=== PATIENT | female | born 1995 | race Caucasian/White ===

== ENCOUNTER 2024-01-27 09:56 | Outpatient (OUT) | payer OTHER, SELFPAY ==
--- NOTE | 2024-01-27 09:58 | US_ITS ---
[address] [address] Patient Name: KEYLA BLANCO MRN: [id number] date: 1995 Sex: F Assigned Patient Location: US Current Patient Location: Accession/Order Number: [id number] Exam Date: 01/27/2024 09:58 Report Date: 01/28/2024 03:20 At the request of: KIMBERLY CHATMAN Procedure: US OB cervical length EXAMINATION: US OB anatomy, US OB cervical length HISTORY: ANATOMY COMPARISON: No relevant comparison available. TECHNIQUE: Transabdominal sonographic examination was performed for obstetrical and evaluation. FINDINGS: Number: 1 Heart Rate: 150 bpm H.B. /min Amniotic Fluid Volume: Subjectively normal Placental Location: ANTERIOR with lower margin 6.0 cm from os. Cervix Length: 3.54 cm ; closed. ANATOMY: Normal Structures -cerebellum, choroid plexus, cisterna magna, lateral cerebral ventricles, orbits, midline falx, hard palate, four-chamber heart, RVOT, LVOT, stomach, kidneys, bladder, umbilical cord insertion into abdomen, three-vessel cord, right upper extremity, left upper extremity, right lower extremity, left lower extremity. SUBOPTIMALLY SEEN: Spine ABNORMALITIES: None BIOMETRY: BPD: 4.64 cm; 20 weeks 0 days; 50.50 % HC: 18.14 cm; 20 weeks 4 days; 67.80 % AC: 16.49 cm; 21 weeks 4 days; 88.10 % FL: 3.29 cm; 20 weeks 2 days; 53.20 % EFW:384.70 g; 89.90 % FL/AC: 19.98 FL/BPD: 71.07 HC/AC: 1.10 GESTATIONAL AGE: Age by EDC: 20 weeks 0 days Age by current US: 20 weeks 4 days ANITRA by current US: 2024-06-11 ANITRA by EDC: 2024-06-15 US/US OB cervical length IMPRESSION: 1. Single live intrauterine with growth detailed above. 2. Suboptimal visualization of the spine due to position. Electronically authenticated by: BABAK FRASER Date: 01/28/2024 03:20
--- NOTE | 2024-01-27 09:58 | US_ITS ---
[address] [address] Patient Name: KEYLA BLANCO MRN: [id number] date: 1995 Sex: F Assigned Patient Location: US Current Patient Location: Accession/Order Number: [id number] Exam Date: 01/27/2024 09:58 Report Date: 01/28/2024 03:20 At the request of: KIMBERLY CHATMAN Procedure: US OB anatomy EXAMINATION: US OB anatomy, US OB cervical length HISTORY: ANATOMY COMPARISON: No relevant comparison available. TECHNIQUE: Transabdominal sonographic examination was performed for obstetrical and evaluation. FINDINGS: Number: 1 Heart Rate: 150 bpm H.B. /min Amniotic Fluid Volume: Subjectively normal Placental Location: ANTERIOR with lower margin 6.0 cm from os. Cervix Length: 3.54 cm ; closed. ANATOMY: Normal Structures -cerebellum, choroid plexus, cisterna magna, lateral cerebral ventricles, orbits, midline falx, hard palate, four-chamber heart, RVOT, LVOT, stomach, kidneys, bladder, umbilical cord insertion into abdomen, three-vessel cord, right upper extremity, left upper extremity, right lower extremity, left lower extremity. SUBOPTIMALLY SEEN: Spine ABNORMALITIES: None BIOMETRY: BPD: 4.64 cm; 20 weeks 0 days; 50.50 % HC: 18.14 cm; 20 weeks 4 days; 67.80 % AC: 16.49 cm; 21 weeks 4 days; 88.10 % FL: 3.29 cm; 20 weeks 2 days; 53.20 % EFW:384.70 g; 89.90 % FL/AC: 19.98 FL/BPD: 71.07 HC/AC: 1.10 GESTATIONAL AGE: Age by EDC: 20 weeks 0 days Age by current US: 20 weeks 4 days ANITRA by current US: 2024-06-11 ANITRA by EDC: 2024-06-15 US/US OB anatomy IMPRESSION: 1. Single live intrauterine with growth detailed above. 2. Suboptimal visualization of the spine due to position. Electronically authenticated by: BBAAK FRASER Date: 01/28/2024 03:20
== END 2024-01-27 09:57 | disposition home or self-care (01) ==
LOC: US 09:56
PROVIDERS: PCP Family Medicine; Visit Provider Midwife
DX: O26.92 Pregnancy related conditions, unspecified, second trimester (principal); Z3A.20 20 weeks gestation of pregnancy
CPT/HCPCS: 76805; 76817

== ENCOUNTER 2024-03-05 15:00 | Observation (INO) | payer OTHER, SELFPAY ==
--- OUTSIDE RECORDS SUMMARY | 2024-03-05 15:19 | XMS_ITS | CCD ---
Author Organization [facility] Informat ion Partnership [employer] [facility] Care Team Providers Care Associate Art Director Name Role Phone CATHI SERRANO Unavailable Unav ailable NO, PHYSICIAN Unavailable Unavailable No, Physician Unavailable Unavailable EDUIN DIAZ Attending Unavailable LYNETTE HAYES Referring Unavailable LYNETTE HAYES Primary Care Unavailable Rosy Harris MD Primary Care Provider Pump TECHNICAL LEAD, Adenike Unavailable Lynette Hayes DO Primary Care Provider [phone] Rosy Harris MD Primary Care Provider PUMP, ADENIKE Attending Unavailable PUMP, ADENIKE Attending Unavailable PUMP, ADENIKE Attending Unavailable COMPA KIMBERLY Irene Attending Unavailable CJO KIMBERLY L Referring Unavailable FLORO KIMBERLY Irene Attending Unavailable FLORO KIMBERLY L Attending Unavailable FLORO KIMBERLY L Referring Unavailable FLORO KIMBERLY L Attending Unavailable Allergies Allergy Classification Reported Allergen(s) Allergy Type Date of Onset Reaction(s) Facility (16 sources) azithromycin; Translations: [AZITHROMYCIN] Drug Allergy 7 GI Intolerance, Vomiting [facility] Three Repository Medications Current Medications Medication Drug Class(es) Dates Sig (Normalized) Sig (Original) Levonorgestrel-Ethin yl Estradiol 0.1 Mg-20 McG Tablet (1 source) Progestin, Estrogen, Progestin-containin g Intrauterine Device take 1 tablet by mouth once daily levonorgestrel-ethi nyl estradiol (AVIANE,ALESSE,LESS ISAAK) 0.1-20 mg-mcg per tablet Take 1 tablet by mouth daily. Active hydrocortisone 25 mg/ml topical cream (1 source) Corticosteroid Start: 11-28-2016 End: 11-28-2017 apply 30 g rectal route twice daily hydrocortisone (ANUSOL-HC) 2.5 % rectal cream Insert into the rectum 2 (two) times a day. 30 g 0 11/28/2016 11/28/2017 Active Vit-Fe Fumarate-FA ( Vitamin) 27-0.8 MG tablet (11 sources) take 1 tablet by mouth in the morning Vit-Fe Fumarate-FA ( Vitamin) 27-0.8 MG tablet Take 1 tablet by mouth in the morning. Active vitamins no.2 ( VITAMIN NO.2 ORAL) (1 source) take 1 tablet by mouth once daily vitamins no.2 ( VITAMIN NO.2 ORAL) Take 1 tablet by mouth daily. Active pyridoxine hydrochloride 25 mg oral tablet (1 source) take 1 tablet by mouth in the morning pyridoxine, vitamin B6, (vitamin B-6) 25 mg tablet Take 1 tablet (25 mg total) by mouth in the morning. Active Completed/Discontinued Medications Medication Drug Class(es) Dates Sig (Normalized) Sig (Original) Multiple Vitamin (multivitamin) tablet (3 sources) End: 11-07-2023 take 1 tablet by mouth once daily Multiple Vitamin (multivitamin) tablet Take 1 tablet by mouth Daily 11/07/2023 Discontinued (Therapy completed) take 1 tablet by mouth once easton y Multiple Vitamin (multivitamin) tablet Take 1 tablet by mouth Daily Active penicillin v potassium 500 mg oral tablet (2 sources) Start: 11-22-2023 End: 11-29-2023 take 1 tablet by mouth in the morning, then take 1 tablet by mouth in the evening, then take 1 tablet by mouth at bedtime penicillin v potassium (Veetid) 500 MG tablet Indications: Group B streptococcal infection Take 1 tablet (500 mg) by mouth in the morning and 1 tablet (500 mg) in the evening and 1 tablet (500 mg) before bedtime. Do all this for 7 days. 21 tablet 11/22/2023 11/29/2023 sertraline 50 mg oral tablet (3 sources) Serotonin Reuptake Inhibitor Start: 09-21-2023 End: 09-20-2024 take 1 tablet by mouth once daily sertraline (Zoloft) 50 MG tablet Indications: Generalized anxiety disorder (CMS/HCC) Take 1 tablet (50 mg) by mouth Daily 30 tablet 11 09/21/2023 11/07/2023 Discontinued (Therapy completed) Problems Active Problems Problem Classification Problem Date Documented Date Episodic/Chronic Anxiety disorders (13 sources) Generalized anxiety disorder; Translations: [Generalized anxiety disorder] Onset: 05-24-2023 05-24-2023 Chronic Asthma (13 sources) Intermittent asthma co-occurrent with allergic rhinitis; Translations: [Mild intermittent asthma, uncomplicated] Onset: 05-24-2023 05-24-2023 Chronic Attention-deficit, conduct, and disruptive behavior disorders (13 sources) Attention deficit hyperactivity disorder, predominantly inattentive type; Translations: [Attention-deficit hyperactivity disorder, predominantly inattentive type] Onset: 05-24-2023 05-24-2023 Chronic Bacterial infection; unspecified site (2 sources) Streptococcus agalactiae infection; Translations: [Streptococcal infection, unspecified site] 11-22-2023 Episodic Menstrual disorders (2 sources) Amenorrhea; Translations: [Amenorrhea, unspecified] 11-07-2023 Chronic Mood disorders (13 sources) Dysthymia; Translations: [Dysthymic disorder] Onset: 05-24-2023 05-24-2023 Chronic Other complications of (2 sources) Finding related to ; Translations: [ related conditions, unspecified, second trimester] 01-03-2024 Episodic Other female genital disorders (12 sources) Premenstrual tension syndrome; Translations: [Premenstrual tension syndrome] Onset: 05-24-2023 05-24-2023 Chronic Other and delivery including normal (17 sources) Encounter for supervision of normal , unspecified, first trimester; Translations: [Normal ] Onset: 10-31-2023 12-07-2023 Episodic Other upper respiratory disease (12 sources) Allergic rhinitis due to animal hair and dander; Translations: [Allergic rhinitis due to animal (cat) (dog) hair and dander] Onset: 05-24-2023 05-24-2023 Chronic Unclassified (1 source) Initial Visit Onset: 10-31-2023 Unclassified (1 source) Patient on antidepressant monitoring plan Onset: 09-21-2023 09-21-2023 Unclassified (1 source) Baseline PHQ-9 Onset: 09-21-2023 09-21-2023 Unclassified (9 sources) OB Reminders Onset: 11-10-2023 11-10-2023 Past or Other Problems Problem Classification Problem Date Documented Da te Episodic/Chronic Anal and rectal conditions (12 sources) Anal fissure; Translations: [Anal fissure, unspecified] Onset: 05-24-2023 Resolved: 05-25-2023 05-25-2023 Episodic Cardiac dysrhythmias (12 sources) Tachycardia; Translations: [Tachycardia, unspecified] Onset: 05-24-2023 Resolved: 05-25-2023 05-25-2023 Episodic Hemorrhoids (3 sources) Residual hemorrhoidal skin tags; Translations: [External hemorrhoids] Onset: 11-28-2016 Episodic Mood disorders (1 source) Mood disorders Onset: 05-26-2022 05-26-2022 Other circulatory disease (12 sources) Elevated blood-pressure reading without diagnosis of hypertension; Translations: [Elevated blood-pressure reading, without diagnosis of hypertension] Onset: 05-24-2023 Resolved: 05-25-2023 05-25-2023 Episodic Other female genital disorders (13 sources) Polyp of cervix; Translations: [Polyp of cervix uteri] Onset: 02-25-2022 05-24-2023 Episodic Other gastrointestinal disorders (12 sources) Constipation; Translations: [Constipation, unspecified] Onset: 05-24-2023 Resolved: 05-25-2023 05-25-2023 Episodic Residual codes; unclassified (13 sources) History of pre-eclampsia; Translations: [Personal history of other complications of , childbirth and the puerperium] Onset: 04-28-2022 Resolved: 05-25-2023 05-25-2023 Episodic Results Test Name Value Interpretation Reference Range Facility Bacteria identified Cx Nom ( U)on 11-10-2023 Appearance (U) Adequate [facility] Bacteria identified Cx Nom (Isol) SEE NOTE Abnormal [facility] Comment on above: 10,000-49,000 CFU/mL of Group B Streptococcus isolated Beta-hemolytic streptococci are predictably susceptible to Penicillin and other beta-lactams. Susceptibility testing not routinely performed. Please contact the laboratory within 3 days if susceptibility testing is desired. Erythromycin and clindamycin are not recommended for treatment of urinary tract infections, but clindamycin may be useful for treatment of rectovaginal colonization or infection. Any amount of group B Streptococcus in urine specimens obtained from females is a marker of genital tract colonization. If this patient is , please refer to ACOG guidelines for appropriate screening and management of women. Internal identifier for Provider [id number] [facility] Interpretation and review of laboratory results Abnormal [facility] Specimen source Nom (Unsp spec) URINE [facility] STATUS FINAL [facility] Laboratory - Drug toxicology on 11-10-2023 0-Ohvdwpkcbc-3,5-Dimethy l-3,3-Diphenylpyrrolidin e (EDDP) Ql (U) Negative NINF - 100 ng/mL [facility] Amphetamines Ql (U) Negative NINF - 5 00 ng/mL [facility] Barbiturates Ql (U) Negative NINF - 3 00 ng/mL [facility] Benzodiazepines Ql (U) Negative NINF - 100 ng/mL [facility] Benzoylecgonine Ql (U) Negative NINF - 150 ng/mL [facility] Opiates Ql (U) Negative NINF - 100 ng/mL [facility] oxyCODONE Ql (U) Negative NINF - 100 ng/mL [facility] Phencyclidine Ql (U) Negative NINF - 25 ng/mL [facility] Tetrahydrocannabinol Screen method >20 ng/mL Ql (U) Negative NINF - 20 ng/mL [facility] Laboratory - Urinalysison Bacteria LM.HPF (Urine sed) [#/Area] NONE SEEN NONE SEEN /HPF [facility] Epithelial cells.squamous LM.HPF (Urine sed) [#/Area] 0-5 < OR = 5 /HPF [facility] Hyaline casts (Urine sed) [#/Area] NONE SEEN NONE SEEN /LPF [facility] RBC LM.HPF (Urine sed) [#/Area] NONE SEEN < OR = 2 /HPF [facility] WBC LM.HPF (Urine sed) [#/Area] NONE SEEN < OR = 5 /HPF [facility] N. gonorrhoeae DNA YULIYA+probe Ql (Cervical mucus)on 11-10-2023 C. trachomatis rRNA YULIYA+probe Ql (Unsp spec) Not detected NOT DETECTED [facility] N. gonorrhoeae rRNA YULIYA+probe Ql (Unsp spec) Not detected NOT DETECTED [facility] No Panel Informationon 11-09 (ALWAYS MESSAGE) [facility] Comment on above: See Note 1 Note 1 This drug testing is for medical treatment only. Analysis was performed as non-forensic testing and these results should be used only by healthcare providers to render diagnosis or treatment, or to monitor progress of medical conditions. For assistance with interpreting these drug results, please contact a [facility]ist: [phone] ( ), M-F, 8am-6pm EST. The analytical perfo rmance characteristics of this assay, when used to test SurePath(TM) specimens have been determined by [facility]. The modifications have not been cleared or approved by the FDA. This assay has been validated pursuant to the CLIA regulations and is used for clinical purposes. For additional information, please refer to https://education.Wowsai/faq/MGA010 (This link is being provided for information/ educational purposes only.) Performing Organization Information Site ID: QPT Name: [facility] Address: [address] [place] [address], [address] [place] [id number] Director: Filemon Chadwick MD [facility] CBC panel Auto (Bld)on 11-07 Erythrocyte distribution width (RBC) [Ratio] 12.8 % 11.0 - 15.0 % [facility] Hematocrit (Bld) [Volume fraction] 42.4 % 35.0 - 45.0 % [facility] Hemoglobin (Bld) [Mass/Vol] 14.2 g/dL 11.7 - 15.5 g/dL [facility] MCH (RBC) [Entitic mass] 30 pg 27. 0 - 33.0 pg [facility] MCHC (RBC) [Mass/Vol] 33.5 g/dL 32.0 - 36.0 g/dL [facility] Comment on above: For adults, a slight decrease in the calculated MCHC value (in the range of 30 to 32 g/dL) is most likely not clinically significant; however, it should be interpreted with caution in correlation with other red cell parameters and the patient's clinical condition. MCV (RBC) [Entitic vol] 89.5 fL 80.0 - 100.0 fL [facility] Platelet mean volume (Bld) [Entitic vol] 9.2 fL 7.5 - 12.5 fL [facility] Platelets (Bld) [#/Vol] 269 10*3/uL [facility] RBC (Bld) [#/Vol] 4.74 10*6/uL [facility] WBC (Bld) [#/Vol] 7.6 10*3/uL [facility] Laboratory - Blood bankon ABO group Nom (Bld) A [facility] Blood group antibody screen Ql Detected [facility] Comment on above: Reference range No antibodies detected This assay is a screening test for the detection of red blood cell antibodies. The test is not to be used for pretransfusion screening or for the medical management of an alloimmunized . Rh Nom (Bld) Positive [facility] Comment on above: For additional information, please refer to http://Hair Scynce.YuanV/faq/SFY745 (This link is being provided for informational/ educational purposes only.) Laboratory - Chemistry and C hemistry - challengeon 11-08-2023 TSH Qn 1.09 m[IU]/L mIU/L [facility] Comment on above: Reference Range > or = 20 Years 0.40-4.50 Ranges First trimester 0.26-2.66 Second trimester 0.55-2.73 Third trimester 0.43-2.91 Laboratory - Hematology and Cell countson 11-08-2023 HbA1c (Bld) [Mass fraction] 5 % [facility] Comment on above: For the purpose of s creening for the presence of diabetes: <5.7% Consistent with the absence of diabetes 5.7-6.4% Consistent with increased risk for diabetes (prediabetes) > or =6.5% Consistent with diabetes This assay result is consistent with a decreased risk of diabetes. Currently, no consensus exists regarding use of hemoglobin A1c for diagnosis of diabetes in children. According to [place] [employer] (ADA) guidelines, hemoglobin A1c <7.0% represents optimal control in non- diabetic patients. Different metrics may apply to specific patient populations. Standards of Medical Care in Diabetes(ADA). Laboratory - Microbiology an d Antimicrobial susceptibilityon 11-08-2023 HBV surface Ag IA Ql Non-Reactive NON-REACTIVE [facility] Comment on above: For additional information, please refer to http://Hair Scynce.Wowsai/faq/GUB650 (This link is being provided for informational/ educational purposes only.) HCV Ab IA Ql Non-Reactive NON-REACTIVE [facility] Comment on above: HCV antibody was non-reactive. There is no laboratory evidence of HCV infection. In most cases, no further action is required. However, if recent HCV exposure is suspected, a test for HCV RNA (test code 02621) is suggested. For additional information please refer to http://education.Wowsai/faq/GQK91i0 (This link is being provided for informational/ educational purposes only.) HIV 1+2 Ab+HIV1 p24 Ag IA Ql Non-Reactive NON-REACTIVE [facility] Comment on above: HIV-1 antigen and HI V-1/HIV-2 antibodies were not detected. There is no laboratory evidence of HIV infection. PLEASE NOTE: This information has been disclosed to you from records whose confidentiality may be protected by state law. If your state requires such protection, then the state law prohibits you from making any further disclosure of the information without the specific written consent of the person to whom it pertains, or as otherwise permitted by law. A general authorization for the release of medical or other information is NOT sufficient for this purpose. For additional information please refer to http://education.Wowsai/faq/XNY583 (This link is being provided for informational/ educational purposes only.) The performance of this assay has not been clinically validated in patients less than 2 years old. Reagin Ab RPR Ql (S) Non-Reactive NON-REACTIVE [facility] Rubella virus IgG Qn (S) 1.68 [IU]/mL Index [facility] Comment on above: Index Interpretation ----- <0.90 Not consistent with immunity 0.90-0.99 Equivocal > or = 1.00 Consistent with immunity The presence of rubella IgG antibody suggests immunization or past or current infection with rubella virus. No Panel Informationon 11-07 MULTIPLE COLLECTION TIMES FOR SAME TEST TYPE. [employer] Organization Information Site ID: QPT Name: [facility] Address: [address] [place] [address], [address] [place] [phone] Director: Filemon Chadwick MD [facility] HCG ( test) Ql (U)o n 11-07-2023 Interpretation and review of laboratory results Abnormal [facility] Preg Test, Ur Positive [facility] US OB < 14 WEEKS EARLYon US OB < 14 WEEKS EARLY EXAM: OB Ultrasound: REASON FOR EXAM: Viability/dating. Amenorrhea. TECHNIQUE: Grayscale imaging is performed. Measurements: heart rate: 174 bpm Sac: 3.2 cm CRL: 1.8 cm GA for sonogram: 8.3 wk (07.6 - 09.0) ANITRA: 06/15/2024 Clinical Summary: Early intrauterine is seen with positive cardiac activity. heart is observed with a heart rate of 174 bpm. Dictated and transcribed 11/07/2023/ This report has been electronically signed and approved by the interpreting radiologist. Electronically Signed Carmelo Perez M.D. 2023-11-07 15:57:52 Normal Not Available Complete Blood Count with Au to Diffon 01-27-2021 Basophils (Bld) [#/Vol] 0.03 10*3/uL Normal 0.00-0.20 [facility] Comment on above: Performed By: #### C BCAD, LIPD, TSH reflex FT4, CMP #### [facility] [address] [place], [place] [id number] Basophils/100 WBC (Bld) 0.3 % Normal [facility] Comment on above: Performed By: #### C BCAD, LIPD, TSH reflex FT4, CMP #### [facility] [address], [place] [id number] Eosinophils (Bld) [#/Vol] 0.07 10*3/uL Normal 0.02-0.50 [facility] Comment on above: Performed By: #### C BCAD, LIPD, TSH reflex FT4, CMP #### [facility] [address], [place] [id number] Eosinophils/100 WBC (Bld) 0.6 % Normal [facility] Comment on above: Performed By: #### C BCAD, LIPD, TSH reflex FT4, CMP #### [facility] [address], [place] [id number] Erythrocyte distribution width (RBC) [Ratio] 12.4 % Normal 11.0-15.0 [facility] Comment on above: Performed By: #### C BCAD, LIPD, TSH reflex FT4, CMP #### [facility] [address], [place] [id number] Hematocrit (Bld) [Volume fraction] 37.9 % Normal 35.0-47.0 [facility] Comment on above: Performed By: #### C BCAD, LIPD, TSH reflex FT4, CMP #### [facility] [address], [place] [id number] Hemoglobin (Bld) [Mass/Vol] 12.6 g/dL Normal 11.6-15.5 [facility] Comment on above: Performed By: #### C BCAD, LIPD, TSH reflex FT4, CMP #### [facility] [address], [place] [id number] Lymphocytes (Bld) [#/Vol] 1.5 10*3/uL Normal 0.9-3.9 [facility] Comment on above: Performed By: #### C BCAD, LIPD, TSH reflex FT4, CMP #### [facility] [address], [place] [id number] Lymphocytes/100 WBC (Bld) 12.4 % Normal [facility] Comment on above: Performed By: #### C BCAD, LIPD, TSH reflex FT4, CMP #### [facility] [address], [place] [id number] MCH (RBC) [Entitic mass] 29.1 pg Normal 27.0-33.0 [facility] Comment on above: Performed By: #### C BCAD, LIPD, TSH reflex FT4, CMP #### [facility] [address], [place] [id number] MCHC (RBC) [Mass/Vol] 33.2 g/dL Normal 32.0-36.0 [facility] Comment on above: Performed By: #### C BCAD, LIPD, TSH reflex FT4, CMP #### [facility] [address], [place] [id number] MCV (RBC) [Entitic vol] 88 fL Normal 80-100 [facility] Special[facility] Comment on above: Performed By: #### C BCAD, LIPD, TSH reflex FT4, CMP #### [facility] [address], [place] [id number] Monocytes (Bld) [#/Vol] 0.9 10*3/uL Normal 0.2-0.9 [facility] Comment on above: Performed By: #### C BCAD, LIPD, TSH reflex FT4, CMP #### [facility] [address], [place] [id number] Monocytes/100 WBC (Bld) 7.5 % Normal [facility] Comment on above: Performed By: #### C BCAD, LIPD, TSH reflex FT4, CMP #### [facility] [address], [place] [id number] Neutrophils (Bld) [#/Vol] 9.4 10*3/uL High 1.5-7.8 [facility] Comment on above: Performed By: #### C BCAD, LIPD, TSH reflex FT4, CMP #### [facility] [address], [place] [id number] Neutrophils/100 WBC (Bld) 78.7 % Normal [facility] Comment on above: Performed By: #### C BCAD, LIPD, TSH reflex FT4, CMP #### [facility] [address], [place] [id number] Platelet mean volume (Bld) [Entitic vol] 9.80 fL Normal 7.50-12.50 [facility] Comment on above: Performed By: #### C BCAD, LIPD, TSH reflex FT4, CMP #### [facility] [address] [place], [place] [id number] Platelets (Bld) [#/Vol] 308 10*3/uL Normal 140-400 [facility] Comment on above: Performed By: #### C BCAD, LIPD, TSH reflex FT4, CMP #### [facility] [address] [place], [place] [id number] RBC (Bld) [#/Vol] 4.33 10*6/uL Normal 3.90-5.20 [facility] Specialist Comment on above: Performed By: #### C BCAD, LIPD, TSH reflex FT4, CMP #### [facility] [address] [place], [place] [id number] RDW-SD 39.6 fL Normal 37.0-50.0 [facility] Comment on above: Performed By: #### C BCAD, LIPD, TSH reflex FT4, CMP #### [facility] [address], [place] [id number] WBC (Bld) [#/Vol] 11.9 10*3/uL High 3.8-11.0 [facility] Comment on above: Performed By: #### C BCAD, LIPD, TSH reflex FT4, CMP #### [facility] [address] [place], [place] [id number] [facility] 01-27-2021 Albumin [Mass/Vol] 4.9 g/dL Normal 3.6-5.1 [facility] Comment on above: Performed By: #### C BCAD, LIPD, TSH reflex FT4, CMP #### [facility] [address], [place] [id number] Albumin/Globulin [Mass ratio] 1.9 {ratio} Normal 1.0-2.5 [facility] Comment on above: Performed By: #### C BCAD, LIPD, TSH reflex FT4, CMP #### [facility] [address], [place] [id number] ALP [Catalytic activity/Vol] 73 U/L Normal 35-119 [facility] Comment on above: Performed By: #### C BCAD, LIPD, TSH reflex FT4, CMP #### [facility] [address], [place] [id number] ALT [Catalytic activity/Vol] 9 U/L Normal 6-33 [facility] Comment on above: Result Comment: 01/06 Female reference range changed. Performed By: #### C BCAD, LIPD, TSH reflex FT4, CMP #### [facility] [address], [place] [id number] Anion gap [Moles/Vol] 16 mmol/L Normal 12-20 [facility] Comment on above: Result Comment: Effe ctive 02/11/2019 reference range changed. Performed By: #### C BCAD, LIPD, TSH reflex FT4, CMP #### [facility] [address], [place] [id number] AST [Catalytic activity/Vol] 14 U/L Normal 9-34 [facility] Comment on above: Performed By: #### C BCAD, LIPD, TSH reflex FT4, CMP #### [facility] [address], [place] [id number] Bilirubin [Mass/Vol] 0.90 mg/dL Normal 0.30-1.20 [facility] Comment on above: Performed By: #### C BCAD, LIPD, TSH reflex FT4, CMP #### [facility] [address] [place], [place] [id number] BUN/CREA 18 Ratio Normal 6-22 [facility] Comment on above: Performed By: #### C BCAD, LIPD, TSH reflex FT4, CMP #### [facility] [address] [place], [place] [id number] Calcium [Mass/Vol] 10.1 mg/dL Normal 8.6-10.2 [facility] Comment on above: Performed By: #### C BCAD, LIPD, TSH reflex FT4, CMP #### [facility] [address] [place], [place] [id number] Chloride [Moles/Vol] 105 mmol/L Normal 98-107 [facility] Comment on above: Performed By: #### C BCAD, LIPD, TSH reflex FT4, CMP #### [facility] [address] [place], [place] [id number] CO2 [Moles/Vol] 24 mmol/L Normal 20-31 [facility] Comment on above: Performed By: #### C BCAD, LIPD, TSH reflex FT4, CMP #### [facility] [address] [place], [place] [id number] Creatinine [Mass/Vol] 0.6 mg/dL Normal 0.6-1.4 [facility] Comment on above: Performed By: #### C BCAD, LIPD, TSH reflex FT4, CMP #### [facility] [address] [place], [place] [id number] eGFRAA 149 mL/min/1.73m2 Normal >60 [facility] Specialist Comment on above: Performed By: #### C BCAD, LIPD, TSH reflex FT4, CMP #### [facility] [address] [place] [id number] eGFRNAA 123 mL/min/1.73m2 Normal >60 [facility] Specialist Comment on above: Performed By: #### C BCAD, LIPD, TSH reflex FT4, CMP #### [facility] [address] [place], [place] [id number] Globulin (S) [Mass/Vol] 2.6 g/dL Normal 1.9-3.7 [facility] Comment on above: Performed By: #### C BCAD, LIPD, TSH reflex FT4, CMP #### [facility] [address] [place], [place] [id number] Glucose [Mass/Vol] 88 mg/dL Normal 65-99 [employer] [place] [employer] Coordinator Comment on above: Result Comment: For FASTING Glucose --- ADA reference ranges: Normal 65-99 mg/dl Prediabetes 100-125 Diabetes >/= 126 Performed By: #### C BCAD, LIPD, TSH reflex FT4, CMP #### [facility] [address] [place], [place] [id number] Potassium [Moles/Vol] 4.1 mmol/L Normal 3.5-5.5 [facility] Specialist Comment on above: Performed By: #### C BCAD, LIPD, TSH reflex FT4, CMP #### [facility] [address] [place], [place] [id number] Protein [Mass/Vol] 7.5 g/dL Normal 6.1-8.1 [employer] [place] [employer] Comment on above: Performed By: #### C BCAD, LIPD, TSH reflex FT4, CMP #### [facility] [address] [place], [place] [id number] Sodium [Moles/Vol] 140 mmol/L Normal 135-146 [employer] [place] [employer] Coordinator Comment on above: Performed By: #### C BCAD, LIPD, TSH reflex FT4, CMP #### [facility] [address] [place], [place] [id number] Urea nitrogen [Mass/Vol] 11 mg/dL Normal 7-25 [facility] Specialist Comment on above: Performed By: #### C BCAD, LIPD, TSH reflex FT4, CMP #### [facility] [address] [place], [place] [id number] Lipid Panelon 01-27-2021 Cholesterol [Mass/Vol] 152 mg/dL Normal 125-200 [facility] Comment on above: Result Comment: Low risk < 200mg/dL Borderline risk 201-239 mg/dl High risk > or equal to 240 Performed By: #### C BCAD, LIPD, TSH reflex FT4, CMP #### [facility] [address] [place], [place] [id number] Cholesterol in HDL [Mass/Vol] 50 mg/dL Normal >40 [facility] Specialist Comment on above: Result Comment: High Cardiovascular Risk HDL <40 mg/dL Low Cardiovascular Risk HDL > or equal to 60 mg/dl Performed By: #### C BCAD, LIPD, TSH reflex FT4, CMP #### [facility] [address] [place], [place] [id number] Cholesterol in LDL [Mass/Vol] 91 mg/dL Normal [facility] Comment on above: Result Comment: LDL ATP III CLASSIFICATION LDL less than 100 mg/dl Optimal LDL 100-129 mg/dl Near or above optimal LDL 130-159 Borderline high LDL 160-189 High LDL greater than 189 mg/dl Very High Performed By: #### C BCAD, LIPD, TSH reflex FT4, CMP #### [facility] [address] [place], [place] [id number] Cholesterol in VLDL [Mass/Vol] 11 mg/dL Normal [facility] Specialist Comment on above: Performed By: #### C BCAD, LIPD, TSH reflex FT4, CMP #### [facility] [address] [place], [place] [id number] Cholesterol.total/Choles terol in HDL [Mass ratio] 3 {ratio} Normal [facility] Specialist Comment on above: Performed By: #### C BCAD, LIPD, TSH reflex FT4, CMP #### [facility] [address] [place], [place] [id number] Triglyceride [Mass/Vol] 55 mg/dL Normal 30-150 [facility] Fundraising Coordinator Comment on above: Result Comment: TRIG ATPIII CLASSIFICATIONS TRIG less than 150 mg/dl Normal TRIG 150-199 mg/dl Borderline High TRIG 200-500 mg/dl High TRIG greather than 500 mg/dl Very High Performed By: #### C BCAD, LIPD, TSH reflex FT4, CMP #### [facility] [address] [place], [place] [id number] Q - CULTURE,URINE,ROUTINEon 01-27-2021 CULTURE, URINE, ROUTINE SEE NOTE Normal [facility] Fundraising Coordinator Comment on above: Order Comment: [facility] Testing performed at: [employer] [employer] [facility], [address] [place] [address], [address] [place] [address], [phone], Website Developer: Filemon Chadwick MD [facility] Collection Date/Time: [facility] Results Received Date/Time: [facility] Reported Date/Time: Result Comment: CULT URE, URINE, ROUTINE Micro Number: [id number] Test Status: Final Specimen Source: Urine Specimen Quality: Adequate Result: Growth of mixed jairo was isolated, suggesting probable contamination. No further testing will be performed. If clinically indicated, recollection using a method to minimize contamination, with prompt transfer to Urine Culture Transport Tube, is recommended. Performed By: #### [id number] #### [facility] Default [address] [place] [address] TSH w/ Reflex to Free T4on 1 03-30-2020 TSH 0.733 uIU/mL Normal 0.400-4.500 [facility] Fundraising Coordinator Comment on above: Performed By: #### C BCAD, LIPD, TSH reflex FT4, CMP #### [facility] [address] [place], [place] [id number] Vital Signs Date Time Vital Sign Value Performing Clinician Facility 02-06-2024 11:29-0500 Body mass index (BMI) [Ratio] 30.21 kg/m2 Kimberly Barajas CNM Work Phone: [facility] 02-06-2024 11:29-0500 Body weight 86.18 kg Kimberly Floro CNM Work Phone: [facility] 02-06-2024 11:29-0500 Diastolic blood pressure 80 mm[Hg] Kimberly Floro CNM Work Phone: [facility] 02-06-2024 11:29-0500 Systolic blood pressure 118 mm[Hg] Kimberly Floro CNM Work Phone: [facility] 01-03-2024 11:25-0500 Body mass index (BMI) [Ratio] 29.25 kg/m2 Kimberly Floro CNM Work Phone: [facility] 01-03-2024 11:25-0500 Body weight 83.46 kg Kimberly Floro CNM Work Phone: [facility] 01-03-2024 11:25-0500 Diastolic blood pressure 80 mm[Hg] Kimberly Floro CNM Work Phone: [facility] 01-03-2024 11:25-0500 Systolic blood pressure 120 mm[Hg] Kimberly Floro CNM Work Phone: [facility] 12-07-2023 10:28-0400 Body mass index (BMI) [Ratio] 29.73 kg/m2 Kimberly Floro CNM Work Phone: [facility] 12-07-2023 10:28-0400 Body weight 84.82 kg Kimberly Floro CNM Work Phone: [facility] 11-07-2023 10:28-0400 Body mass index (BMI) [Ratio] 29.09 kg/m2 Kimberly Floro CNM Work Phone: [facility] 11-07-2023 10:28-0400 Body weight 83.01 kg Kimberly Floro CNM Work Phone: [facility] 11-28-2016 17:31-0400 BMI (Body Mass Index) 27.28 kg/m2 Cathi Serrano [facility] Work Phone: 11-28-2016 17:31-0400 Body Temperature 99.19 [degF] Cathi Serrano [facility] Work Phone: 11-28-2016 17:31-0400 BP Diastolic 93 mm[Hg] Cathi Serrano [facility] Work Phone: 11-28-2016 17:31-0400 BP Systolic 143 mm[Hg] Cathi Serrano [facility] Work Phone: 11-28-2016 17:31-0400 Height 167.6 cm Cathi Serrano [facility] Work Phone: 11-28-2016 17:31-0400 Pulse (Heart Rate) 76 /min Cathi Serrano [facility] Work Phone: 11-28-2016 17:31-0400 Pulse Oximetry 98 % Cathi Serrano [facility] Work Phone: 11-28-2016 17:31-0400 Respiratory Rate 16 /min Cathi Serrano [facility] Work Phone: 11-28-2016 17:31-0400 Weight 76.66 kg Cathi Serrano [facility] Work Phone: Encounters Encounter Date Encounter Type Care Provider Facility Start: 02-06-2024 End: 02-06-2024 Bamboo flowsheet Kimberly Barajas CN Work Phone: [facility] Start: 02-06-2024 End: 02-06-2024 Bamboo flowsheet Kimberly Pérezo CNM Work Phone: [facility] Start: 02-06-2024 End: 02-06-2024 Subsequent care visit Kimberly Barajas CNM Work Phone: [facility] Comment on above: Encounter for superv ision of other normal , second trimester (Primary Dx) Start: 02-06-2024 End: 02-06-2024 ambulatory KIMBERLY BARAJAS Not Available Start: 01-03-2024 End: 01-03-2024 Bamboo flowsheet Kimberly Irene Pérezo CNM Work Phone: [facility] Start: 01-03-2024 End: 01-03-2024 Bamboo flowsheet Kimberly L Floro CNM Work Phone: [facility] Start: 01-03-2024 End: 01-03-2024 Subsequent care visit Kimberly Pérezo CNM Work Phone: [facility] Comment on above: examinatio n or test, positive result; Encounter for supervision of other normal , first trimester; related condition in second trimester Start: 01-03-2024 End: 01-03-2024 ambulatory KIMBERLY L FLORO Not Available Start: 12-07-2023 End: 12-07-2023 Bamboo flowsheet Kimberly L Floro CNM Work Phone: [facility] Start: 12-07-2023 End: 12-07-2023 Bamboo flowsheet Kimberly L Floro CNM Work Phone: [facility] Start: 12-07-2023 End: 12-07-2023 Subsequent care visit Kimberly Pérezo CNM Work Phone: [facility] Comment on above: Encounter for superv ision of other normal , second trimester (Primary Dx) Start: 12-07-2023 End: 12-07-2023 ambulatory KIMBERLY L FLORO Not Available Start: 11-14-2023 End: 11-16-2023 Telephone encounter Caitlin Oreillyedicjenny [facility]ician [facility] Obstetrics[facility]Gynecology Start: 11-07-2023 End: 11-07-2023 Bamboo flowsheet Kimberly L Floro CNM Work Phone: [facility] Start: 11-07-2023 End: 11-07-2023 Bamboo flowsheet Kimberly L Floro CNM Work Phone: [facility] Start: 11-07-2023 End: 11-07-2023 Initial care visit Kimberly L Floro CNM Work Phone: [facility] Comment on above: GA: 8w3d Start: 11-07-2023 End: 11-07-2023 ambulatory KIMBERLY L FLORO Not Available Start: 10-31-2023 End: 10-31-2023 ambulatory [facility] Start: 09-21-2023 End: 09-21-2023 ambulatory ADENIKE PUMP Not Available Start: 06-22-2023 End: 06-22-2023 ambulatory ADENIKE PUMP Not Available Start: 05-25-2023 End: 05-25-2023 ambulatory ADENIKE PUMP Not Available Start: 11-28-2016 End: 11-28-2016 Ambulatory CATHI SERRANO [facility] Start: 11-28-2016 End: 11-28-2016 Office outpatient new 30 minutes Cathi Serrano Work Phone: [facility] [place] Comment on above: External hemorrhoid (Primary Dx) Procedures Date Procedure Procedure Detail Performing Clinician Start: 11-07-2023 End: 11-07-2023 Culture bacterial quanttative colony count urine Kimberly L Floro CNM Work Phone: Start: 11-07-2023 DRUG TOX MONITORIGN 6 W/ CONF,URINE Kimberly L Floro CNM Work Phone: Start: 11-07-2023 URINALYSIS MICROSCOPIC Kimberly L Floro C NM Work Phone: Start: 11-07-2023 Antibody screen rbc each serum technique Kimberly L Floro CNM Work Phone: Start: 11-07-2023 Hemoglobin glycosylated a1c Kimberly L Floro CNM Work Phone: Start: 11-07-2023 TSH W/REFLEX TO FT4 Kimberly L Floro CNM Work Phone: Start: 11-07-2023 Urine test visual color cmprsn meths Kimberly L Floro CNM Work Phone: Start: 05-24-2023 End: 05-25-2023 History of cholecystectomy History of laparoscopic cholecystectomy Kimberly Barajas CNM Work Phone: Start: 06-01-2022 Microscopic observation [Identifier] in Cervix by Cyto stain Caitlin Eaton Start: 05-26-2022 Adult depression screening assessment Caitlin Eaton Plan of Treatment Date Care Activity Detail Author Start: 02-10-2032 DTaP,Tdap and Td Vaccines (8 - Td or Tdap) DTaP,Tdap and Td Vaccines (8 - Td or Tdap) [facility] Start: 06-01-2025 Screening for malign ant neoplasm of cervix Pap Smear [facility] Start: 10-30-2024 Tobacco Screening Tobacco Screening [facility] Start: 03-20-2024 End: 03-20-2024 Patient encounter procedure 03/20/2024 8:00 AM EST Office Visit [facility] [address] [place] [id number] Adenike Atkins NP [address] [place] [address] [facility] Start: 03-05-2024 End: 03-05-2024 Patient encounter procedure 03/05/2024 1:00 PM EST Routine [facility] [address] [place] [phone] Kimberly Barajas CNM [address] [place] [address] [facility] Start: 02-06-2024 End: 02-06-2024 Patient encounter procedure [facility] Comment on above: Arrived Start: 01-03-2024 End: 01-02-2025 US for US OB follow up transabdominal approach Imaging Routine related condition in second trimester Expected: 01/03/2024, Expires: 01/02/2025 [facility] Work Phone: Comment on above: Expected: 01/03/2024 , Expires: 01/02/2025 Start: 01-03-2024 End: 01-03-2024 Patient encounter procedure [facility] Comment on above: examinatio n or test, positive result; Encounter for supervision of other normal , first trimester Start: 12-07-2023 End: 12-07-2023 Patient encounter procedure 12/07/2023 10:15 AM EDT Routine [facility] [address] [place] [phone] Kimberly Barajas, CNM [address] [place] [address] Arrived [facility] Comment on above: Arrived Start: 11-07-2023 End: 11-07-2023 Professional / ancillary services management 11/07/2023 11:00 AM EDT Ancillary Procedure [facility] [address] [id number] [facility] Start: 11-07-2023 End: 11-07-2023 ambulatory 11/07/2023 10:30 AM EDT Initial [facility] [address] [place] [phone] Kimberly Barajas, JUDITH [address] [place] [address] Arrived [facility] Comment on above: Arrived Start: 10-08-2023 COVID-19 Vaccine ( season) COVID-19 Vaccine ( season) [facility] Start: 10-08-2023 Influenza vaccination [facility] Start: 06-02-2023 Adult BMI Screening Adult BMI Screen ing [facility] Start: 05-27-2023 Depression Screening Depression Scre ening [facility] Start: 10-07-2016 Influenza vaccination SEQUENTI AL INFLUENZA VACCINE (#1) [facility] Work Phone: Start: 06-21-2007 Vaccination for li n papillomavirus HPV VACCINES (1 of 3 - Female 3 Dose Series) [facility] Work Phone: Start: 1996 Tetanus vaccination TETANUS EVERY 10 YR [facility] Work Phone: Immunizations Immunization Date Immunization Notes Care Provider Jack hernandez 02-09-2022 tetanus toxoid, reduced diphtheria toxoid, and acellular pertussis vaccine, adsorbed Kimberly Floro CNM Work Phone: [facility] 12-01-2021 influenza, injectabl e, quadrivalent, preservative free Kimberly Floro CNM Work Phone: [facility] 12-01-2021 influenza virus vaccine, unspecified formulation Kimberly Floro CNM Work Phone: [facility] 11-25-2020 influenza, injectabl e, quadrivalent, contains preservative Kimberly Floro CNM Work Phone: [facility] 06-04-2020 COVID-19, mRNA, LNP- S, PF, 100mcg/0.5mL Dose [facility] 05-07-2020 COVID-19, mRNA, LNP- S, PF, 100mcg/0.5mL Dose [facility] 11-15-2019 influenza, injectabl e, quadrivalent, contains preservative Kimberly Floro CNM Work Phone: [facility] 11-20-2017 seasonal influenza, intradermal, preservative free Kimberly Floro CNM Work Phone: [facility] 11-16-2017 influenza, injectabl e, quadrivalent, preservative free Kimberly Floro CNM Work Phone: [facility] 10-09-2015 influenza, seasonal, injectable, preservative free Kimberly Floro CNM Work Phone: [facility] 10-09-2015 tetanus toxoid, reduced diphtheria toxoid, and acellular pertussis vaccine, adsorbed Kimberly Floro CNM Work Phone: [facility] 02-10-2013 influenza, seasonal, injectable Kimberly Floro CNM Work Phone: [facility] 08-24-2001 diphtheria, tetanus toxoids and acellular pertussis vaccine, unspecified formulation Kimberly Floro CNM Work Phone: [facility] 08-24-2001 measles, mumps and rubella virus vaccine Kimberly Floro CNM Work Phone: [facility] 08-24-2001 poliovirus vaccine, inactivated Kimberly Floro CNM Work Phone: [facility] 11-21-1997 diphtheria, tetanus toxoids and acellular pertussis vaccine Kimberly Floro CNM Work Phone: [facility] 11-21-1997 haemophilus influenz ae type b vaccine, conjugate unspecified formulation Kimberly Floro CNM Work Phone: [facility] 11-21-1997 measles, mumps and rubella virus vaccine Kimberly Floro CNM Work Phone: [facility] 11-21-1997 poliovirus vaccine, inactivated Kimberly Floro CNM Work Phone: [facility] 04-14-1997 diphtheria, tetanus toxoids and acellular pertussis vaccine Kimberly Floro CNM Work Phone: [facility] 04-14-1997 haemophilus influenz ae type b vaccine, conjugate unspecified formulation Kimberly Floro CNM Work Phone: [facility] 04-14-1997 hepatitis B vaccine, pediatric or pediatric/adolescent dosage Kimberly Floro CNM Work Phone: [facility] 1996 diphtheria, tetanus toxoids and acellular pertussis vaccine Kimberly Floro CNM Work Phone: [facility] 1996 haemophilus influenz ae type b vaccine, conjugate unspecified formulation Kimberly Floro CNM Work Phone: [facility] 1996 poliovirus vaccine, inactivated Kimberly Floro CNM Work Phone: [facility] 1996 diphtheria, tetanus toxoids and acellular pertussis vaccine Kimberly Floro CNM Work Phone: [facility] 1996 haemophilus influenz ae type b vaccine, conjugate unspecified formulation Kimberly Cjo CNM Work Phone: [facility] 1996 hepatitis B vaccine, pediatric or pediatric/adolescent dosage Kimberly Cjo CNM Work Phone: [facility] 1996 poliovirus vaccine, inactivated Kimberly Floro CNM Work Phone: [facility] 1996 hepatitis B vaccine, pediatric or pediatric/adolescent dosage Kimberly Floro CNM Work Phone: [facility] Payers Date Payer Category Payer Managed Care O (unspecified) [id number] 2023 Private Health Insurance [employer]Y [employer]ANO POS [id number] 2023-Present [phone] [address] [place] [address] [id number] 2023 Private Health Insurance [id number] 2022 Private Health Insurance [id number] 2015 Private Health Insurance [id number] 1996 Unknown [id number] 1996 Unknown [id number] 1996 Unknown [id number] 1996 Unknown [id number] 1996 Unknown [id number] 259 1996 Unknown [id number] 259 1996 Unknown [id number] 259 1996 Unknown [id number] 259 1996 Unknown [id number] 259 Social History Date Type Detail Facility Start: 11-28-2016 Tobacco smoking status [facility] Unknown if ever smoked [employer] Work Phone: Start: 1996 Sex Assigned At Not on file [employer] Phone: Start: 09-16-2021 End: 05-25-2023 Tobacco smoking status [facility] Never smoked tobacco [facility] Start: 09-16-2021 End: 05-25-2023 Tobacco use and exposure Smokeless tobacco non-user [facility] Start: 09-21-2023 End: 11-07-2023 Alcoholic beverage intake Ex-drinker (finding) [facility] Start: 06-15-2023 End: 06-22-2023 History of Social function [facility] Start: 06-15-2023 End: 06-22-2023 Social connection and isolation panel [facility] Do you belong to any clubs or organizations such as mosque groups, unions, fraternal or athletic groups, or school groups? Yes [facility] Are you now , , , , never or living with a partner? [facility] How often to you hav e a drink containing alcohol? Monthly or less [facility] How many standard dr inks containing alcohol do you have on a typical day? 1 or 2 [facility] How often do you hav e 6 or more drinks on 1 occasion? Never [facility] How hard is it for y ou to pay for the very basics like food, housing, medical care, and heating Not hard at all [facility] Do you feel stress - tense, restless, nervous, or anxious, or unable to sleep at night because your mind is troubled all the time - these days [OSQ] Not at all [facility] (I/We) worried wheth er (my/our) food would run out before (I/we) got money to buy more. Never true [facility] In the past 12 month s, was there a time when you were not able to pay the mortgage or rent on time? No [facility] Start: 04-13-2022 Gender identity Identifies as female gender (finding) [facility] Start: 09-23-2023 [facility] Start: 1995 Sex assigned at Female [facility] Start: 04-13-2022 Sexual orientation Heterosexual (finding) [facility] Goals Date Patient Goal Desired Activity /State Personal health goal Personal health goal Clinical Notes 11-07-2023 to 02-06-2024 Kimberly Barajas CNM - 02/06/2024 11:30 AM Koko Barajas CNM - 01/03/2024 11:30 AM Koko Barajas CNM - 12/07/2023 10:15 AM EDTKimberly Barajas CNM - 11/07/2023 10:30 AM EDT Note Date & Type Note Facility 02-06-2024 History of Presen t illness Narrative Subjective No chief complaint on file. Keyla Ng is a 28 y.o. at 21w3d with a working estimated date of delivery of 06/15/2024, by Last Menstrual Period who presents for a routine visit. She denies vaginal bleeding, leakage of fluid, decreased movements, or contractions. OB History Para Term AB Living 2 1 1 1 SAB IAB Ectopic Multiple Live Births 1 # Outcome Date GA Lbr Dyllan/2nd Weight Sex Type Anes PTL Lv 2 Current 1 Term 04/14/22 38w0d 12:24 / 02:12 6 lb 14.6 oz M Vag-Spont EPI N KYLE Comments: induced Complications: Abnormal heart beat first noted during labor or delivery in liveborn , Pre-eclampsia Her is complicated by: The following portions of the chart were reviewed this encounter and updated as appropriate: Objective Physical Exam weight: 190 lb Expected Total Weight Gain: 15 lb-25 lb Pregravid BMI: 29.10 BP: 118/80 Urine protein-negative Urine glucose-negative Labs: reviewed Imaging Assessment/Plan Diagnoses and all orders for this visit: Encounter for supervision of other normal , second trimester Continue vitamin. Labs reviewed. Rhogam GTT . Follow up in 2 weeks for a routine visit. documented in this encounter [facility] 01-03-2024 History of Presen t illness Narrative Subjective No chief complaint on file. Keyla Ng is a 28 y.o. at 16w4d with a working estimated date of delivery of 06/15/2024, by Last Menstrual Period who presents for a routine visit. She denies vaginal bleeding, leakage of fluid, decreased movements, or contractions. OB History Para Term AB Living 2 1 1 1 SAB IAB Ectopic Multiple Live Births 1 # Outcome Date GA Lbr Dyllan/2nd Weight Sex Type Anes PTL Lv 2 Current 1 Term 04/14/22 38w0d 12:24 / 02:12 6 lb 14.6 oz M Vag-Spont EPI N KYLE Comments: induced Complications: Abnormal heart beat first noted during labor or delivery in liveborn infant, Pre-eclampsia Her is complicated by: The following portions of the chart were reviewed this encounter and updated as appropriate: Objective Physical Exam weight: 184 lb Expected Total Weight Gain: 15 lb-25 lb Pregravid BMI: 29.10 BP: 120/80 Urine protein-negative Urine glucose-negative Labs: reviewed Imaging Assessment/Plan Diagnoses and all orders for this visit: examination or test, positive result - Ambulatory referral to Obstetrics / Gynecology Encounter for supervision of other normal , first trimester - Ambulatory referral to Obstetrics / Gynecology related condition in second trimester - US OB follow up transabdominal approach; Future Continue vitamin. Labs reviewed Rhogam GTT at 28 weeks Follow up in 4 weeks for a routine visit. documented in this encounter [facility] 12-07-2023 History of Presen t illness Narrative Subjective No chief complaint on file. Keyla Ng is a 28 y.o. at 12w5d with a working estimated date of delivery of 06/15/2024, by Last Menstrual Period who presents for a routine visit. She denies vaginal bleeding, leakage of fluid, decreased movements, and contractions. OB History Para Term AB Living 2 1 1 1 SAB IAB Ectopic Multiple Live Births 1 # Outcome Date GA Lbr Dyllan/2nd Weight Sex Type Anes PTL Lv 2 Current 1 Term 04/14/22 38w0d 12:24 / 02:12 6 lb 14.6 oz M Vag-Spont EPI N KYLE Comments: induced Complications: Abnormal heart beat first noted during labor or delivery in liveborn , Pre-eclampsia Her is complicated by: The following portions of the chart were reviewed this encounter and updated as appropriate: Objective Physical Exam weight: 187 lb, Pregravid BMI: 29.10 Expected Total Weight Gain: 15 lb-25 lb Labs Imaging Assessment/Plan Diagnoses and all orders for this visit: Encounter for supervision of other normal , second trimester Urine protein-negative Urine glucose-negative Continue vitamin. Labs reviewed. Order placed for anatomy scan at 20 weeks. Follow up in 4 weeks for a routine visit. documented in this encounter [facility] 11-14-2023 Miscellaneous Notes Formattin g of this note might be different from the original. Patient called to cancel her initial ob with provider appointment for next week. Per the patient since my phone call appointment I have been thinking & with the changes I will be seeing [facility] for this . Appointment on 11/23/23 has been cancelled. NOTED documented in this encounter [facility] 11-14-2023 Telephone encount er Note Patient called to cancel her initial ob with provider appointment for next week. Per the patient since my phone call appointment I have been thinking & with the changes I will be seeing [facility] for this . Appointment on 11/23/23 has been cancelled. [facility] 11-14-2023 Telephone encount er Note NOTED [facility] 11-07-2023 History of Presen t illness Narrative penSubjective Keyla Ng is a 28 y.o. at 8w3d with a working estimated date of delivery of 06/15/2024, by Last Menstrual Period who presents for an initial visit. This is planned. Patient Care Team: Rosy Harris MD as PCP - General (Family Medicine) Adenike Atkins NP (Family Medicine) OB History Para Term AB Living 2 1 1 1 SAB IAB Ectopic Multiple Live Births 1 # Outcome Date GA Lbr Dyllan/2nd Weight Sex Type Anes PTL Lv 2 Current 1 Term 04/14/22 38w0d 12:24 / 02:12 6 lb 14.6 oz M Vag-Spont EPI N KYLE Comments: induced Complications: Abnormal heart beat first noted during labor or delivery in liveborn infant, Pre-eclampsia Her is complicated by: Patient referred by Gynecology History Last Pap 11/07/2018 The following portions of the chart were reviewed this encounter and updated as appropriate: Review of Systems Negative except Objective Physical Exam weight: 183 lb Expected Total Weight Gain: 15 lb-25 lb Pregravid BMI: 29.10 Urine protein-negative Urine glucose-negative Labs Assessment/Plan Blue education folder given. Patient educated on safe medication list. Genetic testing information given. Discussed the do's and don'ts in the blue folder. We discussed labs and what we draw and what we are testing for. Patient is also informed that we do a urine drug test. Patient also given office phone number and [facility] number to call in case of an emergency or after hours needs. PVU and all questions answered. We did discuss place of delivery. Patient should plan to go to [facility] for all services unless an emergency and they need to go to the closest ER. 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 another facility but I did explain I am now at [place] 100% of the time and would like to do all deliveries there. documented in this encounter [facility] Evaluation note Diagnosis Encounter for supervision of other normal , second trimester- Primary documented in this encounter [facility]* Diagnosis examination or test, positive result Encounter for supervision of other normal , first trimester related condition in second trimester documented in this encounter [facility]* Diagnosis Encounter for supervision of other normal , first trimester- Primary Amenorrhea Absence of menstruation examination or test, positive result Group B streptococcal infection Streptococcus infection in conditions classified elsewhere and of unspecified site, group B documented in this encounter [facility] HealthcareInstructionsNot on filedocumented in this encounterProWadsworth[facility] Narrative* Maternity Services (Routine) - Closed Specialty Diagnoses / Procedures Referred By Sarah lind Referred To Contact Obstetrics and Gynecology Diagnoses examination or test, positive result Encounter for supervision of other normal , first trimester Procedures MO OFFICE/OUTPATIENT [facility] Kimberly Barajas CNM [address] [place] [address] Phone: tel: fax: Kimberly Barajas CNM [address] [place] [address] Phone: tel: fax: Referral ID Status Reason Start Date Expiration Date V isits Requested Visits Authorized [id number] Closed Specialty Services Required 01/01/2024 06/29/2024 1 1 [facility] Summary Purpose Family History No Family History Records FoundNo Family History Records FoundNo Family History Records FoundNo Family History Records Found Advance Directives No Advanced Directives Records Found Date Activated Date Inactivated Comments 04/13/2022 11:20 AM 04/16/2022 4:24 PM Instructions * Patient Instructions - Cathi Serrano PA-C - 11/28/2016 6:09 PM EDT Hemorrhoids: Care Instructions Your Care Instructions Hemorrhoids are enlarged veins that develop in the anal canal. Bleeding during bowel movements, itching, swelling, and rectal pain are the most common symptoms. They can be uncomfortable at times, but hemorrhoids rarely are a serious problem. You can treat most hemorrhoids with simple changes to your diet and bowel habits. These changes include eating more fiber and not straining to pass stools. Most hemorrhoids do not need surgery or other treatment unless they are very large and painful or bleed a lot. Follow-up care is a alcala part of your treatment and safety. Be sure to make and go to all appointments, and call your doctor if you are having problems. It s also a good idea to know your test resultsand keep a list of the medicines you take. How can you care for yourself at home? Sit in a few inches of warm water (sitz bath) 3 times a day and after bowel movements. The warm water helps with pain and itching. Put ice on your anal area several times a day for 10 minutes at a time. Put a thin cloth between the ice and your skin. Follow this by placing a warm, wet towel on the area for another 10 to 20 minutes. Take pain medicines exactly as directed. If the doctor gave you a prescription medicine for pain, take it as prescribed. If you are not taking a prescription pain medicine, ask your doctor if you can take an teks-lxp-znmrifb medicine. Keep the anal area clean, but be gentle. Use water and a fragrance-free soap, such as Ivory, or usebaby wipes or medicated pads, such as Tucks. Wear cotton underwear and loose clothing to decrease moisture in the anal area. Eat more fiber. Include foods such as whole-grain breads and cereals, raw vegetables, raw and driedfruits, and beans. Drink plenty of fluids, enough so that your urine is light yellow or clear like water. If you have kidney, heart, or liver disease and have to limit fluids, talk with your doctor before you increase the amount of fluids you drink. Use a stool softener that contains bran or psyllium. You can save money by buying bran or psyllium (available in bulk at most health food stores) and sprinkling it on foods or stirring it into fruit juice. Or you can use a product such as Metamucil or Hydrocil. Practice healthy bowel habits. Go to the bathroom as soon as you have the urge. Avoid straining to pass stools. Relax and give yourself time to let things happen naturally. Do not hold your breath while passing stools. Do not read while sitting on the toilet. Get off the toilet as soon as you have finished. Take your medicines exactly as prescribed. Call your doctor if you think you are having a problem with your medicine. When should you call for help? Call 911 anytime you think you may need emergency care. For example, call if: You pass maroon or very bloody stools. Call your doctor now or seek immediate medical care if: You have increased pain. You have increased bleeding. Watch closely for changes in your health, and be sure to contact your doctor if: Your symptoms have not improved after 3 or 4 days. Where can you learn more? Log into your personal health record on [email or web address] and enter F228 in the Education box to learn more about Hemorrhoids: Care Instructions. Current as of: September 15, 2015 Content Version: 11.2 7680-7004 [employer]. Care instructions adapted under license by your healthcare professional. If you have questions about a medical condition or this instruction, always ask your healthcare professional. [employer] disclaims any warranty or liability for your use of this information. in this encounter History of Present Illness * Cathi Serrano PA-C - 11/28/2016 5:59 PM EDT Formatting of this note may be different from the original. PATIENT NAME: Keyla Nicole [facility] [address] [place], [place] [id number] : 1995 DATE OF VISIT: 11/28/2016 #: [id number] PROVIDER: Cathi Serrano PA-C Chief Complaint Patient presents with Hemorrhoids history of hemorroids, new hemorroid is bigger than normal out of rectum with bleeding and hard to sit very painful, onset 1 week ago SUBJECTIVE 21 y.o. female presents Hemorrhoids (history of hemorroids, new hemorroid is bigger than normal outof rectum with bleeding and hard to sit very painful, onset 1 week ago) hx of hemorrhoids several months ago. Was away at [facility] and noted to larger and more painful/tender. Did not have any of her topical medications with her. Rectal Bleeding The current episode started 2 days ago. The onset was sudden. The problem occurs occasionally. The problem has been unchanged. The pain is mild. The stool is described as hard. There was no prior successful therapy. Associated symptoms include hemorrhoids. Her past medical history does not include abdominal surgery, inflammatory bowel disease, recent abdominal injury, recent antibiotic use or recent change in diet. MEDICAL ISSUES Past Medical History: Diagnosis Date Hemorrhoid There is no problem list on file for this patient. SOCIAL HISTORY Social History Social History Marital status: Single Spouse name: N/A Number of children: N/A Years of education: N/A Occupational History Not on file. Social History Main Topics Smoking status: Not on file Smokeless tobacco: Not on file Alcohol use Not on file Drug use: Not on file Sexual activity: Not on file Other Topics Concern Not on file Social History Narrative No narrative on file FAMILY HISTORY No family history on file. REVIEW OF SYSTEMS Review of Systems Gastrointestinal: Positive for hemorrhoids. MEDICATIONS PRIOR TO VISIT No current outpatient prescriptions on file prior to visit. No current facility-administered medications on file prior to visit. ALLERGIES/INTOLERANCES Allergies Allergen Reactions Azithromycin GI Intolerance OBJECTIVE BP (!) 143/93 Pulse 76 Temp 99.2 F (37.3 C) (Oral) Resp 16 Ht 5' 6 Wt 76.7 kg (169 lb) LMP 10/29/2016 SpO2 98% BMI 27.28 kg/m2 Physical Exam Constitutional: She is oriented to person, place, and time. She appears well- developed and well-nourished. No distress. HENT: Head: Normocephalic and atraumatic. Genitourinary: Rectal exam shows external hemorrhoid. Rectal exam shows no fissure, no mass and no tenderness. Neurological: She is alert and oriented to person, place, and time. Skin: Skin is warm and dry. She is not diaphoretic. Psychiatric: She has a normal mood and affect. Her behavior is normal. Judgment and thought contentnormal. Nursing note and vitals reviewed. PROCEDURE Procedures Results No results found for this or any previous visit (from the past 168 hour(s)). ASSESSMENT/PLAN (expressed as patient instructions): SNOMED CT(R) 1. External hemorrhoid EXTERNAL HEMORRHOIDS No Follow-up on file. ADDITIONAL CLINICAL COMMENTS Topical treatment Sitz baths Soft BM's ORDERS PLACED THIS VISIT No orders of the defined types were placed in this encounter. MEDICATION LIST AT END OF VISIT Current Outpatient Prescriptions Medication Sig Dispense Refill hydrocortisone (ANUSOL-HC) 2.5 % rectal cream Insert into the rectum 2 (two) times a day. 30 g 0 levonorgestrel-ethinyl estradiol (AVIANE,ALESSE,LESSINA) 0.1-20 mg-mcg per tablet Take 1 tablet by mouth daily. No current facility-administered medications for this visit. in this encounter Assessments Diagnosis External hemorrhoid - Primar y External hemorrhoids without mention of complication Additional Source Comments INFORMATION SOURCE (unrecogn ized section and content) DATE CREATED AUTHOR 08/01/2017 [facility] DATE CREATED AUTHOR AUTHOR'S ORGANIZ ATION 01/31/2021 [facility] dical Specialist DATE CREATED AUTHOR AUTHOR'S ORGANIZ ATION 11/02/2023 [facility] DATE CREATED AUTHOR AUTHOR'S ORGANIZ ATION 02/17/2024 [facility] dical Specialists EPIC Reason for Visit (unrecogniz ed section and content) Reason Comments Hemorrhoids history of hemorroid s, new hemorroid is bigger than normal out of rectum with bleeding and hard to sit very painful, onset 1 week ago Reason Comments Initial Visit Care Teams (unrecognized sec tion and content) Associate Art Director Relationship Specialty Start Date End Date Rosy Harris MD [address] [place], [place] [id number] PCP - General Family Medicine 05/29/23 Adenike Atkins NP [address] [place], [place] [id number] Family Medicine 05/29/23 Associate Art Director Relationship Specialty Start Date End Date Lynette Hayes DO [address] [place], [place] [id number] PCP - General Family Medicine 01/24/22 Associate Art Director Relationship Specialty Start Date End Date Rosy Harris MD [address] [place] [address] PCP - General Family Medicine 05/29/23 [employer] TECHNICAL LEAD [address] [place] [address] Family Medicine 05/29/23 Associate Art Director Relationship Specialty Start Date End Date Rosy Harris MD [address] [place] [address] PCP - General Family Medicine 05/29/23 Adenike Atkins TECHNICAL LEAD [address] [place] [address] Family Medicine 05/29/23 Associate Art Director Relationship Specialty Start Date End Date Rosy Harris MD [address] [place] [address] PCP - General Family Medicine 05/29/23 Adenike Atkins NP [address] [place] [address] Family Medicine 05/29/23 Associate Art Director Relationship Specialty Start Date End Date Rosy Harris MD [address] [place] [address] PCP - General Family Medicine 05/29/23 Adenike Atkins TECHNICAL LEAD [address] [place] [address] Family Medicine 05/29/23 FOR RECORDS PERTAINING TO PATIENTS WHO ARE OR HAVE BEEN ENROLLED IN A CHEMICAL DEPENDENCY/SUBSTANCEABUSE PROGRAM, SOME INFORMATION MAY BE OMITTED. This clinical summary was aggregated from multiple sources. Caution should be exercised in using it in the provision of clinical care. This summary normalizes information from multiple sources, and as a consequence, information in this document may materially change the coding, format and clinical context of patient data. In addition, data may be omitted in some cases. CLINICAL DECISIONS SHOULD BE BASED ON THE PRIMARY CLINICAL RECORDS. [facility]. provides no warranty or guarantee of the accuracy or completeness of information in this document.
[2024-03-05 15:20] VITALS: BP 130/80; PULSE 133
[2024-03-05 15:37] LABS: Basophils Percent Auto 0.2 % (0.2-2.0); Eosinophils Absolute Auto 0.1 10^3/uL (0.0-0.7); Eosinophils Percent Auto 0.8 % (0.9-7.0); Hematocrit 35.1 % (36.0-48.0); Hemoglobin 11.9 g/dL (12.0-16.0); Immature Granulocytes Abs Auto 0.07 10^3/uL (0.00-0.03); Immature Granulocytes Pct Auto 0.7 % (0.0-0.5); Lymphocytes Absolute Auto 1.5 10^3/uL (1.2-3.8); Lymphocytes Percent Auto 13.9 % (20.5-60.0); Mean Corpuscular HGB Conc 33.9 g/dL (29.9-35.2); Mean Corpuscular Hemoglobin 30.1 pg (26.7-34.0); Mean Corpuscular Volume 88.9 fL (81.0-99.0); Mean Platelet Volume 9.4 fL (9.5-13.5); Monocytes Absolute Auto 0.6 10^3/uL (0.3-0.8); Monocytes Percent Auto 6.1 % (1.7-12.0); Neutrophils Absolute Auto 8.2 10^3/uL (1.4-6.5); Neutrophils Percent Auto 78.3 % (43.0-75.0); Platelet Count 254 10^3/uL (150-450); Red Blood Count 3.95 10^6/uL (4.20-5.40); Red Cell Distribution Width 12.7 % (11.0-15.0); White Blood Count 10.5 10^3/uL (4.0-11.0)
[2024-03-05 15:56] LABS: Alanine Aminotransferase 12 U/L (14-59); Albumin Globulin Ratio 0.7; Albumin Level 2.9 g/dL (3.4-5.0); Alkaline Phosphatase 69 U/L (46-116); Anion Gap 10.8; Aspartate Amino Transferase 11 U/L (15-37); BUN Creatinine Ratio 13.1; Bilirubin Total 0.2 mg/dL (0.2-1.0); Calcium 8.3 mg/dL (8.5-10.1); Carbon Dioxide 22.8 mmol/L (21.0-32.0); Chloride 105 mmol/L (98-107); Estimated GFR (African America >60 (>=60 mL/min/1.73m^2); Estimated GFR (Non-African Ame >60 (>=60 mL/min/1.73m^2); Globulin 3.9 g/dL; Glucose 98 mg/dL (74-106); Potassium 3.6 mmol/L (3.5-5.1); Sodium 135 mmol/L (136-145); Total Protein 6.8 g/dL (6.4-8.2); Uric Acid 2.8 mg/dL (2.6-6.0)
[2024-03-05 16:07] LABS: Fibrinogen 391 mg/dL (200-400)
[2024-03-05 16:11] LABS: Lactate Dehydrogenase 143 U/L (81-234)
[2024-03-05 16:20] VITALS: BP 119/71; PULSE 102
[2024-03-05 17:20] VITALS: BP 119/71; PULSE 99
== END 2024-03-05 17:50 | disposition home or self-care (01) ==
PROVIDERS: Admitting Provider Midwife; PCP Family Medicine; Visit Provider Midwife
DX: O16.2 Unspecified maternal hypertension, second trimester (principal); Z3A.25 25 weeks gestation of pregnancy
CPT/HCPCS: 36415; 59025; 80053; 83615; 84550; 85025; 85384; G0378; G0379

== ENCOUNTER 2024-03-06 16:13 | Outpatient (REF) | payer OTHER, SELFPAY ==
--- OUTSIDE RECORDS SUMMARY | 2024-03-06 16:24 | XMS_ITS | CCD ---
Author Organization [facility] HUSBANDRY PERSON [facility] Care Team Providers Care Insurance Sales Producer Name Role Phone CATHI SERRANO Unavailable Unav ailable NO, PHYSICIAN Unavailable Unavailable No, Physician Unavailable Unavailable EDUIN DIAZ Attending Unavailable LYNETTE HAYES Referring Unavailable LYNETTE HAYES Primary Care Unavailable Rosy Harris MD Primary Care Provider Pump NURSE ADVISOR, Adenike Unavailable Lynette Hayes DO Primary Care Provider [phone] Rosy Harris MD Primary Care Provider PUMP, ADENIKE Attending Unavailable PUMP, ADENIKE Attending Unavailable PUMP, ADENIKE Attending Unavailable EMANUEL BARAJASERIE Irene Attending Unavailable CJO KIMBERLY L Referring Unavailable FLORO KIMBERLY Irene Attending Unavailable FLORO KIMBERLY L Attending Unavailable FLORO KIMBERLY L Referring Unavailable FLORO KIMBERLY L Attending Unavailable Allergies Allergy Classification Reported Allergen(s) Allergy Type Date of Onset Reaction(s) Facility (16 sources) azithromycin; Translations: [AZITHROMYCIN] Drug Allergy 7 GI Intolerance, Vomiting [facility] Three Repository Medications Current Medications Medication Drug [...] management of women. Internal identifier for Provider [id number] [facility] Interpretation and review of laboratory results Abnormal [facility] Specimen source Nom (Unsp spec) URINE [facility] STATUS FINAL [facility] Laboratory - Drug toxicology on 11-10-2023 6-Zstbaqflhk-9,5-Dimethy l-3,3-Diphenylpyrrolidin e (EDDP) Ql (U) Negative NINF - 100 ng/mL [facility] Amphetamines Ql (U) Negative NINF - 5 00 ng/mL [facility] Barbiturates Ql (U) Negative NINF - 3 00 ng/mL [facility] Benzodiazepines Ql (U) Negative NINF - 100 ng/mL [facility] Benzoylecgonine Ql (U) Negative NINF - 150 ng/mL [facility] Opiates Ql (U) Negative NINF - 100 ng/mL [facility] oxyCODONE Ql (U) Negative NINF - 100 ng/mL [facility] Phencyclidine Ql (U) Negative NINF - 25 ng/mL [facility] Tetrahydrocannabinol Screen method >20 ng/mL Ql (U) Negative NINF - 20 ng/mL [facility] Laboratory - Urinalysison Bacteria LM.HPF (Urine sed) [#/Area] NONE SEEN NONE SEEN /HPF [facility] Epithelial cells.squamous LM.HPF (Urine sed) [#/Area] 0-5 < OR = 5 /HPF [facility] Hyaline casts (Urine sed) [#/Area] NONE SEEN NONE SEEN /LPF [facility] RBC LM.HPF (Urine sed) [#/Area] NONE SEEN < OR = 2 /HPF [facility] WBC LM.HPF (Urine sed) [#/Area] NONE SEEN < OR = 5 /HPF [facility] N. gonorrhoeae DNA YULIYA+probe Ql (Cervical mucus)on 11-10-2023 C. trachomatis rRNA YULIYA+probe Ql (Unsp spec) Not detected NOT DETECTED [facility] N. gonorrhoeae rRNA YULIYA+probe Ql (Unsp spec) Not detected NOT DETECTED [facility] No Panel Informationon 11-09 (ALWAYS MESSAGE) [facility] Comment on above: See Note 1 Note 1 This drug testing is for medical treatment only. Analysis was performed as non-forensic testing and these results should be used only by healthcare providers to render diagnosis or treatment, or to monitor progress of medical conditions. For assistance with interpreting these drug results, please contact a [facility] Toxicology Specialist: [phone] ( [phone] M-F, 8am-6pm EST. The analytical perfo rmance characteristics of this assay, when used to test SurePath(TM) specimens have been determined by [facility]. The modifications have not been cleared or approved by the FDA. This assay has been validated pursuant to the CLIA regulations and is used for clinical purposes. For additional information, please refer to https://education.Reffpedia/faq/NPQ073 (This link is being provided for information/ educational purposes only.) Performing Organization Information Site ID: QPT Name: [facility] Address: [address] [place] [address], [address] [place] [phone] Director: Filemon Chadwick MD [facility] CBC panel Auto (Bld)on 11-07 Erythrocyte distribution width (RBC) [Ratio] 12.8 % 11.0 - 15.0 % [facility] Hematocrit (Bld) [Volume fraction] 42.4 % 35.0 - 45.0 % [facility] Hemoglobin (Bld) [Mass/Vol] 14.2 g/dL 11.7 - 15.5 g/dL [facility] MCH (RBC) [Entitic mass] 30 pg 27. 0 - 33.0 pg [facility] MCHC (RBC) [Mass/Vol] 33.5 g/dL 32.0 - 36.0 g/dL [facility] Comment on above: For adults, a slight decrease in the calculated MCHC value (in the range of 30 to 32 g/dL) is most likely not clinically significant; however, it should be interpreted with caution in correlation with other red cell parameters and the patient's clinical condition. MCV (RBC) [Entitic vol] 89.5 fL 80.0 - 100.0 fL [facility] Platelet mean volume (Bld) [Entitic vol] 9.2 fL 7.5 - 12.5 fL [facility] Platelets (Bld) [#/Vol] 269 10*3/uL [facility] RBC (Bld) [#/Vol] 4.74 10*6/uL [facility] WBC (Bld) [#/Vol] 7.6 10*3/uL [facility] Laboratory - Blood bankon ABO group Nom (Bld) A [facility] Blood group antibody screen Ql Detected [facility] Comment on above: Reference range No antibodies detected This assay is a screening test for the detection of red blood cell antibodies. The test is not to be used for pretransfusion screening or for the medical management of an alloimmunized . Rh Nom (Bld) Positive [facility] Comment on above: For additional information, please refer to http://Peregrine Diamonds.Box Jump/faq/JXQ754 (This link is being provided for informational/ educational purposes only.) Laboratory - Chemistry and C hemistry - challengeon 11-08-2023 TSH Qn 1.09 m[IU]/L mIU/L [facility] Comment on above: Reference Range > or = 20 Years 0.40-4.50 Ranges First trimester 0.26-2.66 Second trimester 0.55-2.73 Third trimester 0.43-2.91 Laboratory - Hematology and Cell countson 11-08-2023 HbA1c (Bld) [Mass fraction] 5 % [facility] Comment on above: For the purpose of s creening for the presence of diabetes: <5.7% Consistent with the absence of diabetes 5.7-6.4% Consistent with increased risk for diabetes (prediabetes) > or =6.5% Consistent with diabetes This assay result is consistent with a decreased risk of diabetes. Currently, no consensus exists regarding use of hemoglobin A1c for diagnosis of diabetes in children. According to [place] Diabetes Association (ADA) guidelines, hemoglobin A1c <7.0% represents optimal control in non- diabetic patients. Different metrics may apply to specific patient populations. Standards of Medical Care in Diabetes(ADA). Laboratory - Microbiology an d Antimicrobial susceptibilityon 11-08-2023 HBV surface Ag IA Ql Non-Reactive NON-REACTIVE [facility] Comment on above: For additional information, please refer to http://Pere[employer]s.Reffpedia/faq/DTD233 (This link is being provided for informational/ educational purposes only.) HCV Ab IA Ql Non-Reactive NON-REACTIVE [facility] Comment on above: HCV antibody was non-reactive. There is no laboratory evidence of HCV infection. In most cases, no further action is required. However, if recent HCV exposure is suspected, a test for HCV RNA (test code 51612) is suggested. For additional information please refer to http://education.Reffpedia/faq/UPJ08p9 (This link is being provided for informational/ educational purposes only.) HIV 1+2 Ab+HIV1 p24 Ag IA Ql Non-Reactive NON-REACTIVE [facility] Comment on above: HIV-1 antigen and HI [...] purpose. For additional information please refer to http://education.Reffpedia/faq/HON245 (This link is being provided for informational/ educational purposes only.) The performance of this assay has not been clinically validated in patients less than 2 years old. Reagin Ab RPR Ql (S) Non-Reactive NON-REACTIVE [facility] Rubella virus IgG Qn (S) 1.68 [IU]/mL Index [facility] Comment on above: Index Interpretation ----- <0.90 Not consistent with immunity 0.90-0.99 Equivocal > or = 1.00 Consistent with immunity The presence of rubella IgG antibody suggests immunization or past or current infection with rubella virus. No Panel Informationon 11-07 MULTIPLE COLLECTION TIMES FOR SAME TEST TYPE. [employer] Organization Information Site ID: QPT Name: [facility] Address: [address] [place] [address], [address] [place] [phone] Director: Filemon Chadwick MD [facility] HCG ( test) Ql (U)o n 11-07-2023 Interpretation and review of laboratory results Abnormal [facility] Preg Test, Ur Positive [facility] US OB < 14 WEEKS [...] Basophils (Bld) [#/Vol] 0.03 10*3/uL Normal 0.00-0.[address] [facility] Specialist Comment on above: Performed By: #### C BCAD, LIPD, TSH reflex FT4, CMP #### [facility] [address] [place], [place] [id number] Basophils/100 WBC (Bld) 0.3 % Normal [facility] Comment on above: Performed By: #### C BCAD, LIPD, TSH reflex FT4, CMP #### [facility] [address] [place], [place] [id number] Eosinophils (Bld) [#/Vol] 0.07 10*3/uL Normal 0.02-0.[address] [facility] Specialist Comment on above: Performed By: #### C BCAD, LIPD, TSH reflex FT4, CMP #### [facility] [address] [place], [place] [id number] Eosinophils/100 WBC (Bld) 0.6 % Normal [facility] Comment on above: Performed By: #### C BCAD, LIPD, TSH reflex FT4, CMP #### [facility] [address] [place], [place] [id number] Erythrocyte distribution width (RBC) [Ratio] 12.4 % Normal 11.0-15.0 [facility] Comment on above: Performed By: #### C BCAD, LIPD, TSH reflex FT4, CMP #### [facility] [address], [place] [id number] Hematocrit (Bld) [Volume fraction] 37.9 % Normal 35.0-47.[address] [facility] Specialist Comment on above: Performed By: #### C BCAD, LIPD, TSH reflex FT4, CMP #### [facility] [address] [place], [place] [id number] Hemoglobin (Bld) [Mass/Vol] 12.6 g/dL Normal 11.6-15.[address] [facility] Specialist Comment on above: Performed By: #### C BCAD, LIPD, TSH reflex FT4, CMP #### [facility] [address] [place], [place] [id number] Lymphocytes (Bld) [#/Vol] 1.5 10*3/uL Normal 0.9-3.[address] [facility] Specialist Comment on above: Performed By: #### C BCAD, LIPD, TSH reflex FT4, CMP #### [facility] [address], [place] [id number] Lymphocytes/100 WBC (Bld) 12.4 % Normal [facility] Specialist Comment on above: Performed By: #### C BCAD, LIPD, TSH reflex FT4, CMP #### [facility] [address] [place], [place] [id number] MCH (RBC) [Entitic mass] 29.1 pg Normal 27.0-33.[address] [facility] Specialist Comment on above: Performed By: #### C BCAD, LIPD, TSH reflex FT4, CMP #### [facility] [address], [place] [id number] MCHC (RBC) [Mass/Vol] 33.2 g/dL Normal 32.0-36.0 [facility] Comment on above: Performed By: #### C BCAD, LIPD, TSH reflex FT4, CMP #### [facility] [address], [place] [id number] MCV (RBC) [Entitic vol] 88 fL Normal 80-100 [facility] Specialist Comment on above: Performed By: #### C BCAD, LIPD, TSH reflex FT4, CMP #### [facility] [address], [place] [id number] Monocytes (Bld) [#/Vol] 0.9 10*3/uL Normal 0.2-0.[address] [facility] Specialist Comment on above: Performed By: #### C BCAD, LIPD, TSH reflex FT4, CMP #### [facility] [address], [place] [id number] Monocytes/100 WBC (Bld) 7.5 % Normal [facility] Specialist Comment on above: Performed By: #### C BCAD, LIPD, TSH reflex FT4, CMP #### [facility] [address], [place] [id number] Neutrophils (Bld) [#/Vol] 9.4 10*3/uL High 1.5-7.[address] [facility] Specialist Comment on above: Performed By: #### C BCAD, LIPD, TSH reflex FT4, CMP #### [facility] [address], [place] [id number] Neutrophils/100 WBC (Bld) 78.7 % Normal [facility] Specialist Comment on above: Performed By: #### C BCAD, LIPD, TSH reflex FT4, CMP #### [facility] [address], [place] [id number] Platelet mean volume (Bld) [Entitic vol] 9.80 fL Normal 7.50-12.50 [facility] Comment on above: Performed By: #### C BCAD, LIPD, TSH reflex FT4, CMP #### [facility] [address], [place] [id number] Platelets (Bld) [#/Vol] 308 10*3/uL Normal 140-[address] [facility] Specialist Comment on above: Performed By: #### C BCAD, LIPD, TSH reflex FT4, CMP #### [facility] [address], [place] [id number] RBC (Bld) [#/Vol] 4.33 10*6/uL Normal 3.90-5.20 [facility] Specialist Comment on above: Performed By: #### C BCAD, LIPD, TSH reflex FT4, CMP #### [facility] [address], [place] [id number] RDW-SD 39.6 fL Normal 37.0-50.0 [facility] Comment on above: Performed By: #### C BCAD, LIPD, TSH reflex FT4, CMP #### [facility] [address], [place] [id number] WBC (Bld) [#/Vol] 11.9 10*3/uL High 3.8-11.0 [facility] Comment on above: Performed By: #### C BCAD, LIPD, TSH reflex FT4, CMP #### [facility] [address], [place] [id number] Comprehensive Metabolic Pane [facility] 01-27-2021 Albumin [Mass/Vol] 4.9 g/dL Normal 3.6-5.1 [facility] Comment on above: Performed By: #### C BCAD, LIPD, TSH reflex FT4, CMP #### [facility] [address], [place] [id number] Albumin/Globulin [Mass ratio] 1.9 {ratio} Normal 1.0-2.[address] [facility] Specialist Comment on above: Performed By: #### C BCAD, LIPD, TSH reflex FT4, CMP #### [facility] [address], [place] [id number] ALP [Catalytic activity/Vol] 73 U/L Normal 35-[address] [facility] Specialist Comment on above: Performed By: #### C BCAD, LIPD, TSH reflex FT4, CMP #### [facility] [address], [place] [id number] ALT [Catalytic activity/Vol] 9 U/L Normal 6-[address] [facility] Specialist Comment on above: Result Comment: 01/06 Female reference range changed. Performed By: #### C BCAD, LIPD, TSH reflex FT4, CMP #### [facility] [address], [place] [id number] Anion gap [Moles/Vol] 16 mmol/L Normal 12-20 [facility] Comment on above: Result Comment: Effe ctive 02/11/2019 reference range changed. Performed By: #### C BCAD, LIPD, TSH reflex FT4, CMP #### [facility] [address], [place] [id number] AST [Catalytic activity/Vol] 14 U/L Normal 9-34 [facility] Comment on above: Performed By: #### C BCAD, LIPD, TSH reflex FT4, CMP #### [facility] [address], [place] [id number] Bilirubin [Mass/Vol] 0.90 mg/dL Normal 0.30-1.20 [facility] Comment on above: Performed By: #### C BCAD, LIPD, TSH reflex FT4, CMP #### [facility] [address], [place] [id number] BUN/CREA 18 Ratio Normal 6-22 [facility] Comment on above: Performed By: #### C BCAD, LIPD, TSH reflex FT4, CMP #### [facility] [address], [place] [id number] Calcium [Mass/Vol] 10.1 mg/dL Normal 8.6-10.2 [facility] Comment on above: Performed By: #### C BCAD, LIPD, TSH reflex FT4, CMP #### [facility] [address], [place] [id number] Chloride [Moles/Vol] 105 mmol/L Normal 98-107 [facility] Comment on above: Performed By: #### C BCAD, LIPD, TSH reflex FT4, CMP #### [facility] [address], [place] [id number] CO2 [Moles/Vol] 24 mmol/L Normal 20-31 [facility] Comment on above: Performed By: #### C BCAD, LIPD, TSH reflex FT4, CMP #### [facility] [address], [place] [id number] Creatinine [Mass/Vol] 0.6 mg/dL Normal 0.6-1.4 [facility] Comment on above: Performed By: #### C BCAD, LIPD, TSH reflex FT4, CMP #### [facility] [address], [place] [id number] eGFRAA 149 mL/min/1.73m2 Normal >60 [facility] Specialist Comment on above: Performed By: #### C BCAD, LIPD, TSH reflex FT4, CMP #### [facility] [address], [place] [id number] eGFRNAA 123 mL/min/1.73m2 Normal >60 [facility] Specialist Comment on above: Performed By: #### C BCAD, LIPD, TSH reflex FT4, CMP #### [facility] [address], [place] [id number] Globulin (S) [Mass/Vol] 2.6 g/dL Normal 1.9-3.7 [facility] Comment on above: Performed By: #### C BCAD, LIPD, TSH reflex FT4, CMP #### [facility] [address], [place] [id number] Glucose [Mass/Vol] 88 mg/dL Normal 65-99 [employer] Comment on above: Result Comment: For FASTING Glucose --- ADA reference ranges: Normal 65-99 mg/dl Prediabetes 100-125 Diabetes >/= 126 Performed By: #### C BCAD, LIPD, TSH reflex FT4, CMP #### [facility] [address], [place] [id number] Potassium [Moles/Vol] 4.1 mmol/L Normal 3.5-5.[address] [facility] Specialist Comment on above: Performed By: #### C BCAD, LIPD, TSH reflex FT4, CMP #### [facility] [address], [place] [id number] Protein [Mass/Vol] 7.5 g/dL Normal 6.1-8.1 [employer] Comment on above: Performed By: #### C BCAD, LIPD, TSH reflex FT4, CMP #### [facility] [address], [place] [id number] Sodium [Moles/Vol] 140 mmol/L Normal 135-146 [employer] Comment on above: Performed By: #### C BCAD, LIPD, TSH reflex FT4, CMP #### [facility] [address], [place] [id number] Urea nitrogen [Mass/Vol] 11 mg/dL Normal 7-[address] [facility] Specialist Comment on above: Performed By: #### C BCAD, LIPD, TSH reflex FT4, CMP #### [facility] [address], [place] [id number] Lipid Panelon 01-27-2021 Cholesterol [Mass/Vol] 152 mg/dL Normal 125-200 [facility] on above: Result Comment: Low risk < 200mg/dL Borderline risk 201-239 mg/dl High risk > or equal to 240 Performed By: #### C BCAD, LIPD, TSH reflex FT4, CMP #### [facility] [address], [place] [id number] Cholesterol in HDL [Mass/Vol] 50 mg/dL Normal >[address] [facility] Specialist Comment on above: Result Comment: High Cardiovascular Risk HDL <40 mg/dL Low Cardiovascular Risk HDL > or equal to 60 mg/dl Performed By: #### C BCAD, LIPD, TSH reflex FT4, CMP #### [facility] [address], [place] [id number] Cholesterol in LDL [Mass/Vol] 91 mg/dL Normal [facility] Comment on above: Result Comment: LDL ATP III CLASSIFICATION LDL less than 100 mg/dl Optimal LDL 100-129 mg/dl Near or above optimal LDL 130-159 Borderline high LDL 160-189 High LDL greater than 189 mg/dl Very High Performed By: #### C BCAD, LIPD, TSH reflex FT4, CMP #### [facility] [address], [place] [id number] Cholesterol in VLDL [Mass/Vol] 11 mg/dL Normal [facility] Specialist Comment on above: Performed By: #### C BCAD, LIPD, TSH reflex FT4, CMP #### [facility] [address], [place] [id number] Cholesterol.total/Choles terol in HDL [Mass ratio] 3 {ratio} Normal [facility] Specialist Comment on above: Performed By: #### C BCAD, LIPD, TSH reflex FT4, CMP #### [facility] [address], [place] [id number] Triglyceride [Mass/Vol] 55 mg/dL Normal 30-150 [facility] [employer] Comment on above: Result Comment: TRIG ATPIII CLASSIFICATIONS TRIG less than 150 mg/dl Normal TRIG 150-199 mg/dl Borderline High TRIG 200-500 mg/dl High TRIG greather than 500 mg/dl Very High Performed By: #### C BCAD, LIPD, TSH reflex FT4, CMP #### [facility] [address], [place] [id number] Q - CULTURE,URINE,ROUTINEon 01-27-2021 CULTURE, URINE, ROUTINE SEE NOTE Normal [facility] [employer] Comment on above: Order Comment: [facility] Testing performed at: [email or web address], [address] [place] [address], [address] [place] [address], [phone], [employer]: Filemon Chadwick MD [facility] Collection Date/Time: [facility] Results Received Date/Time: [facility] Reported Date/Time: Result Comment: CULT URE, URINE, ROUTINE Micro Number: [id number] Test Status: Final Specimen Source: Urine Specimen Quality: Adequate Result: Growth of mixed jairo was isolated, suggesting probable contamination. No further testing will be performed. If clinically indicated, recollection using a method to minimize contamination, with prompt transfer to Urine Culture Transport Tube, is recommended. Performed By: #### [id number] #### [facility] Default [address] [place] [address] TSH w/ Reflex to Free T4on 1 03-30-2020 TSH 0.733 uIU/mL Normal 0.400-4.500 [facility] [employer] [employer] Comment on above: Performed By: #### C BCAD, LIPD, TSH reflex FT4, CMP #### [facility] [address], [place] [id number] Vital Signs Date Time Vital Sign Value Performing Clinician Facility 02-06-2024 11:29-0500 Body mass index (BMI) [Ratio] 30.21 kg/m2 Kimberly Barajas CNM Work Phone: [facility] 02-06-2024 11:29-0500 Body weight 86.18 kg Kimberly Floro CNM Work Phone: [facility] 02-06-2024 11:29-0500 Diastolic blood pressure 80 mm[Hg] Kimberly Floro CNM Work Phone: [facility] 02-06-2024 11:29-0500 Systolic blood pressure 118 mm[Hg] Kimberly Floro CNM Work Phone: [facility] 01-03-2024 11:25-0500 Body mass index (BMI) [Ratio] 29.25 kg/m2 Kimberly Floro CNM Work Phone: [facility] 01-03-2024 11:25-0500 Body weight 83.46 kg Kimberly Floro CNM Work Phone: [facility] 01-03-2024 11:25-0500 Diastolic blood pressure 80 mm[Hg] Kimberly Floro CNM Work Phone: [facility] 01-03-2024 11:25-0500 Systolic blood pressure 120 mm[Hg] Kimberly Floro CNM Work Phone: [facility] 12-07-2023 10:28-0400 Body mass index (BMI) [Ratio] 29.73 kg/m2 Kimberly Floro CNM Work Phone: [facility] 12-07-2023 10:28-0400 Body weight 84.82 kg Kimberly Floro CNM Work Phone: [facility] 11-07-2023 10:28-0400 Body mass index (BMI) [Ratio] 29.09 kg/m2 Kimberly Floro CNM Work Phone: [facility] 11-07-2023 10:28-0400 Body weight 83.01 kg Kimberly Floro CNM Work Phone: [facility] 11-28-2016 17:31-0400 BMI (Body Mass Index) 27.28 kg/m2 Cathi Serrano [facility] Work Phone: 11-28-2016 17:31-0400 Body Temperature 99.19 [degF] Cathi Serrano [facility] Work Phone: 11-28-2016 17:31-0400 BP Diastolic 93 mm[Hg] Cathi Serrano [facility] Work Phone: 11-28-2016 17:31-0400 BP Systolic 143 mm[Hg] Cathi Serrano [facility] Work Phone: 11-28-2016 17:31-0400 Height 167.6 cm Cathi Serrano [facility] Work Phone: 11-28-2016 17:31-0400 Pulse (Heart Rate) 76 /min Cathi Serrano [facility] Work Phone: 11-28-2016 17:31-0400 Pulse Oximetry 98 % Cathi Serrano [facility] Work Phone: 11-28-2016 17:31-0400 Respiratory Rate 16 /min Cathi Serrano [facility] Work Phone: 11-28-2016 17:31-0400 Weight 76.66 kg Cathi Serrano [facility] Work Phone: Encounters Encounter Date Encounter Type Care Provider Facility Start: 02-06-2024 End: 02-06-2024 Bamboo flowsheet Kimberly Barajas CN Work Phone: [facility] Start: 02-06-2024 End: 02-06-2024 Bamboo flowsheet Kimberly Pérezo CNM Work Phone: [facility] Start: 02-06-2024 End: 02-06-2024 Subsequent care visit Kimbelry Barajas CNM Work Phone: [facility] [...] Not Available Start: 10-31-2023 End: 10-31-2023 ambulatory [facility] Start: 09-21-2023 End: 09-21-2023 ambulatory ADENIKE PUMP Not Available Start: 06-22-2023 End: 06-22-2023 ambulatory ADENIKE PUMP Not Available Start: 05-25-2023 End: 05-25-2023 ambulatory ADENIKE PUMP Not Available Start: 11-28-2016 End: 11-28-2016 Ambulatory CATHI SERRANO [facility] Start: 11-28-2016 End: 11-28-2016 Office outpatient new 30 minutes Cathi Serrano Work Phone: [facility] [place] Comment on above: External hemorrhoid (Primary Dx) [...] Td Vaccines (8 - Td or Tdap) [facility] Start: 06-01-2025 Screening for malign ant neoplasm of cervix Pap Smear [facility] Start: 10-30-2024 Tobacco Screening Tobacco Screening [facility] Start: 03-20-2024 End: 03-20-2024 Patient encounter procedure 03/20/2024 8:00 AM EST Office Visit [facility] [address] [place] [phone] Adenike Atkins NP [address] [place] [address] [facility] Start: 03-05-2024 End: 03-05-2024 Patient encounter procedure 03/05/2024 1:00 PM EST Routine [facility] [address] [place] [phone] Kimberly Barajas CNM [address] [place] [address] [facility] Start: 02-06-2024 End: 02-06-2024 [...] AM EDT Routine [facility] [address] [place] [phone] Kimberly Barajas, CNM [address] [place] [address] Arrived [facility] Comment on above: Arrived Start: 11-07-2023 End: 11-07-2023 Professional / ancillary services management 11/07/2023 11:00 AM EDT Ancillary Procedure [facility] [address] [id number] [facility] Start: 11-07-2023 End: 11-07-2023 ambulatory 11/07/2023 10:30 AM EDT Initial [facility] [address] [place] [id number] Kimberly Barajas, JUDITH [address] [place] [address] Arrived [facility] Comment on above: Arrived Start: 10-08-2023 COVID-19 Vaccine ( season) COVID-19 Vaccine ( season) [facility] Start: 10-08-2023 Influenza vaccination N [facility] Start: 06-02-2023 Adult BMI Screening Adult BMI Screen ing [facility] Start: 05-27-2023 Depression Screening Depression Scre ening [facility] Start: 10-07-2016 Influenza vaccination SEQUENTI AL INFLUENZA VACCINE (#1) [facility] Work Phone: Start: 06-21-2007 Vaccination for li n papillomavirus HPV VACCINES (1 of 3 - Female 3 Dose Series) [facility] Work Phone: Start: 1996 Tetanus vaccination TETANUS EVERY 10 YR [facility] Work Phone: Immunizations Immunization Date Immunization Notes Care Provider Jack hernandez 02-09-2022 tetanus toxoid, reduced diphtheria toxoid, and acellular pertussis vaccine, adsorbed Kimberly Floro CNM Work Phone: [facility] 12-01-2021 influenza, injectabl e, quadrivalent, preservative free Kimberly Floro CNM Work Phone: [facility] 12-01-2021 influenza virus vaccine, unspecified formulation Kimberly Floro CNM Work Phone: [facility] 11-25-2020 influenza, injectabl e, quadrivalent, contains preservative Kimberly Floro CNM Work Phone: [facility] 06-04-2020 COVID-19, mRNA, LNP- S, PF, 100mcg/0.5mL Dose [facility] 05-07-2020 COVID-19, mRNA, LNP- S, PF, 100mcg/0.5mL Dose [facility] 11-15-2019 influenza, injectabl e, quadrivalent, contains preservative Kimberly Floro CNM Work Phone: [facility] 11-20-2017 seasonal influenza, intradermal, preservative free Kimberly Floro CNM Work Phone: [facility] 11-16-2017 influenza, injectabl e, quadrivalent, preservative free Kimberly Floro CNM Work Phone: [facility] 10-09-2015 influenza, seasonal, injectable, preservative free Kimberly Floro CNM Work Phone: [facility] 10-09-2015 tetanus toxoid, reduced diphtheria toxoid, and acellular pertussis vaccine, adsorbed Kimberly Floro CNM Work Phone: [facility] 02-10-2013 influenza, seasonal, injectable Kimberly Floro CNM Work Phone: [facility] 08-24-2001 diphtheria, tetanus toxoids and acellular pertussis vaccine, unspecified formulation Kimberly Floro CNM Work Phone: [facility] 08-24-2001 measles, mumps and rubella virus vaccine Kimberly Floro CNM Work Phone: [facility] 08-24-2001 poliovirus vaccine, inactivated Kimberly Floro CNM Work Phone: [facility] 11-21-1997 diphtheria, tetanus toxoids and acellular pertussis vaccine Kimberly Floro CNM Work Phone: [facility] 11-21-1997 haemophilus influenz ae type b vaccine, conjugate unspecified formulation Kimberly Floro CNM Work Phone: [facility] 11-21-1997 measles, mumps and rubella virus vaccine Kimberly Floro CNM Work Phone: [facility] 11-21-1997 poliovirus vaccine, inactivated Kimberly Floro CNM Work Phone: [facility] 04-14-1997 diphtheria, tetanus toxoids and acellular pertussis vaccine Kimberly Floro CNM Work Phone: [facility] 04-14-1997 haemophilus influenz ae type b vaccine, conjugate unspecified formulation Kimberly Floro CNM Work Phone: [facility] 04-14-1997 hepatitis B vaccine, pediatric or pediatric/adolescent dosage Kimberly Floro CNM Work Phone: [facility] 1996 diphtheria, tetanus toxoids and acellular pertussis vaccine Kimberly Floro CNM Work Phone: [facility] 1996 haemophilus influenz ae type b vaccine, conjugate unspecified formulation Kimberly Floro CNM Work Phone: [facility] 1996 poliovirus vaccine, inactivated Kimberly Floro CNM Work Phone: [facility] 1996 diphtheria, tetanus toxoids and acellular pertussis vaccine Kimberly Floro CNM Work Phone: [facility] 1996 haemophilus influenz ae type b vaccine, conjugate unspecified formulation Kimberly Cjo CNM Work Phone: [facility] 1996 hepatitis B vaccine, pediatric or pediatric/adolescent dosage Kimberly Cjo CNM Work Phone: [facility] 1996 poliovirus vaccine, inactivated Kimberly Floro CNM Work Phone: [facility] 1996 hepatitis B vaccine, pediatric or pediatric/adolescent dosage Kimberly Floro CNM Work Phone: [facility] Payers Date Payer Category Payer Managed Care O (unspecified) [id number] 2023 Private Health Insurance [employer] POS [id number] 2023-Present [phone] [address] [place] [address] [id number] 2023 Private Health Insurance [id number] 2022 Private Health Insurance [id number] 2015 Private Health Insurance [id number] 1996 Unknown [id number] 1996 Unknown [id number] 259 1996 Unknown [id number] 259 1996 Unknown [id number] 259 1996 Unknown [id number] 259 1996 Unknown [id number] 259 1996 Unknown [id number] 259 1996 Unknown [id number] 259 1996 Unknown [id number] 259 Social History Date Type Detail Facility Start: 11-28-2016 Tobacco smoking status [facility] Unknown if ever smoked [facility] Work Phone: Start: 1995 Sex Assigned At Not on file [facility] Phone: Start: 09-16-2021 End: 05-25-2023 Tobacco smoking status [facility] Never smoked tobacco [facility] Start: 09-16-2021 End: 05-25-2023 Tobacco use and exposure Smokeless tobacco non-user [facility] Start: 09-21-2023 End: 11-07-2023 Alcoholic beverage intake Ex-drinker (finding) [facility] Start: 06-15-2023 End: 06-22-2023 History of Social function [facility] Start: 06-15-2023 End: 06-22-2023 Social connection and isolation panel [facility] Do you belong to any clubs or organizations such as mormon groups, unions, fraternal or athletic groups, or [...] Gender identity Identifies as female gender (finding) [facility] Start: 09-23-2023 [facility] Start: 1995 Sex assigned at Female [facility] Start: 04-13-2022 Sexual orientation Heterosexual (finding) [facility] Goals Date Patient Goal Desired Activity /State [...] a routine visit. documented in this encounter [facility] 01-03-2024 History of Presen t illness Narrative [...] a routine visit. documented in this encounter [facility] 12-07-2023 History of Presen t illness Narrative [...] a routine visit. documented in this encounter [facility] 11-14-2023 Miscellaneous Notes Formattin g of this note might be different from the original. Patient called to cancel her initial ob with provider appointment for next week. Per the patient since my phone call appointment I have been thinking & with the changes I will be seeing [facility] for this . Appointment on 11/23/23 has been cancelled. NOTED documented in this encounter [facility] 11-14-2023 Telephone encount er Note Patient called to cancel her initial ob with provider appointment for next week. Per the patient since my phone call appointment I have been thinking & with the changes I will be seeing [facility] for this . Appointment on 11/23/23 has been cancelled. [facility] 11-14-2023 Telephone encount er Note NOTED [facility] 11-07-2023 History of Presen t illness Narrative [...] also given office phone number and [facility] number to call in case of an emergency or after hours needs. PVU and all questions answered. We did discuss place of delivery. Patient should plan to go to [facility] for all services unless an emergency and they need to go to the closest ER. 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 another facility but I did explain I am now at [facility] 100% of the time and would like [...] site, group B documented in this encounter [facility] HealthcareInstructionsNot on filedocumented in this [facility] Narrative* Maternity Services (Routine) - Closed Specialty Diagnoses / Procedures Referred By Sarah lind Referred To Contact Obstetrics and Gynecology Diagnoses examination or test, positive result Encounter for supervision of other normal , first trimester Procedures CT OFFICE/OUTPATIENT [facility] Kimberly Barajas CNM [address] [place] [address] Phone: tel: fax: Kimberly Barajas CNM [address] [place] [address] Phone: tel: fax: Referral ID Status Reason Start Date Expiration Date V isits Requested Visits Authorized [id number] Closed Specialty Services Required 01/01/2024 06/29/2024 1 [...] your doctor if you can take an [id number] medicine. Keep the anal area clean, but [...] Log into your personal health record on [email or web address] and enter F228 in the Education box to learn more about Hemorrhoids: Care Instructions. Current as of: September 15, 2015 Content Version: 11.2 4781-6693 [employer]. Care instructions adapted under license by your healthcare professional. If you have questions about a medical condition or this instruction, always ask your healthcare professional. [employer] disclaims any warranty or liability for your use of this information. in this encounter History of Present Illness * Cathi Serrano PA-C - 11/28/2016 5:59 PM EDT Formatting of this note may be different from the original. PATIENT NAME: Keyla Nicole [facility] [address] [place], [place] [id number] : 1995 DATE OF VISIT: 11/28/2016 #: [...] hemorrhoids several months ago. Was away at [facility] and noted to larger and more painful/tender. [...] section and content) DATE CREATED AUTHOR 08/01/2017 [facility] DATE CREATED AUTHOR AUTHOR'S ORGANIZ ATION 01/31/2021 [facility] dical Specialist DATE CREATED AUTHOR AUTHOR'S ORGANIZ ATION 11/02/2023 [facility] DATE CREATED AUTHOR AUTHOR'S ORGANIZ ATION 02/17/2024 [facility] dical Specialists EPIC Reason for Visit (unrecogniz ed section and content) Reason Comments Hemorrhoids history of hemorroid s, new hemorroid is bigger than normal out of rectum with bleeding and hard to sit very painful, onset 1 week ago Reason Comments Initial Visit Care Teams (unrecognized sec tion and content) Insurance Sales Producer Relationship Specialty Start Date End Date Rosy Harris MD [address] [place], [place] [id number] PCP - General Family Medicine 05/29/23 Adenike Atkins NP [address] [place], [place] [phone] Family Medicine 05/29/23 Insurance Sales Producer Relationship Specialty Start Date End Date Lynette Hayes DO [address] [place], [place] [id number] PCP - General Family Medicine 01/24/22 Insurance Sales Producer Relationship Specialty Start Date End Date Rosy Harris MD [address] [place] [address] PCP - General Family Medicine 05/29/23 [employer] NURSE ADVISOR [address] [place] [address] Family Medicine 05/29/23 Insurance Sales Producer Relationship Specialty Start Date End Date Rosy Harris MD [address] [place] [address] PCP - General Family Medicine 05/29/23 Adenike Atkins NURSE ADVISOR [address] [place] [address] Family Medicine 05/29/23 Insurance Sales Producer Relationship Specialty Start Date End Date Rosy Harris MD [address] [place] [address] PCP - General Family Medicine 05/29/23 Adenike Atkins NP [address] [place] [address] Family Medicine 05/29/23 Insurance Sales Producer Relationship Specialty Start Date End Date Rosy Harris MD [address] [place] [address] PCP - General Family Medicine 05/29/23 Adenike Atkins NURSE ADVISOR [address] [place] [address] Family Medicine 05/29/23 FOR RECORDS PERTAINING TO [...] BE BASED ON THE PRIMARY CLINICAL RECORDS. [facility]. provides no warranty or guarantee of the accuracy or completeness of information in this document.
[2024-03-06 17:12] LABS: Total Protein Urine Random 10.8 mg/dL (<=11.9)
[2024-03-06 18:14] LABS: Total Protein 24 Hour Urine 280.8 mg/24hr (<=149.1); Total Volume 24 Hour Urine 2600 mL/24hr
== END 2024-03-06 16:14 | disposition home or self-care (01) ==
LOC: LAB 16:13
PROVIDERS: PCP Family Medicine; Visit Provider Midwife
DX: I10 Essential (primary) hypertension (principal)
CPT/HCPCS: 81050; 84156

== ENCOUNTER 2024-05-08 18:33 | Observation (INO) | payer OTHER, SELFPAY ==
--- OUTSIDE RECORDS SUMMARY | 2024-05-08 18:39 | XMS_ITS | CCD ---
Author Organization [facility] Inform ion Partnership [facility] Care Team Providers Care Vp Compliance Name Role Phone CATHI SERRANO Unavailable Unav ailable NO, PHYSICIAN Unavailable Unavailable No, Physician Unavailable Unavailable Rosy Harris MD Primary Care Provider [employer]CHAND[employer]ER, Adenike Unavailable Rosy Harris MD Primary Care Provider FreddyLynette leblanc DO Primary Care Provider [phone] CARLINE DIAZ Attending Unavailable FREDDY, LYNETTE G Referring Unavailable FREDDY, LYNETTE G Primary Care Unavailable FLORO, KIMBERLY Referring Unavailable FREDDY, LYNETTE G Primary Care Unavailable RAHEEM MAYES Attending Unavailable FLORO, KIMBERLY Referring Unavailable FREDDY, LYNETTE G Primary Care Unavailable FLORO, KIMBERLY L Attending Unavailable FLORO, KIMBERLY L Attending Unavailable PUMP, ADENIKE Attending Unavailable PUMP, ADENIKE Attending Unavailable FLORO, KIMBERLY L Attending Unavailable FLORO, KIMBERLY L Attending Unavailable PUMP, ADENIKE Attending Unavailable FLORO, KIMBERLY L Attending Unavailable FLORO, KIMBERLY L Referring Unavailable FLORO, KIMBERLY L Attending Unavailable FLORO, KIMBERLY L Attending Unavailable FLORO, KIMBERLY L Referring Unavailable FLORO, KIMBERLY L Attending Unavailable Allergies Allergy Classification Reported Allergen(s) Allergy Type Date of Onset Reaction(s) Facility (20 sources) azithromycin; Translations: [AZITHROMYCIN] Drug Allergy 7 GI Intolerance, Vomiting [facility] Three Repository Medications Current Medications Medication Drug [...] Vit-Fe Fumarate-FA ( Vitamin) 27-0.8 MG tablet (20 sources) take 1 tablet by mouth in the morning Vit-Fe Fumarate-FA ( Vitamin) 27-0.8 MG tablet Take 1 tablet by mouth in the morning. Active vitamins no.2 ( VITAMIN NO.2 ORAL) (4 sources) take 1 tablet by mouth once daily vitamins no.2 ( VITAMIN NO.2 ORAL) Take 1 tablet by mouth daily. Active pyridoxine hydrochloride 25 mg oral tablet (4 sources) take 1 tablet by mouth in the morning pyridoxine, vitamin B6, (vitamin B-6) 25 mg tablet Take 1 tablet (25 mg total) by mouth in the morning. Active Completed/Discontinued Medications Medication Drug Class(es) Dates Sig (Normalized) Sig (Original) docusate sodium 100 mg oral capsule (1 source) Start: 04-16-2022 End: 10-31-2023 take 1 capsule by mouth in the morning, then take 1 capsule by mouth at bedtime docusate sodium (COLACE) 100 mg capsule Take 1 capsule (100 mg total) by mouth in the morning and 1 capsule (100 mg total) before bedtime. 10 capsule 04/16/2022 10/31/2023 Discontinued (Therapy completed) ibuprofen 800 mg oral tablet (1 source) Nonsteroidal Anti-inflammatory Drug Start: 04-16-2022 End: 10-31-2023 take 1 tablet by mouth every eight hours as needed ibuprofen (MOTRIN) 800 mg tablet Take 1 tablet (800 mg total) by mouth every 8 (eight) hours as needed (cramping). 30 tablet 04/16/2022 10/31/2023 Discontinued () Multiple Vitamin (multivitamin) tablet (3 sources) End: [...] Problem Date Documented Date Episodic/Chronic Anxiety disorders (20 sources) Generalized anxiety disorder; Translations: [Generalized anxiety disorder] Onset: 05-24-2023 05-24-2023 Chronic Asthma (20 sources) Intermittent asthma co-occurrent with allergic rhinitis; Translations: [Mild intermittent asthma, uncomplicated] Onset: 05-24-2023 05-24-2023 Chronic Attention-deficit, conduct, and disruptive behavior disorders (20 sources) Attention deficit hyperactivity disorder, predominantly inattentive type; Translations: [Attention-deficit hyperactivity disorder, predominantly inattentive type] Onset: 05-24-2023 05-24-2023 Chronic Bacterial infection; unspecified site (2 sources) Streptococcus agalactiae infection; Translations: [Streptococcal infection, unspecified site] 11-22-2023 Episodic Essential hypertension (1 source) Hypertensive disorder Onset: 03-28-2024 Chronic Hypertension complicating ; childbirth and the puerperium (4 sources) Elevated blood pressure; Translations: [Unspecified maternal hypertension, third trimester] 03-05-2024 Chronic Menstrual disorders (2 sources) Amenorrhea; Translations: [Amenorrhea, unspecified] 11-07-2023 Chronic Mood disorders (20 sources) Dysthymia; Translations: [Dysthymic disorder] Onset: 05-24-2023 05-24-2023 Chronic Other complications of (2 sources) Finding related to ; Translations: [ related conditions, unspecified, second trimester] 01-03-2024 Episodic Other eye disorders (7 sources) Optic disc hemorrhage; Translations: [Other disorders of optic disc, unspecified eye] Onset: 03-25-2024 03-25-2024 Chronic Other female genital disorders (20 sources) Premenstrual tension syndrome; Translations: [Premenstrual tension syndrome] Onset: 05-24-2023 05-24-2023 Chronic Other and delivery including normal (20 sources) Normal ; Translations: [Encounter for supervision of other normal , second trimester] Onset: 10-31-2023 12-07-2023 Episodic Other screening for suspected conditions (not mental disorders or infectious disease) (1 source) Encounter for other specified screening; Translations: [Encounter for other specified screening] Onset: 03-28-2024 Episodic Other upper respiratory disease (20 sources) Allergic rhinitis due to animal hair and dander; Translations: [Allergic rhinitis due to animal (cat) (dog) hair and dander] Onset: 05-24-2023 05-24-2023 Chronic Residual codes; unclassified (1 source) Gestation period, 28 weeks; Translations: [28 weeks gestation of ] 03-28-2024 Episodic Unclassified (1 source) Patient on antidepressant monitoring plan Onset: 09-21-2023 09-21-2023 Unclassified (1 source) Baseline PHQ-9 Onset: 09-21-2023 09-21-2023 Unclassified (20 sources) OB Reminders Onset: 11-10-2023 11-10-2023 Unclassified (1 source) Initial Visit Onset: 10-31-2023 Past or Other Problems Problem Classification Problem Date Documented Da te Episodic/Chronic Anal and rectal conditions (20 sources) Anal fissure; Translations: [Anal fissure, unspecified] Onset: 05-24-2023 Resolved: 05-25-2023 05-25-2023 Episodic Cardiac dysrhythmias (20 sources) Tachycardia; Translations: [Tachycardia, unspecified] Onset: 05-24-2023 Resolved: 05-25-2023 05-25-2023 Episodic Hemorrhoids (3 sources) Residual hemorrhoidal skin tags; Translations: [External hemorrhoids] Onset: 11-28-2016 Episodic Mood disorders (4 sources) Mood disorders Onset: 05-26-2022 05-26-2022 Other circulatory disease (20 sources) Elevated blood-pressure reading without diagnosis of hypertension; Translations: [Elevated blood-pressure reading, without diagnosis of hypertension] Onset: 05-24-2023 Resolved: 05-25-2023 05-25-2023 Episodic Other complications of (20 sources) History of pre-eclampsia; Translations: [Personal history of other complications of , childbirth and the puerperium] Onset: 04-28-2022 Resolved: 05-25-2023 05-25-2023 Episodic Other complications of (1 source) Supervision of with other poor reproductive or obstetric history, unspecified trimester; Translations: [Supervision of with other poor reproductive or obstetric history, unspecified trimester] Onset: 10-31-2023 Episodic Other female genital disorders (20 sources) Polyp of cervix; Translations: [Polyp of cervix uteri] Onset: 02-25-2022 05-24-2023 Episodic Other gastrointestinal disorders (20 sources) Constipation; Translations: [Constipation, unspecified] Onset: 05-24-2023 Resolved: 05-25-2023 05-25-2023 Episodic Results Test Name Value Interpretation Reference Range Facility Protein / creatinine ratio, urineon 05-08-2024 Protein/Creatinine (U) [Mass ratio] 300 mg/g High [facility] Protein/Creatinine (U) [Mass ratio] 0.3 mg/g High [facility] Protein/Creatinine (U) [Mass ratio]on 05-08-2024 Creatinine (U) [Mass/Vol] 40 mg/dL 20 - 275 mg/dL [facility] Interpretation and review of laboratory results Abnormal [facility] Protein (U) [Mass/Vol] 12 mg/dL 5 - 24 mg/dL [facility] Performing Organization Information Site ID: QPT Name: [facility] Address: [address] [place] [address], [address] [place] [id number] Director: Filemon Chadwick MD [facility] TOTAL PROTEIN 24 HOUR UR INEon 03-06-2024 Interpretation and review of laboratory results Abnormal [facility] Protein (U) [Mass/Vol] 10.8 mg/dL NINF - 11.9 mg/dL [facility] TOTAL PROTEIN 24 HOUR URINE 280.8 High [facility] TOTAL VOLUME 24 HOUR URINE 2600 mL/24hr [facility] ALL CBC WITH AUTO DIFFon BASOPHILS ABSOLUTE AUTO 0 N [facility] Basophils/100 WBC (Bld) 0.2 % 0.2 - 2.0 % [facility] Eosinophils/100 WBC (Bld) 0.8 % Low 0.9 - 7.0 % [facility] Erythrocyte distribution width (RBC) [Ratio] 12.7 % 11.0 - 15.0 % [facility] Hematocrit (Bld) [Volume fraction] 35.1 % Low 36.0 - 48.0 % [facility] Hemoglobin (Bld) [Mass/Vol] 11.9 g/dL Low 12.0 - 16.0 g/dL [facility] IMMATURE GRANULOCYTES ABS AUTO 0.07 High [facility] Immature granulocytes/100 WBC (Bld) 0.7 % High 0.0 - 0.5 % [facility] Interpretation and review of laboratory results Abnormal [facility] LYMPHOCYTES ABSOLUTE AUTO 1.5 [facility] Lymphocytes/100 WBC (Bld) 13.9 % Low 20.5 - 60.0 % [facility] MCH (RBC) [Entitic mass] 30.1 pg 26. 7 - 34.0 pg [facility] MCHC (RBC) [Mass/Vol] 33.9 g/dL 29.9 - 35.2 g/dL [facility] MCV (RBC) [Entitic vol] 88.9 fL 81.0 - 99.0 fL [facility] MONOCYTES ABSOLUTE AUTO 0.6 N [facility] Monocytes/100 WBC (Bld) 6.1 % 1.7 - 12.0 % [facility] NEUTROPHILS ABSOLUTE AUTO 8.2 High [facility] Neutrophils/100 WBC (Bld) 78.3 % High 43.0 - 75.0 % [facility] Platelet mean volume (Bld) [Entitic vol] 9.4 fL Low 9.5 - 13.5 fL [facility] TBH EO # 0.1 [facility] PLT 254 [facility] RBC 3.95 Low [facility] WBC 10.5 [facility] Bacteria identified Cx Nom ( U)on 11-10-2023 Appearance (U) Adequate [facility] Bacteria identified Cx Nom (Isol) SEE NOTE Abnormal [facility] Comment on above: 10,000-49,000 CFU/mL of Group [...] management of women. Internal identifier for Provider [id number] [facility] Interpretation and review of laboratory results Abnormal [facility] Specimen source Nom (Unsp spec) URINE [facility] STATUS FINAL [facility] Laboratory - Drug toxicology on 11-10-2023 4-Dlcfxrboeh-7,5-Dimethy l-3,3-Diphenylpyrrolidin e (EDDP) Ql (U) Negative NINF - 100 ng/mL [facility] Amphetamines Ql (U) Negative NINF - 5 00 ng/mL [facility] Barbiturates Ql (U) Negative NINF - 3 00 ng/mL [facility] Benzodiazepines Ql (U) Negative NINF - 100 ng/mL [facility] Benzoylecgonine Ql (U) Negative NINF - 150 ng/mL [facility] Opiates Ql (U) Negative NINF - 100 ng/mL [facility] oxyCODONE Ql (U) Negative NINF - 100 ng/mL [facility] Phencyclidine Ql (U) Negative NINF - 25 ng/mL [facility] Tetrahydrocannabinol Screen method >20 ng/mL Ql (U) Negative NINF - 20 ng/mL [facility] Laboratory - Urinalysison Bacteria LM.HPF (Urine sed) [#/Area] NONE SEEN NONE SEEN /HPF [facility] Epithelial cells.squamous LM.HPF (Urine sed) [#/Area] 0-5 < OR = 5 /HPF [facility] Hyaline casts (Urine sed) [#/Area] NONE SEEN NONE SEEN /LPF [facility] RBC LM.HPF (Urine sed) [#/Area] NONE SEEN < OR = 2 /HPF [facility] WBC LM.HPF (Urine sed) [#/Area] NONE SEEN < OR = 5 /HPF [facility] N. gonorrhoeae DNA YULIYA+probe Ql (Cervical mucus)on 11-10-2023 C. trachomatis rRNA YULIYA+probe Ql (Unsp spec) Not detected NOT DETECTED [facility] N. gonorrhoeae rRNA YULIYA+probe Ql (Unsp spec) Not detected NOT DETECTED [facility] No Panel Informationon 11-09 (ALWAYS MESSAGE) [facility] Comment on above: See Note 1 Note 1 This drug testing is for medical treatment only. Analysis was performed as non-forensic testing and these results should be used only by healthcare providers to render diagnosis or treatment, or to monitor progress of medical conditions. For assistance with interpreting these drug results, please contact a [facility] Toxicology Specialist: [phone] ( ), M-F, 8am-6pm EST. The analytical perfo rmance characteristics of this assay, when used to test SurePath(TM) specimens have been determined by [facility]. The modifications have not been cleared or approved by the FDA. This assay has been validated pursuant to the CLIA regulations and is used for clinical purposes. For additional information, please refer to https://education.Goodybag/faq/WRA875 (This link is being provided for information/ educational purposes only.) Performing Organization Information Site ID: QPT Name: [facility] Address: [address] [place] [address], [address] [place] [phone] Director: Filemon Chadwick MD [facility] CBC panel Auto (Bld)on 11-07 Erythrocyte distribution width (RBC) [Ratio] 12.8 % 11.0 - 15.0 % [facility] Hematocrit (Bld) [Volume fraction] 42.4 % 35.0 - 45.0 % [facility] Hemoglobin (Bld) [Mass/Vol] 14.2 g/dL 11.7 - 15.5 g/dL [facility] MCH (RBC) [Entitic mass] 30 pg 27. 0 - 33.0 pg [facility] MCHC (RBC) [Mass/Vol] 33.5 g/dL 32.0 - 36.0 g/dL [facility] Comment on above: For adults, a slight decrease in the calculated MCHC value (in the range of 30 to 32 g/dL) is most likely not clinically significant; however, it should be interpreted with caution in correlation with other red cell parameters and the patient's clinical condition. MCV (RBC) [Entitic vol] 89.5 fL 80.0 - 100.0 fL [facility] Platelet mean volume (Bld) [Entitic vol] 9.2 fL 7.5 - 12.5 fL [facility] Platelets (Bld) [#/Vol] 269 10*3/uL [facility] RBC (Bld) [#/Vol] 4.74 10*6/uL [facility] WBC (Bld) [#/Vol] 7.6 10*3/uL [facility] Laboratory - Blood bankon ABO group Nom (Bld) A [facility] Blood group antibody screen Ql Detected [facility] Comment on above: Reference range No antibodies detected This assay is a screening test for the detection of red blood cell antibodies. The test is not to be used for pretransfusion screening or for the medical management of an alloimmunized . Rh Nom (Bld) Positive [facility] Comment on above: For additional information, please refer to http://education.Sport/Life.Moxie Jean/faq/ZED537 (This link is being provided for informational/ educational purposes only.) Laboratory - Chemistry and C hemistry - challengeon 11-08-2023 TSH Qn 1.09 m[IU]/L mIU/L [facility] Comment on above: Reference Range > or = 20 Years 0.40-4.50 Ranges First trimester 0.26-2.66 Second trimester 0.55-2.73 Third trimester 0.43-2.91 Laboratory - Hematology and Cell countson 11-08-2023 HbA1c (Bld) [Mass fraction] 5 % NINF [facility] Comment on above: For the [...] diagnosis of diabetes in children. According to [place] [employer] (ADA) guidelines, hemoglobin A1c <7.0% represents optimal control in non- diabetic patients. Different metrics may apply to specific patient populations. Standards of Medical Care in Diabetes(ADA). Laboratory - Microbiology an d Antimicrobial susceptibilityon 11-08-2023 HBV surface Ag IA Ql Non-Reactive NON-REACTIVE [facility] Comment on above: For additional information, please refer to http://Connectv.com.Goodybag/faq/FYU815 (This link is being provided for informational/ educational purposes only.) HCV Ab IA Ql Non-Reactive NON-REACTIVE [facility] Comment on above: HCV antibody was non-reactive. There is no laboratory evidence of HCV infection. In most cases, no further action is required. However, if recent HCV exposure is suspected, a test for HCV RNA (test code 91989) is suggested. For additional information please refer to http://education.Goodybag/faq/MBK01l1 (This link is being provided for informational/ educational purposes only.) HIV 1+2 Ab+HIV1 p24 Ag IA Ql Non-Reactive NON-REACTIVE [facility] Comment on above: HIV-1 antigen [...] purpose. For additional information please refer to http://Connectv.com.Goodybag/faq/NPV619 (This link is being provided for informational/ educational purposes only.) The performance of this assay has not been clinically validated in patients less than 2 years old. Reagin Ab RPR Ql (S) Non-Reactive NON-REACTIVE [facility] Rubella virus IgG Qn (S) 1.68 [IU]/mL Index [facility] Comment on above: Index Interpretation ----- <0.90 Not consistent with immunity 0.90-0.99 Equivocal > or = 1.00 Consistent with immunity The presence of rubella IgG antibody suggests immunization or past or current infection with rubella virus. No Panel Informationon 11-07 MULTIPLE COLLECTION TIMES FOR SAME TEST TYPE. [employer] Organization Information Site ID: QPT Name: [facility] Address: [address] [place] [address], [address] [place] [phone] Director: Filemon Chadwick MD [facility] Chlamydia/GC by PCR ThinPrep fluidon 11-07-2023 Chlamydia Dna(Pcr) Negative [facility] Gonorrhoeae Dna(Pcr) Negative [facility] Drug Screen, Urineon 024 Amphetamine/Methamphetam ine Negative [facility] Opiates Negative [facility] HCG ( test) Ql (U)o n 11-07-2023 Interpretation and review of laboratory results Abnormal [facility] Preg Test, Ur Positive [facility] HIV 1&2 AB/AG Screen (P24 AG )on 11-07-2023 HIV 1&2 AB/AG Non-Reactive [facility] Hemoglobin A1con 11-07-2023 HbA1c (Bld) [Mass fraction] 5 % 4.0 - 6.0 % [facility] No Panel Informationon 11-06 [facility] Type and screenOrdered By: Jayro Saleh on 11-07-2023 Abo/Rh(D) Positive [facility] US OB < 14 WEEKS EARLYon US [...] rate of 174 bpm. Dictated and transcribed 11/07/2023/tm This report has been electronically signed and approved by the interpreting radiologist. Electronically Signed Carmelo Perez M.D. 2023-11-07 15:57:52 Normal Not Available Complete Blood Count with Au to Diffon 01-27-2021 Basophils (Bld) [#/Vol] 0.03 10*3/uL Normal 0.00-0.20 [facility] Specialist Comment on above: Performed By: #### C BCAD, LIPD, TSH reflex FT4, CMP #### [facility] [address], [place] [id number] Basophils/100 WBC (Bld) 0.3 % Normal N [facility] Comment on above: Performed By: #### C BCAD, LIPD, TSH reflex FT4, CMP #### [facility] [address], [place] [id number] Eosinophils (Bld) [#/Vol] 0.07 10*3/uL Normal 0.02-0.50 [facility] Specialist Comment on above: Performed By: #### C BCAD, LIPD, TSH reflex FT4, CMP #### [facility] [address], [place] [id number] Eosinophils/100 WBC (Bld) 0.6 % Normal [facility] Comment on above: Performed By: #### C BCAD, LIPD, TSH reflex FT4, CMP #### [facility] [address], [place] [id number] Erythrocyte distribution width (RBC) [Ratio] 12.4 % Normal 11.0-15.0 [facility] Comment on above: Performed By: #### C BCAD, LIPD, TSH reflex FT4, CMP #### [facility] [address], [place] [id number] Hematocrit (Bld) [Volume fraction] 37.9 % Normal 35.0-47.0 [facility] Comment on above: Performed By: #### C BCAD, LIPD, TSH reflex FT4, CMP #### [facility] [address], [place] [id number] Hemoglobin (Bld) [Mass/Vol] 12.6 g/dL Normal 11.6-15.5 [facility] Comment on above: Performed By: #### C BCAD, LIPD, TSH reflex FT4, CMP #### [facility] [address], [place] [id number] Lymphocytes (Bld) [#/Vol] 1.5 10*3/uL Normal 0.9-3.9 [facility] Comment on above: Performed By: #### C BCAD, LIPD, TSH reflex FT4, CMP #### [facility] [address], [place] [id number] Lymphocytes/100 WBC (Bld) 12.4 % Normal [facility] Comment on above: Performed By: #### C BCAD, LIPD, TSH reflex FT4, CMP #### [facility] [address], [place] [id number] MCH (RBC) [Entitic mass] 29.1 pg Normal 27.0-33.0 [facility] Specialist Comment on above: Performed By: #### C BCAD, LIPD, TSH reflex FT4, CMP #### [facility] [address], [place] [id number] MCHC (RBC) [Mass/Vol] 33.2 g/dL Normal 32.0-36.0 [facility] Comment on above: Performed By: #### C BCAD, LIPD, TSH reflex FT4, CMP #### [facility] [address], [place] [id number] MCV (RBC) [Entitic vol] 88 fL Normal 80-100 [facility] Specialist Comment on above: Performed By: #### C BCAD, LIPD, TSH reflex FT4, CMP #### [facility] [address], [place] [id number] Monocytes (Bld) [#/Vol] 0.9 10*3/uL Normal 0.2-0.9 [facility] Comment on above: Performed By: #### C BCAD, LIPD, TSH reflex FT4, CMP #### [facility] [address], [place] [id number] Monocytes/100 WBC (Bld) 7.5 % Normal N [facility] Specialist Comment on above: Performed By: #### C BCAD, LIPD, TSH reflex FT4, CMP #### [facility] [address], [place] [id number] Neutrophils (Bld) [#/Vol] 9.4 10*3/uL High 1.5-7.8 [facility] Comment on above: Performed By: #### C BCAD, LIPD, TSH reflex FT4, CMP #### [facility] [address], [place] [id number] Neutrophils/100 WBC (Bld) 78.7 % Normal [facility] Comment on above: Performed By: #### C BCAD, LIPD, TSH reflex FT4, CMP #### [facility] [address], [place] [id number] Platelet mean volume (Bld) [Entitic vol] 9.80 fL Normal 7.50-12.50 [facility] Comment on above: Performed By: #### C BCAD, LIPD, TSH reflex FT4, CMP #### [facility] [address], [place] [id number] Platelets (Bld) [#/Vol] 308 10*3/uL Normal 140-400 [facility] Specialist Comment on above: Performed By: #### C BCAD, LIPD, TSH reflex FT4, CMP #### [facility] [address], [place] [id number] RBC (Bld) [#/Vol] 4.33 10*6/uL Normal 3.90-5.20 [facility] Comment on above: Performed By: #### C BCAD, LIPD, TSH reflex FT4, CMP #### [facility] [address], [place] [id number] RDW-SD 39.6 fL Normal 37.0-50.0 [facility] Specialist Comment on above: Performed By: #### C BCAD, LIPD, TSH reflex FT4, CMP #### [facility] [address] [place] [id number] WBC (Bld) [#/Vol] 11.9 10*3/uL High 3.8-11.0 [facility] Comment on above: Performed By: #### C BCAD, LIPD, TSH reflex FT4, CMP #### [facility] [address], [place] [id number] Comprehensive Metabolic Pane jose francisco 01-27-2021 Albumin [Mass/Vol] 4.9 g/dL Normal 3.6-5.1 [facility] Comment on above: Performed By: #### C BCAD, LIPD, TSH reflex FT4, CMP #### [facility] [address], [place] [id number] Albumin/Globulin [Mass ratio] 1.9 {ratio} Normal 1.0-2.5 [facility] Comment on above: Performed By: #### C BCAD, LIPD, TSH reflex FT4, CMP #### [facility] [address], [place] [id number] ALP [Catalytic activity/Vol] 73 U/L Normal 35-119 [facility] Comment on above: Performed By: #### C BCAD, LIPD, TSH reflex FT4, CMP #### [facility] [address], [place] [id number] ALT [Catalytic activity/Vol] 9 U/L Normal 6-33 [facility] Comment on above: Result Comment: 01/06 Female reference range changed. Performed By: #### C BCAD, LIPD, TSH reflex FT4, CMP #### [facility] [address], [place] [id number] Anion gap [Moles/Vol] 16 mmol/L Normal 12-20 [facility] Comment on above: Result Comment: Effe ctive 02/11/2019 reference range changed. Performed By: #### C BCAD, LIPD, TSH reflex FT4, CMP #### [facility] [address], [place] [id number] AST [Catalytic activity/Vol] 14 U/L Normal 9-34 [facility] Comment on above: Performed By: #### C BCAD, LIPD, TSH reflex FT4, CMP #### [facility] [address], [place] [id number] Bilirubin [Mass/Vol] 0.90 mg/dL Normal 0.30-1.20 [facility] Comment on above: Performed By: #### C BCAD, LIPD, TSH reflex FT4, CMP #### [facility] [address], [place] [id number] BUN/CREA 18 Ratio Normal 6-22 [facility] Comment on above: Performed By: #### C BCAD, LIPD, TSH reflex FT4, CMP #### [facility] [address], [place] [id number] Calcium [Mass/Vol] 10.1 mg/dL Normal 8.6-10.2 [facility] Comment on above: Performed By: #### C BCAD, LIPD, TSH reflex FT4, CMP #### [facility] [address], [place] [id number] Chloride [Moles/Vol] 105 mmol/L Normal 98-107 [facility] Comment on above: Performed By: #### C BCAD, LIPD, TSH reflex FT4, CMP #### [facility] [address], [place] [id number] CO2 [Moles/Vol] 24 mmol/L Normal 20-31 [facility] Comment on above: Performed By: #### C BCAD, LIPD, TSH reflex FT4, CMP #### [facility] [address], [place] [id number] Creatinine [Mass/Vol] 0.6 mg/dL Normal 0.6-1.4 [facility] Comment on above: Performed By: #### C BCAD, LIPD, TSH reflex FT4, CMP #### [facility] [address], [place] [id number] eGFRAA 149 mL/min/1.73m2 Normal >60 [facility] Comment on above: Performed By: #### C BCAD, LIPD, TSH reflex FT4, CMP #### [facility] [address], [place] [id number] eGFRNAA 123 mL/min/1.73m2 Normal >60 [facility] Comment on above: Performed By: #### C BCAD, LIPD, TSH reflex FT4, CMP #### [facility] [address], [place] [id number] Globulin (S) [Mass/Vol] 2.6 g/dL Normal 1.9-3.7 Samantha renner [place] [employer] Comment on above: Performed By: #### C BCAD, LIPD, TSH reflex FT4, CMP #### [facility] [address], [place] [id number] Glucose [Mass/Vol] 88 mg/dL Normal 65-99 Dano cook [place] [employer] Comment on above: Result Comment: For FASTING Glucose --- ADA reference ranges: Normal 65-99 mg/dl Prediabetes 100-125 Diabetes >/= 126 Performed By: #### C BCAD, LIPD, TSH reflex FT4, CMP #### [facility] [address], [place] [id number] Potassium [Moles/Vol] 4.1 mmol/L Normal 3.5-5.5 [facility] [place] [employer] Comment on above: Performed By: #### C BCAD, LIPD, TSH reflex FT4, CMP #### [facility] [address], [place] [id number] Protein [Mass/Vol] 7.5 g/dL Normal 6.1-8.1 Dano cook [place] [employer] Comment on above: Performed By: #### C BCAD, LIPD, TSH reflex FT4, CMP #### [facility] [address], [place] [id number] Sodium [Moles/Vol] 140 mmol/L Normal 135-146 Dano cook [place] [employer] Comment on above: Performed By: #### C BCAD, LIPD, TSH reflex FT4, CMP #### [facility] [address], [place] [id number] Urea nitrogen [Mass/Vol] 11 mg/dL Normal 7-25 [facility] Comment on above: Performed By: #### C BCAD, LIPD, TSH reflex FT4, CMP #### [facility] [address], [place] [id number] Lipid Panelon 01-27-2021 Cholesterol [Mass/Vol] 152 mg/dL Normal 125-200 No rtfan [place] [employer] Comment on above: Result Comment: Low risk < 200mg/dL Borderline risk 201-239 mg/dl High risk > or equal to 240 Performed By: #### C BCAD, LIPD, TSH reflex FT4, CMP #### [facility] [address], [place] [id number] Cholesterol in HDL [Mass/Vol] 50 mg/dL Normal >40 [facility] Specialist Comment on above: Result Comment: High Cardiovascular Risk HDL <40 mg/dL Low Cardiovascular Risk HDL > or equal to 60 mg/dl Performed By: #### C BCAD, LIPD, TSH reflex FT4, CMP #### [facility] [address], [place] [id number] Cholesterol in LDL [Mass/Vol] 91 mg/dL Normal [facility] Comment on above: Result Comment: LDL ATP III CLASSIFICATION LDL less than 100 mg/dl Optimal LDL 100-129 mg/dl Near or above optimal LDL 130-159 Borderline high LDL 160-189 High LDL greater than 189 mg/dl Very High Performed By: #### C BCAD, LIPD, TSH reflex FT4, CMP #### [facility] [address], [place] [id number] Cholesterol in VLDL [Mass/Vol] 11 mg/dL Normal [facility] Specialist Comment on above: Performed By: #### C BCAD, LIPD, TSH reflex FT4, CMP #### [facility] [address], [place] [id number] Cholesterol.total/Choles terol in HDL [Mass ratio] 3 {ratio} Normal [facility] Comment on above: Performed By: #### C BCAD, LIPD, TSH reflex FT4, CMP #### [facility] [address], [place] [id number] Triglyceride [Mass/Vol] 55 mg/dL Normal 30-150 [facility] Comment on above: Result Comment: TRIG ATPIII CLASSIFICATIONS TRIG less than 150 mg/dl Normal TRIG 150-199 mg/dl Borderline High TRIG 200-500 mg/dl High TRIG greather than 500 mg/dl Very High Performed By: #### C BCAD, LIPD, TSH reflex FT4, CMP #### [facility] [address], [place] [id number] Q - CULTURE,URINE,ROUTINEon 01-27-2021 CULTURE, URINE, ROUTINE SEE NOTE Normal N [facility] [place] [employer] Comment on above: Order Comment: [facility] performed at: [email or web address], [address], [address] [place] [address], [id number], Loss Prevention Coordinator: Filemon Chadwick MD [facility] Collection Date/Time: [facility] Results Received Date/Time: [facility] Reported Date/Time: Result Comment: CULT URE, URINE, ROUTINE Micro Number: [id number] Test Status: Final Specimen Source: Urine Specimen Quality: Adequate Result: Growth of mixed jairo was isolated, suggesting probable contamination. No further testing will be performed. If clinically indicated, recollection using a method to minimize contamination, with prompt transfer to Urine Culture Transport Tube, is recommended. Performed By: #### [id number] #### [facility] [address] [place] [address] TSH w/ Reflex to Free T4on 1 03-30-2020 TSH 0.733 uIU/mL Normal 0.400-4.500 [facility] Comment on above: Performed By: #### C BCAD, LIPD, TSH reflex FT4, CMP #### [facility] [address] [place], [place] [id number] Vital Signs Date Time Vital Sign Value Performing Clinician Facility 05-06-2024 17:54-0400 Body mass index (BMI) [Ratio] 32.91 kg/m2 [facility] 05-06-2024 17:54-0400 Body weight 93.89 kg [facility] 05-06-2024 17:54-0400 Diastolic blood pressure 90 mm[Hg] [facility] Comment on above: 2nd BP 140/90 3rd 136/74 05-06-2024 17:54-0400 Systolic blood pressure 162 mm[Hg] [facility] Comment on above: 2nd BP 140/90 3rd 136/74 04-09-2024 09:56-0500 Body mass index (BMI) [Ratio] 31.64 kg/m2 Kimberly Barajas CNM Work Phone: [facility] 04-09-2024 09:56-0500 Body weight 90.27 kg Kimberly Barajas CNM Work Phone: [facility] 04-09-2024 09:56-0500 Diastolic blood pressure 80 mm[Hg] Kimberly Barajas CNM Work Phone: [facility] 04-09-2024 09:56-0500 Systolic blood pressure 118 mm[Hg] Kimberly Pérezo CNM Work Phone: [facility] 03-28-2024 13:16-0500 Body height 165.1 cm Raheem Mayes MD Work Phone: [facility] 03-28-2024 13:16-0500 Body mass index (BMI) [Ratio] 32.65 kg/m2 Raheem Mayes MD Work Phone: [facility] 03-28-2024 13:16-0500 Body weight 89 kg Raheem Mayes MD Work Phone: [facility] 03-28-2024 13:16-0500 Diastolic blood pressure 85 mm[Hg] Raheem Mayes MD Work Phone: [facility] 03-28-2024 13:16-0500 Heart rate 94 /min Raheem Mayes MD Work Phone: [facility] 03-28-2024 13:16-0500 Systolic blood pressure 125 mm[Hg] Raheem Mayes MD Work Phone: [facility] 03-05-2024 13:00-0500 Body mass index (BMI) [Ratio] 31 kg/m2 Kimberly Barajas CNM Work Phone: [facility] 03-05-2024 13:00-0500 Body weight 88.45 kg Kimberly Barajas CNM Work Phone: [facility] 03-05-2024 13:00-0500 Diastolic blood pressure 100 mm[Hg] Kimberly Floro CNM Work Phone: [facility] Comment on above: 140/82 140/86 03-05-2024 13:00-0500 Systolic blood pressure 170 mm[Hg] Kimberly Floro CNM Work Phone: [facility] Comment on above: 140/82 140/86 02-06-2024 11:29-0500 Body mass index (BMI) [Ratio] 30.21 kg/m2 Kimberly Floro CNM Work Phone: [facility] 02-06-2024 11:29-0500 Body weight 86.18 kg Kimberly Floro CNM Work Phone: [facility] 02-06-2024 11:29-0500 Diastolic blood pressure 80 mm[Hg] Kimberly Floro CNM Work Phone: [facility] 02-06-2024 11:29-0500 Systolic blood pressure 118 mm[Hg] Kimberly Floro CNM Work Phone: [facility] 01-03-2024 11:25-0500 Body mass index (BMI) [Ratio] 29.25 kg/m2 Kimberly Floro CNM Work Phone: [facility] 01-03-2024 11:25-0500 Body weight 83.46 kg Kimberly Floro CNM Work Phone: [facility] 01-03-2024 11:25-0500 Diastolic blood pressure 80 mm[Hg] Kimberly Floro CNM Work Phone: [facility] 01-03-2024 11:25-0500 Systolic blood pressure 120 mm[Hg] Kimberly Floro CNM Work Phone: [facility] 12-07-2023 10:28-0400 Body mass index (BMI) [Ratio] 29.73 kg/m2 Kimberly Floro CNM Work Phone: [facility] 12-07-2023 10:28-0400 Body weight 84.82 kg Kimberly Floro CNM Work Phone: [facility] 11-07-2023 10:28-0400 Body mass index (BMI) [Ratio] 29.09 kg/m2 Kimberly Barajas CNM Work Phone: [facility] 11-07-2023 10:28-0400 Body weight 83.01 kg Kimberly WONG Work Phone: [facility] 11-28-2016 17:31-0400 BMI (Body Mass Index) 27.28 kg/m2 Cathi Serrano [facility] Work Phone: 11-28-2016 17:31-0400 Body Temperature 99.19 [degF] Cathi Serrano [facility] Work Phone: 11-28-2016 17:31-0400 BP Diastolic 93 mm[Hg] Cathi Serrano [facility] Work Phone: 11-28-2016 17:31-0400 BP Systolic 143 mm[Hg] Cathi Serrano [facility] Work Phone: 11-28-2016 17:31-0400 Height 167.6 cm Cathi Serrano [facility] Work Phone: 11-28-2016 17:31-0400 Pulse (Heart Rate) 76 /min Cathi Serrano [facility] Work Phone: 11-28-2016 17:31-0400 Pulse Oximetry 98 % Cathi Serrano [facility] Work Phone: 11-28-2016 17:31-0400 Respiratory Rate 16 /min Cathi Serrano [facility] Work Phone: 11-28-2016 17:31-0400 Weight 76.66 kg Cathi Serrano [facility] Work Phone: Encounters Encounter Date Encounter Type Care Provider Facility Start: 05-07-2024 End: 05-08-2024 External Result Encounter Kimberly WONGM Work Phone: [facility] Unsolicited Start: 05-07-2024 End: 05-08-2024 External Result Encounter Kimberly Pérezo CNM Work Phone: [facility] Unsolicited Start: 05-06-2024 End: 05-06-2024 Subsequent care visit Kimberly Pérezo CNM Work Phone: [facility] Comment on above: Elevated blood press ure affecting in third trimester, antepartum (Primary Dx) Start: 05-06-2024 ambulatory KIMBERLY L FLORO Not Lisa ilable Start: 05-06-2024 End: 05-06-2024 Bamboo flowsheet Kimberly Irene Floro CNM Work Phone: [facility] Start: 05-06-2024 End: 05-06-2024 Bamboo flowsheet Kimberly Irene Floro CNM Work Phone: [facility] Start: 04-09-2024 End: 04-09-2024 Bamboo flowsheet Kimberly L Floro CNM Work Phone: [facility] Start: 04-09-2024 End: 04-09-2024 Bamboo flowsheet Kimberly L Floro CNM Work Phone: [facility] Start: 04-09-2024 End: 04-09-2024 Subsequent care visit Kimberly Pérezo CNM Work Phone: [facility] Comment on above: Encounter for superv ision of other normal , third trimester (Primary Dx) Start: 04-09-2024 End: 04-09-2024 ambulatory KIMBERLY L FLORO Not Available Start: 03-28-2024 End: 03-28-2024 Office consultation new/estab patient 60 min Raheem Mayes MD Work Phone: [facility] Comment on above: Hx of preeclampsia, prior , currently (Primary Dx); Elevated BP without diagnosis of hypertension; 28 weeks gestation of Start: 03-28-2024 End: 03-28-2024 ambulatory KIMBERLY [facility] Start: 03-12-2024 End: 03-12-2024 ambulatory KIMBERLY L FLORO Not Available Start: 03-12-2024 End: 03-12-2024 Bamboo flowsheet Kimberly L Floro CNM Work Phone: [facility] Start: 03-12-2024 End: 03-12-2024 Bamboo flowsheet Kimberly L Floro CNM Work Phone: [facility] Start: 03-08-2024 End: 03-08-2024 Chart abstracting Raheem Mayes MD Work Phone: [facility] Start: 03-06-2024 End: 03-06-2024 Clinisync Result Encounter Kimberly L Floro CNM Work Phone: [facility] Unsolicited Start: 03-06-2024 End: 03-06-2024 Clinisync Result Encounter Kimberly L Floro CNM Work Phone: [facility] Unsolicited Start: 03-05-2024 End: 03-05-2024 Clinisync Result Encounter Kimberly L Floro CNM Work Phone: [facility] Unsolicited Start: 03-05-2024 End: 03-05-2024 Clinisync Result Encounter Kimberly L Floro CNM Work Phone: [facility] Unsolicited Start: 03-05-2024 End: 03-05-2024 Subsequent care visit Kimberly Irene Pérezo CNM Work Phone: [facility] Comment on above: Encounter for superv ision of other normal , second trimester (Primary Dx); Elevated blood pressure affecting in third trimester, antepartum Start: 03-05-2024 End: 03-05-2024 ambulatory KIMBERLY L FLORO Not Available Start: 02-06-2024 End: 02-06-2024 Bamboo flowsheet Kimberly L Floro CNM Work Phone: [facility] Start: 02-06-2024 End: 02-06-2024 Bamboo flowsheet Kimberly L Floro CNM Work Phone: [facility] Start: 02-06-2024 End: 02-06-2024 Subsequent care visit Kimberly L Floro CNM Work Phone: [facility] Comment on above: Encounter for superv ision of other normal , second trimester (Primary Dx) Start: 02-06-2024 End: 02-06-2024 ambulatory KIMBERLY L FLORO Not Available Start: 01-03-2024 End: 01-03-2024 Bamboo flowsheet Kimberly L Floro CNM Work Phone: [facility] Start: 01-03-2024 End: 01-03-2024 Bamboo flowsheet Kimberly L Floro CNM Work Phone: [facility] Start: 01-03-2024 End: 01-03-2024 Subsequent care visit Kimberly Irene Floro CNM Work Phone: [facility] [...] 12-07-2023 End: 12-07-2023 Subsequent care visit Kimberly L Floro CNM Work Phone: [facility] Comment on above: Encounter for superv ision of other normal , second trimester (Primary Dx) Start: 12-07-2023 End: 12-07-2023 ambulatory KIMBERLY L FLORO Not Available Start: 11-14-2023 End: 11-16-2023 Telephone encounter Caitlin Eaton [facility] Start: 11-07-2023 End: 11-07-2023 Bamboo flowsheet Kimberly L Floro CNM Work Phone: [facility] Start: 11-07-2023 End: 11-07-2023 Bamboo flowsheet Kimberly L Floro CNM Work Phone: [facility] Start: 11-07-2023 End: 11-07-2023 Initial care visit Kimberly Irene Floro CNM Work Phone: [facility] Comment on above: GA: 8w3d Start: 11-07-2023 End: 11-07-2023 ambulatory KIMBERLY L FLORO Not Available Start: 10-31-2023 End: 10-31-2023 Initial care visit aCrline Diaz [employer] OP[employer]-DEPUTY CLERK OF [employer] Work Phone: [facility] Comment on above: First trimester preg tomeka (Primary Dx) Start: 10-31-2023 End: 10-31-2023 ambulatory CARLINE DIAZ [facility] Start: 09-21-2023 End: 09-21-2023 ambulatory ADENIKE PUMP Not Available Start: 06-22-2023 End: 06-22-2023 ambulatory ADENIKE PUMP Not Available Start: 05-25-2023 End: 05-25-2023 ambulatory ADENIKE PUMP Not Available Start: 11-28-2016 End: 11-28-2016 Ambulatory CATHI SERRANO [facility] Start: 11-28-2016 End: 11-28-2016 Office outpatient new 30 minutes Cathi Serrano Work Phone: [facility] Comment on above: External hemorrhoid (Primary Dx) Procedures Date Procedure Procedure Detail Performing Clinician Start: 05-07-2024 Protein total xcpt refractometry urine Kimberly L Floro CNM Work Phone: Start: 03-06-2024 TBH TOTAL PROTEIN 24 HOUR URINE Kimberly L Elisao CNM Work Phone: Start: 03-05-2024 ALL CBC WITH AUTO DIFF Kimberly L Elisao C NM Work Phone: Start: 11-07-2023 Antibody screen Raheem Mayes MD Work Phone: Start: 11-07-2023 CHLAMYDIA/GC BY PCR THINPREP FLUID Not In System Ref Prov Start: 11-07-2023 Drug scrn 1+ class nonchromo Not In System Ref Prov Start: 11-07-2023 HIV 1&2 AB/AG SCREEN (P24 AG) Not In System Ref Prov Start: 11-07-2023 TYPE AND SCREEN Not In System Ref Prov Start: 11-07-2023 End: 11-07-2023 Culture bacterial quanttative colony count urine Kimberly L Elisao CNM Work Phone: Start: 11-07-2023 DRUG TOX MONITORIGN 6 W/ CONF,URINE Kimberly L Floro CNM Work Phone: Start: 11-07-2023 URINALYSIS MICROSCOPIC Kimberly L Floro C NM Work Phone: Start: 11-07-2023 Antibody screen rbc each serum technique Kimberly L Floro CNM Work Phone: Start: 11-07-2023 End: 11-07-2023 Hemoglobin glycosylated a1c Kimberly L Floro CNM Work Phone: Start: 11-07-2023 TSH W/REFLEX TO FT4 Kimberly L Floro CNM Work Phone: Start: 11-07-2023 Urine test visual color cmprsn meths Kimberly L Floro CNM Work Phone: Start: 05-24-2023 End: 05-25-2023 History of cholecystectomy History of laparoscopic cholecystectomy Kimberly Floro CNM Work Phone: Start: 06-01-2022 Microscopic observation [Identifier] in Cervix by Cyto stain Carline Diaz MUSSEL OPENER-DEPUTY CLERK OF COURT Work Phone: Start: 05-26-2022 Adult depression screening assessment Carline Diaz MUSSEL OPENER-DEPUTY CLERK OF COURT Work Phone: Plan of Treatment Date Care Activity Detail Author Start: 02-10-2032 DTaP,Tdap and Td Vaccines (8 - Td or Tdap) DTaP,Tdap and Td Vaccines (8 - Td or Tdap) [facility] Start: 06-01-2025 Screening for malign ant neoplasm of cervix Pap Smear [facility] Start: 03-28-2025 Adult BMI Screening Adult BMI Screen ing [facility] Start: 03-28-2025 Tobacco Screening Tobacco Screening [facility] Start: 10-30-2024 Tobacco Screening Tobacco Screening [facility] Start: 10-07-2024 Influenza vaccination Influenz a Vaccine (Season Ended) [facility] Start: 05-21-2024 End: 05-21-2024 Patient encounter procedure 05/21/2024 11:30 AM EDT Routine [facility] [address] [place] [phone] Kimberly Barajas CN [address] [place] [address] [facility] Start: 05-09-2024 End: 05-09-2024 Patient encounter procedure 05/09/2024 2:15 PM EDT Appointment [facility] [address] [phone] [facility] Start: 05-06-2024 End: 05-06-2024 Patient encounter procedure 05/06/2024 6:00 PM EDT Routine [facility] [address] [place] [phone] Kimberly Barajas, JUDITHM [address] [place] [address] Arrived [facility] Comment on above: Arrived Start: 05-06-2024 End: 05-06-2025 Protein/Creatinine [Mass Ratio] in Urine Protein / creatinine ratio, urine Lab Routine Elevated blood pressure affecting in third trimester, antepartum Expected: 05/06/2024 (Approximate), Expires: 05/06/2025 [facility] Work Phone: Comment on above: Expected: 05/06/2024 (Approximate), Expires: 05/06/2025 Start: 04-25-2024 End: 04-25-2024 Patient encounter procedure 04/25/2024 9:30 AM EDT Routine [facility] [address] [place] [phone] Kimberly Barajas, [facility] [address] [place] [address] [facility] Start: 04-09-2024 End: 04-09-2024 Patient encounter procedure 04/09/2024 10:00 AM EST Routine [facility] [address] [place] [phone] Kimberly Barajas, [facility] [address] [place] [address] Arrived [facility] Comment on above: Arrived Start: 03-28-2024 End: 03-28-2024 Telemedicine consultation with patient 03/28/2024 2:30 PM EST Telemedicine [facility] [address] [phone] Raheem Mayes MD [address] [address] [facility] Start: 03-28-2024 End: 03-28-2024 Patient encounter procedure 03/28/2024 1:00 PM EST Appointment [facility] [address] [phone] [facility] Start: 03-20-2024 End: 03-20-2024 Patient encounter procedure 03/20/2024 8:00 AM EST Office Visit [facility] [address] [place] [phone] Pump, Adenike, [employer] [address] [place] [address] [facility] Start: 03-12-2024 End: 03-12-2024 Patient encounter procedure [facility] Comment on above: Arrived Start: 03-05-2024 End: 03-05-2024 Patient encounter procedure 03/05/2024 1:00 PM EST Routine [facility] [address] [place] [phone] Kimberly Barajas, JUDITHM [address] [place] [address] [facility] Start: 02-06-2024 End: 02-06-2024 [...] AM EDT Routine [facility] [address] [place] [phone] Kimberly Barajas, JUDITHM [address] [place] [address] Arrived [facility] Comment on above: Arrived Start: 11-22-2023 End: 11-22-2023 ambulatory 11/22/2023 8:30 AM EDT Initial [facility] [address] [place] [phone] Carline Diaz, MUSSEL OPENER-DEPUTY CLERK OF [employer] [address] [place] [address] [facility] Start: 11-07-2023 End: 11-07-2023 Professional / ancillary services management 11/07/2023 11:00 AM EDT Ancillary Procedure [facility] [address] [phone] [facility] Start: 11-07-2023 End: 11-07-2023 ambulatory 11/07/2023 10:30 AM EDT Initial [facility] [address] [place] [phone] Kimberly Barajas, DRAKE [address] [place] [address] Arrived [facility] Comment on above: Arrived Start: 10-31-2023 End: 10-30-2024 US transvaginal for Ultrasound less than 14 weeks with transvaginal Imaging Routine First trimester Expected: 10/31/2023, Expires: 10/30/2024 [facility] Work Phone: Comment on above: Expected: 10/31/2023 , Expires: 10/30/2024 Start: 10-08-2023 COVID-19 Vaccine ( season) COVID-19 Vaccine ( season) [facility] Start: 10-08-2023 COVID-19 Vaccine ( season) COVID-19 Vaccine ( season) [facility] Start: 10-08-2023 [facility] Start: 06-02-2023 Adult BMI Screening Adult BMI Screen ing [facility] Start: 05-27-2023 Depression Screening Depression Scre ening [facility] Start: 10-07-2016 Influenza vaccination SEQUENTI AL INFLUENZA VACCINE (#1) [facility] [facility] Work Phone: Start: 2014 Adult BMI Follow Up Plan Adult BMI F ollow Up Plan [facility] Start: 06-21-2007 Vaccination for li n papillomavirus HPV VACCINES (1 of 3 - Female 3 Dose Series) [facility] Work Phone: Start: 1996 Tetanus vaccination TETANUS EVERY 10 YR [facility] Work Phone: End: 10-30-2024 Bacteria identified in Urine by Culture Urine Culture Microbiology Routine First trimester 1 Occurrences starting 10/31/2023 until 10/30/[facility] Occurrences starti ng 10/31/2023 until 10/30/2024 End: 10-30-2024 CBC panel - Blood by Automated count CBC without diff Lab Routine First trimester 1 Occurrences starting 10/31/2023 until 10/30/2024 [facility]: 1 Occurrences starti ng 10/31/2023 until 10/30/2024 End: 10-30-2024 Comprehensive metabolic 2000 panel - Serum or Plasma Comprehensive metabolic panel Lab Routine First trimester 1 Occurrences starting 10/31/2023 until 10/30/2024 [facility]: 1 Occurrences starti ng 10/31/2023 until 10/30/2024 End: 10-30-2024 Drug Screen, Urine Drug Screen, Urine Lab Routine First trimester 1 Occurrences starting 10/31/2023 until 10/30/2024 [facility]: 1 Occurrences starti ng 10/31/2023 until 10/30/2024 End: 10-30-2024 Glucose 1h post 50g load Glucose 1h post 50g load Lab Routine First trimester 1 Occurrences starting 10/31/2023 until 10/30/2024 [facility] above: 1 Occurrences starti ng 10/31/2023 until 10/30/2024 End: 10-30-2024 HCG, Quantitative, HCG, Quantitative, Lab Routine First trimester 1 Occurrences starting 10/31/2023 until 10/30/2024 [facility] Comment on above: 1 Occurrences starti ng 10/31/2023 until 10/30/2024 End: 10-30-2024 Hepatitis panel, acute Hepatitis panel, acute Lab Routine First trimester 1 Occurrences starting 10/31/2023 until 10/30/2024 [facility] Comment on above: 1 Occurrences starti ng 10/31/2023 until 10/30/2024 End: 10-30-2024 HIV 1&2 AB/AG Screen (P24 AG) HIV 1&2 AB/AG Screen (P24 AG) Lab Routine First trimester 1 Occurrences starting 10/31/2023 until 10/30/2024 [facility] Comment on above: 1 Occurrences starti ng 10/31/2023 until 10/30/2024 End: 10-30-2024 LDH LDH Lab Routine First trimester 1 Occurrences starting 10/31/2023 until 10/30/2024 [facility] Comment on above: 1 Occurrences starti ng 10/31/2023 until 10/30/2024 End: 10-30-2024 Rubella IGG immune status Rubella IGG immune status Lab Routine First trimester 1 Occurrences starting 10/31/2023 until 10/30/2024 [facility] Comment on above: 1 Occurrences starti ng 10/31/2023 until 10/30/2024 End: 10-30-2024 Syphilis Total(Unknown Syphilis Status) Syphilis Total(Unknown Syphilis Status) Lab Routine First trimester 1 Occurrences starting 10/31/2023 until 10/30/2024 [facility] Comment on above: 1 Occurrences starti ng 10/31/2023 until 10/30/2024 End: 10-30-2024 Type and screen Type and screen Blood Bank Routine First trimester 1 Occurrences starting 10/31/2023 until 10/30/2024 [facility] Comment on above: 1 Occurrences starti ng 10/31/2023 until 10/30/2024 End: 10-30-2024 Urate [Mass/volume] in Serum or Plasma Uric acid Lab Routine First trimester 1 Occurrences starting 10/31/2023 until 10/30/2024 [facility] Comment on above: 1 Occurrences starti ng 10/31/2023 until 10/30/2024 End: 10-30-2024 Urinalysis Urinalysis Lab Routine First trimester 1 Occurrences starting 10/31/2023 until 10/30/2024 [facility] Comment on above: 1 Occurrences starti ng 10/31/2023 until 10/30/2024 End: 10-30-2024 Urine Creatinine,random Urine Creatinine,random Lab Routine First trimester 1 Occurrences starting 10/31/2023 until 10/30/2024 [facility] Comment on above: 1 Occurrences starti ng 10/31/2023 until 10/30/2024 End: 10-30-2024 Urine protein creatinine ratio Urine protein creatinine ratio Lab Routine First trimester 1 Occurrences starting 10/31/2023 until 10/30/2024 [facility] Comment on above: 1 Occurrences starti ng 10/31/2023 until 10/30/2024 End: 10-30-2024 Varicella zoster antibody, IgG Varicella zoster antibody, IgG Lab Routine First trimester 1 Occurrences starting 10/31/2023 until 10/30/2024 [facility] Comment on above: 1 Occurrences starti ng 10/31/2023 until 10/30/2024 Immunizations Immunization Date Immunization Notes Care Provider Fa cili 02-09-2022 tetanus toxoid, redu brady diphtheria toxoid, and acellular pertussis vaccine, adsorbed Carline Krotzer [employer]ENER-DEPUTY CLERK OF COURT Work Phone: [facility] 12-01-2021 influenza, injectabl e, quadrivalent, preservative free Carline Krotzer [employer]SEL OP[employer]-DEPUTY CLERK OF COURT Work Phone: [facility] 12-01-2021 influenza virus vaccine, unspecified formulation Carline Krotzer [employer]SEL [employer]-DEPUTY CLERK OF COURT Work Phone: [facility] 11-25-2020 influenza, injectabl e, quadrivalent, contains preservative Kimberly Floro CN Work Phone: [facility] 06-04-2020 COVID-19, mRNA, LNP- S, PF, 100mcg/0.5mL Dose Carline Krotzer [employer]-DEPUTY CLERK OF COURT Work Phone: [facility] 05-07-2020 COVID-19, mRNA, LNP- S, PF, 100mcg/0.5mL Dose Carline Diaz [employer]SEL [employer]-DEPUTY CLERK OF COURT Work Phone: [facility] 11-15-2019 influenza, injectabl e, quadrivalent, contains preservative Kimberly Floro CNM Work Phone: [facility] 11-20-2017 seasonal influenza, intradermal, preservative free Kimberly Floro CNM Work Phone: [facility] 11-16-2017 influenza, injectabl e, quadrivalent, preservative free Kimberly Floro CNM Work Phone: [facility] 10-09-2015 influenza, seasonal, injectable, preservative free Kimberly Floro CNM Work Phone: [facility] 10-09-2015 tetanus toxoid, redu brady diphtheria toxoid, and acellular pertussis vaccine, adsorbed Kimberly Floro CNM Work Phone: [facility] 02-10-2013 influenza, seasonal, injectable Kimberly Floro CNM Work Phone: [facility] 08-24-2001 diphtheria, tetanus toxoids and acellular pertussis vaccine, unspecified formulation Kimberly Floro CNM Work Phone: [facility] 08-24-2001 measles, mumps and rubella virus vaccine Kimberly Floro CNM Work Phone: [facility] 08-24-2001 poliovirus vaccine, inactivated Kimberly Floro CNM Work Phone: [facility] 11-21-1997 diphtheria, tetanus toxoids and acellular pertussis vaccine Kimberly Floro CNM Work Phone: [facility] 11-21-1997 haemophilus influenz ae type b vaccine, conjugate unspecified formulation Kimberly Floro CNM Work Phone: [facility] 11-21-1997 measles, mumps and rubella virus vaccine Kimberly Floro CNM Work Phone: [facility] 11-21-1997 poliovirus vaccine, inactivated Kimberly Floro CNM Work Phone: [facility] 04-14-1997 diphtheria, tetanus toxoids and acellular pertussis vaccine Kimberly Floro CNM Work Phone: [facility] 04-14-1997 haemophilus influenz ae type b vaccine, conjugate unspecified formulation Kimberly Floro CNM Work Phone: [facility] 04-14-1997 hepatitis B vaccine, pediatric or pediatric/adolescent dosage Kimberly Floro CNM Work Phone: [facility] 1996 diphtheria, tetanus toxoids and acellular pertussis vaccine Kimberly Floro CNM Work Phone: [facility] 1996 haemophilus influenz ae type b vaccine, conjugate unspecified formulation Kimberly Floro CNM Work Phone: [facility] 1996 poliovirus vaccine, inactivated Kimberly Floro CNM Work Phone: [facility] 1996 diphtheria, tetanus toxoids and acellular pertussis vaccine Kimberly Floro CNM Work Phone: [facility] 1996 haemophilus influenz ae type b vaccine, conjugate unspecified formulation Kimberly Floro CNM Work Phone: [facility] 1996 hepatitis B vaccine, pediatric or pediatric/adolescent dosage Kimberly Floro CNM Work Phone: [facility] 1996 poliovirus vaccine, inactivated Kimberly Floro CNM Work Phone: [facility] 1996 hepatitis B vaccine, pediatric or pediatric/adolescent dosage Kimberly Floro CNM Work Phone: [facility] Payers Date Payer Category Payer Commercial Managed C are - POS [employer] [id number] 2023 Managed Care HMO (unspecified) [id number] 2023 Private Health Insurance AETNA AETNA POS [id number] 2023-Present [phone] [address] [place] [address] [id number] 2023 Private Health Insurance [id number] 2022 Private Health Insurance [id number] 2015 Private Health Insurance [id number] 1996 Unknown [id number] 1996 Unknown [id number] .2.1285 1996 Unknown [id number] .2.1285 1996 Unknown [id number] .[id number] 1996 Unknown [id number] .2.1258 1996 Unknown [id number] .2.1258 1996 Unknown [id number] .2.1258 1996 Unknown [id number] .2.1258 1996 Unknown [id number] .2.9 1996 Unknown [id number] .2.1258 1996 Unknown [id number] .2.1258 1996 Unknown [id number] .2.1258 1996 Unknown [id number] .2.1258 1996 Unknown [id number] .2.1258 1996 Unknown [id number] .2.1259 Social History Date Type Detail Facility Start: 11-28-2016 Tobacco smoking status PRIS Unknown if ever smoked [facility] Work Phone: Start: 1996 Sex Assigned At Not on file [facility] Phone: Start: 09-16-2021 End: 05-25-2023 Tobacco smoking status NHIS Never smoked tobacco [facility] Start: 09-16-2021 End: 05-25-2023 Tobacco use and exposure Smokeless tobacco non-user [facility] Start: 09-21-2023 End: 11-07-2023 Alcoholic beverage intake Ex-drinker (finding) [facility] Start: 06-15-2023 End: 06-22-2023 History of Social function [facility] Start: 06-15-2023 End: 06-22-2023 Social connection and isolation panel [facility] Do you belong to any clubs or organizations such as buddhism groups, unions, fraternal or athletic groups, or [...] or more drinks on 1 occasion? Never [facility] How hard is it for y ou [...] Gender identity Identifies as female gender (finding) [facility] Start: 09-23-2023 [facility] Start: 1995 Sex assigned at Female [facility] Start: 09-11-2014 Sex Female (finding) [facility] Start: 04-13-2022 Sexual orientation Heterosexual (finding) [facility] Goals Date Patient Goal Desired Activity /State Personal health goal Personal health goal Clinical Notes 10-31-2023 to 05-06-2024 Kimberly Barajas CNM - 05/06/2024 6:00 PM Isra Barajas CNM - 04/09/2024 10:00 AM Fernie Arrieta CMA - 03/28/2024 2:30 PM Cooper Mayes MD - 03/28/2024 2:30 PM EST Note Date & Type Note Facility 05-06-2024 History of Presen t illness Narrative Subjective No chief complaint on file. Mariam Ng is a 28 y.o. at 34w2d with a working estimated date of delivery [...] liveborn infant, Pre-eclampsia Her is complicated by: anxiety Objective Physical Exam weight: 207 lb Expected Total Weight Gain: 15 lb-25 lb Pregravid BMI: 29.10 BP: 162/90 Urine protein-negative Urine glucose-negative Assessment/Plan Patient states she gets herself all worked up when she comes without her . She worries about everything in the outside world when she's alone. Is araceli doing alright, when will I get out of the appt so I can get home and get him ready for bed, does Florentino need my help with him? I get inside myself and then I get anxiety, I can rest and it will come down. She is seeing [facility] and I'm going to have her start taking her blood pressure at home twice a day. PVU Urine sent for total protein, creatinine ratio. Continue vitamin. Labs reviewed. GBS taken. Expected mode of delivery Follow up in 1 week for a routine visit. documented in this encounter [facility] 04-09-2024 History of Presen t illness Narrative Subjective No chief complaint on file. Mariam Ng is a 28 y.o. at 30w3d with a working estimated date of delivery [...] liveborn infant, Pre-eclampsia Her is complicated by: Objective Physical Exam weight: 199 lb Expected Total Weight Gain: 15 lb-25 lb Pregravid BMI: 29.10 BP: 118/80 Urine protein-15 Urine glucose-negative Assessment/Plan Diagnoses and all orders for this visit: Encounter for supervision of other normal , third trimester Patient has final appt with [facility] and they keep asking her why are you here again? , your blood pressure is perfect I assured patient that's why she's there, to have the consultation and make sure all is well as she had the episode of HTN and previous history of Pre-e Continue vitamin. Labs reviewed. GBS taken. Expected mode of delivery Follow up in 1 week for a routine visit. documented in this encounter [facility] 03-28-2024 History of Presen t illness Narrative Headache/epigastric pain/blurry vision/swelling? No Cramping/contractions? No Abnormal vaginal discharge? No Spotting/vaginal bleeding? No Loss or gush of fluid like your water may have broken? No Do you have cats at home? No Do you change the litter box (reason: risk of toxoplasmosis)? N/a Genetic testing done this here or other office? declined does not want to know gender. Have you been seen here at [facility] in a previous ? No Recent ER visits or hospitalizations? no Bring blood sugar log or meter with you today? (Please bring them with you for every visit at [facility]) n/a Flu vaccine (Dec-April)? No Any concerns that you would like me to mention to the provider today? No Video Visit via Real-time Synchronous Audiovisual Provider Location: [facility]- MEDICINE AT [address] [id number] Patient Location: [place] Patient Location [facility] [place]: None Video Visit Consent Statement: I discussed risks, benefits, and alternatives of a real-time synchronous audiovisual consultation with the patient (and any accompanying persons) including the risks that the patient's personal health details and medical records will be discussed over real-time, synchronous, interactive video/audio/telecommunication technology, the visit will not be recorded without the express consent of both the provider and the patient, and that there are some limitations compared to [id number] evaluations. We elected to proceed. REASON FOR CONSULTATION: elevated BP, maternal papilledema HISTORY OF PRESENT ILLNESS: Mariam Ng is a pleasant 28 y.o. at 28w5d due on Estimated Date of Delivery: 06/15/24. complicated by: Elevated BP at 170/100 on 03/05/2023 without diagnosis of chronic hypertension. Patient monitored blood pressures carefully at home for week, blood pressures were all in normal range 110/70. Extensive chart review of blood pressures in the last few years, no diagnosis of chronic hypertension. Per patient report, HELLP labs and 24hr UP normal. Pt followed with opthomologist, no e/o papilledema. History of preeclampsia in G1 . Initiated on baby aspirin at 25 weeks gestation. Today, the patient is doing well. She denies headaches, vision changes, nausea, vomiting, right upper quadrant or epigastric pain, SOB or chest pain. She denies contractions, vaginal bleeding, leaking of fluid. She reports good movement. Aneuploidy screening: declined I have reviewed the pertinent available patient records including but not limited to notes, labs and images. PAST OBSTETRICAL HISTORY: OB History Para Term AB Living 2 1 1 0 0 1 SAB IAB Ectopic Multiple Live Births 0 0 0 0 1 # Outcome Date GA Lbr Dyllan/2nd Weight Sex Type Anes PTL Lv 2 Current 1 Term 04/14/22 38w0d 12:24 / 02:12 3.135 kg M Vag-Spont EPI N KYLE Comments: induced Complications: with tachycardia during labor, Preeclampsia MEDICAL HISTORY: Past Medical History: Diagnosis Date ADHD Anxiety Asthma SURGICAL HISTORY: Past Surgical History: Procedure Laterality Date CHOLECYSTECTOMY FAMILY/GENETIC HISTORY: Family History Problem Relation Age of Onset Stroke Paternal Grandfather Diabetes Father Hypertension Mother Stroke Paternal Aunt Ovarian cancer Neg Hx Colon cancer Neg Hx Breast cancer Neg Hx Uterine cancer Neg Hx SOCIAL HISTORY: Social History Tobacco Use Smoking status: Never Smokeless tobacco: Never Vaping Use Vaping status: Never Used Substance Use Topics Alcohol use: Not Currently Drug use: Never ALLERGIES: Allergies Allergen Reactions Azithromycin Vomiting CURRENT MEDICATIONS: Current Outpatient Medications: vitamins no.2 ( VITAMIN NO.2 ORAL), Take 1 tablet by mouth daily., Disp: , Rfl: pyridoxine, vitamin B6, (vitamin B-6) 25 mg tablet, Take 1 tablet (25 mg total) by mouth in the morning., Disp: , Rfl: RECENT HOSPITALIZATION: none HABITS: Patient activity no restrictions, diet no restrictions REVIEW OF SYSTEMS: Head and Neck: Negative for any dizziness and headaches. Cardiovascular and Respiratory System: Denies any chest pain, shortness of breath, and coughing. Abdominal and System: Denies any abdominal pain, nausea, vomiting, vaginal bleeding, and vaginal discharge REVIEW OF TESTS AND ULTRASOUND REPORTS: Referral records and epic chart were reviewed Pertinent Ultrasound findings are see formal ultrasound report. PHYSICAL EXAMINATION: BP 125/85 Pulse 94 Ht 165.1 cm (5' 5 ) Wt 89 kg (196 lb 3.2 oz) LMP 09/09/2023 BMI 32.65 kg/m Well-appearing in no distress. Respirations not labored, speaking comfortably in full sentences Gravid abdomen OVERALL ASSESSMENT -Mariam Ng is a pleasant 28 y.o. at 28w5d -elevated blood pressure without diagnosis of chronic hypertension -history of preeclampsia in G1 COUNSELING Women with history of preeclampsia are at increased risk for recurrent preeclampsia in a subsequent . However, the recurrence risk varies with the severity and time of onset of the initial episode. Women with early-onset, severe preeclampsia are at greatest risk of recurrence (as high as 25 to 65 percent). The risk of preeclampsia in a second is much lower (5 to 7 percent) for women who had preeclampsia without severe features in their first and less than 1 percent in women who had a normotensive first . According to ACOG, women with any of the high-risk factors for preeclampsia (previous with preeclampsia, multifetal gestation, renal disease, autoimmune disease, type 1 or type 2 diabetes mellitus, and chronic hypertension) and those with more than one of the moderate-risk factors (first , maternal age of 35 years or older, a body mass index of more than 30, family history of preeclampsia, sociodemographic characteristics, and personal history factors) should receive low-dose (81 mg/day) aspirin for preeclampsia prophylaxis, initiated between 12 weeks and 28 weeks of gestation (optimally before 16 weeks of gestation) and continuing until delivery. She is currently on Baby Aspirin 81 mg (initiated at 25wk GA) and encouraged her to continue BASA throughout the . Reviewed preeclampsia precautions in detail. Patient was not meet criteria for history of chronic hypertension or gestational hypertension in this . SUMMARY/RECOMMENDATION: Continue baby aspirin for the remainder of In future pregnancies recommend initiating baby aspirin between 12 and 16 weeks gestation for attempted preeclampsia prevention given personal history and family history of preeclampsia Incomplete level 2 anatomy ultrasound, attempt completion and repeat growth ultrasound in 4-6 weeks through M Repeat growth ultrasound following completion of level 2 anatomy through primary OB, anticipated at 37-38 weeks gestation Anticipate term delivery at her local hospital. No indication for early term delivery based on current clinical picture. Vaginal delivery is preferred mode, reserve for usual obstetrical indications. DISPOSITION: At this point the patient is in complete care of her buyer internship. Patient does have ultrasound scheduled with us. Thank you for allowing me to participate in the care of Mariam Ng. If there any questions please do not hesitate to contact us. Raheem Mayes MD Maternal- Medicine [facility] [address] [place] [address] [facility], the CDC, and other organizations representing maternal and public health professionals recommend that , , and lactating people and those considering receive the COVID-19 vaccination. Vaccination is the best method to reduce maternal and complications of SARS-CoV-2 infection. This document was created with [employer] technology. Though I make every effort to review the dictation as it is transcribed, on occasion the spoken word can be misinterpreted by the technology leading to inappropriate words, phrases, or sentences. This note is addressed to the requesting provider as a consultation for clinical guidance. Specific medical abbreviations are occasionally used and those are generally approved by the [place]?Board of?Obstetrics and?Gynecology?as well as?Coleman harvey abbreviations. The above plan of care was based solely on the diagnoses for which a consultation was requested. ?More frequent testing may be indicated based on her other medical/obstetrical conditions. The management of other or medical conditions is beyond the scope of requested consultation and will continue to be followed by the primary buyer internship or primary care provider. Note to patient: The 21st Century Cures Act makes medical notes like these available to patients in the interest of transparency. However, be advised this is a medical document. It is intended as peer to peer communication. It is written in medical language and may contain abbreviations or verbiage that are unfamiliar. It may appear blunt or direct. Medical documents are intended to carry relevant information, facts as evident, and the clinical opinion of the practitioner. f documented in this encounter [facility] 03-05-2024 History of Presen t illness Narrative Subjective No chief complaint on file. Mariam Ng is a 28 y.o. at 25w3d with a working estimated date of delivery [...] liveborn infant, Pre-eclampsia Her is complicated by: high blood pressure, stress Patient went to the eye doctor a couple of weeks ago to get her contacts renewed and routine eye exam. She states they took pictures behind her eyes and said she needed to see a specialist. She states they said the swelling in her retina is 'either because I had pre-eclampsia in the past or I currently have hypertension. She has an appt with retinal specialist on 03/[address] Mattson's office. She denies any symptoms. No headache, no blurry vision, no pain, denies epigastric pain. States I was doing great until coming here today as I was so nervous what you'd say about my eyes. States she had elevated blood pressure 1 time at 38 weeks and was induced. She had one elevated pressure in labor and was told if she has one more she would go to [place] and get medication. States she did not have one and delivered in [place]. PCP has never had her on blood pressure medication, nor was she diagnosed with chronic HTN. Her blood pressure thus this far in have been all normal. I want to consult with Dr Crocker for recommendation. [facility] appt will be beneficial to her also. The following portions of the chart were reviewed this encounter and updated as appropriate: Patient sent to [facility] for OBS. Orders given to Alma Objective Physical Exam weight: 195 lb Expected Total Weight Gain: 15 lb-25 lb Pregravid BMI: 29.10 BP: (!) 170/100 Urine protein Urine glucose Labs: reviewed Imaging Assessment/Plan Continue vitamin. Labs reviewed. Rhogam GTT . Follow up in 2 weeks for a routine visit. documented in this encounter [facility] 02-06-2024 History of Presen t illness Narrative Subjective No chief complaint on file. Mariam Ng is a 28 y.o. at 21w3d [...] a routine visit. documented in this encounter [facility] 01-03-2024 History of Presen t illness Narrative Subjective No chief complaint on file. Mariam Ng is a 28 y.o. at 16w4d [...] a routine visit. documented in this encounter [facility] 12-07-2023 History of Presen t illness Narrative Subjective No chief complaint on file. Mariam gN is a 28 y.o. at 12w5d with [...] a routine visit. documented in this encounter [facility] 11-14-2023 Miscellaneous Notes Patient called to cancel her initial ob with provider appointment for next week. Per the patient since my phone call appointment I have been thinking & with the changes I will be seeing [facility] for this . Appointment on 11/23/23 has been cancelled. NOTED documented in this encounter [facility] 11-14-2023 Telephone encounter Note Patient called to cancel her initial ob with provider appointment for next week. Per the patient since my phone call appointment I have been thinking & with the changes I will be seeing [facility] for this . Appointment on 11/23/23 has been cancelled. [facility] 11-14-2023 Telephone encounter Note NOTED [facility] 11-07-2023 History of Presen t illness Narrative penSubjective Mariam Ng is a 28 y.o. at 8w3d [...] also given office phone number and [facility] number to call in case of an emergency or after hours needs. PVU and all questions answered. We did discuss place of delivery. Patient should plan to go to [facility] for all services unless an emergency and they need to go to the closest ER. 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 another facility but I did explain I am now at [place] 100% of the time and would like to do all deliveries there. documented in this encounter [facility] 10-31-2023 History of Presen t illness Narrative OBI-LMP-8-3. Last pap was 8-3. Pt declined genetic testing. Pt's dad is DM-early 1 HR GTT ordered. Pt has HX of preeclampsia with first -baseline labs ordered. OB Intake Video Visit 28 y.o. at 7w3d contacted through [facility] for OB intake video visit. verified and verbal consent obtained for video visit. Patient and provider both currently located in the [facility]. This was a planned . FOB involved (Florentino). Patient denies vaginal bleeding. Frequent nausea / vomiting. She has picked up unisom and b-6. Obstetrical, Medical, Surgical, Social & Family history reviewed. Reviewed EDC and that it could change based upon ultrasound. Problem list updated. Negative history of GDM, delivery, short cervix, previous , HSV, PPH, shoulder dystocia, substance abuse, IUGR, macrosomia, severe anemia, or 4th degree lacerations. No hx uterine surgeries or LEEP. Risk factors include: hx preeclampsia, asthma, anxiety / ADHD. 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 Discussed testing. Pt declines all. The patient reports that there is not domestic violence in her life. Discussed exercise, diet and weight gain. Discussed smoking, alcohol use and drug use. Patient denies all. Discussed early danger signs and when/how to notify provider. Reviewed CNM / DEPUTY CLERK OF COURT care, collaboration & referral to PHOTOGRAPHIC MACHINE OPERATOR as needed. Reviewed course of care. Discussed CDC recommendation for exclusive for the first 6 months. Patient has been covid vaccinated. Discussed recommendations in . Patient is taking an OTC vitamin. All questions answered. Educational materials provided through [facility]. Ultrasound and labs ordered. Appointment scheduled for initial OB visit with provider on 11/22/23. COLETTE Adam 10/31/23 1331 documented in this encounter [facility] Evaluation note Diagnosis Encounter for supervision of other normal , second trimester- Primary documented in this encounter [facility]* Diagnosis examination or test, positive [...] site, group B documented in this encounter [facility]* Diagnosis Encounter for supervision of other normal , second trimester- Primary Elevated blood pressure affecting in third trimester, antepartum documented in this encounter [facility] HealthcareEvaluation note* Diagnosis First trimester - Primary state, incidental [facility]* Diagnosis Hx of preeclampsia, prior , currently - Primary with other poor obstetric history Elevated BP without diagnosis of hypertension 28 weeks gestation of documented in this [facility]* Diagnosis Encounter for supervision of other normal , third trimester- Primary documented in this encounter [facility]* Diagnosis Elevated blood pressure affecting in third trimester, antepartum- Primary documented in this encounter [facility] HealthcareInstructionsNot on filedocumented in this encounterPro[facility] SystemInstructionsNot on filedocumented in this encounterProSub[facility] SystemInstructions* Attachments The following attachments cannot be sent through Care Everywhere. * Activity during (Palauan) * How to Adapt to Physical Changes During (Palauan) * care (Palauan) documented in this encounterPro[facility] SystemInstructionsNot on file documented in this encounterWVUMedicine [facility] SystemReason for visit Narrative* Maternity Services (Routine) - Closed Specialty Diagnoses / Procedures Referred By Contac t Referred To Contact Obstetrics and Gynecology Diagnoses examination or test, positive result Encounter for supervision of other normal , first trimester Procedures ID OFFICE/OUTPATIENT [facility] Kimberly Barajas CNM [address] [place] [address] Phone: tel: fax: Kimberly Barajas CNM [address] [place] [address] Phone: tel: fax: Referral ID Status Reason Start Date Expiration Date V isits Requested Visits Authorized [id number] Closed Specialty Services Required 01/01/2024 06/29/2024 1 1 [facility] Summary Purpose Family History No Family History Records FoundNo Family History Records FoundNo Family History Records FoundNo Family History Records Found Advance Directives Date Activated Date Inactivated Comments 04/13/2022 11:20 [...] your doctor if you can take an codl-jed-bximukx medicine. Keep the anal area clean, but [...] or psyllium (available in bulk at most [employer] stores) and sprinkling it on foods or [...] Log into your personal health record on https://[employer] Drumm and enter F228 in the Education box to learn more about Hemorrhoids: Care Instructions. Current as of: September 15, 2015 Content Version: 11.2 3704-7766 [employer]. Care instructions adapted under license by your healthcare professional. If you have questions about a medical condition or this instruction, always ask your healthcare professional. [employer] disclaims any warranty or liability for your use of this information. in this encounter History of Present Illness * Cathi Serrano PA-C - 11/28/2016 5:59 PM EDT Formatting of this note may be different from the original. PATIENT NAME: Mariam Nicole [facility] [address] [facility] [address] : 1995 DATE OF VISIT: 11/28/2016 #: [...] hemorrhoids several months ago. Was away at [place] and noted to larger and more painful/tender. [...] section and content) DATE CREATED AUTHOR 08/01/2017 [facility] Care DATE CREATED AUTHOR AUTHOR'S ORGANIZ ATION 01/31/2021 [facility] dical Specialist DATE CREATED AUTHOR AUTHOR'S ORGANIZ ATION 03/30/2024 [facility] DATE CREATED AUTHOR AUTHOR'S ORGANIZ ATION 05/08/2024 [facility] dical Specialists EPIC Reason for Visit (unrecogniz ed section and content) Reason Comments Hemorrhoids history of hemorroid s, new hemorroid is bigger than normal out of rectum with bleeding and hard to sit very painful, onset 1 week ago Reason Comments Initial Visit Reason Comments Initial Visit Reason Comments Hypertension Care Teams (unrecognized sec tion and content) Vp Compliance Relationship Specialty Start Date End Date Wonderly, Rosy Cedillo MD [address] [place] [address] PCP - General Family Medicine 05/29/23 Pump, Adenike, [employer] [address] [place] [address] Family Medicine 05/29/23 Vp Compliance Relationship Specialty Start Date End Date WonderRosy mujica MD [address] [place] [address] PCP - General Family Medicine 05/29/23 Pump, Adenike, [employer] [address] [place] [address] Family Medicine 05/29/23 Vp Compliance Relationship Specialty Start Date End Date Rosy Harris MD [address] [place] [address] PCP - General Family Medicine 05/29/23 PumpAdenike [employer] [address] [place] [address] Family Medicine 05/29/23 Vp Compliance Relationship Specialty Start Date End Date Rosy Harris MD [address] [place] [address] PCP - General Family Medicine 05/29/23 PumpAdenike, [employer] [address] [place] [address] Family Medicine 05/29/23 Vp Compliance Relationship Specialty Start Date End Date Rosy Harris MD [address] [place] [address] PCP - General Family Medicine 05/29/23 PumpAdenike, [employer] [address] [place] [address] Family Medicine 05/29/23 Vp Compliance Relationship Specialty Start Date End Date Rosy Harris MD [address] [facility] [place] [address] PCP - General Family Medicine 05/29/23 Adenike Atkins [employer] [address] [facility] [place] [address] Family Medicine 05/29/23 Vp Compliance Relationship Specialty Start Date End Date Lynette Hayes DO [address] [facility] [place] [address] PCP - General Family Medicine 01/24/22 Vp Compliance Relationship Specialty Start Date End Date Lynette Hayes DO [address] [facility] [place] [address] PCP - General Family Medicine 01/24/22 Vp Compliance Relationship Specialty Start Date End Date Lynette Hayes DO [address] [facility] [place] [address] PCP - General Family Medicine 01/24/22 Vp Compliance Relationship Specialty Start Date End Date Lynette Hayes DO [address] [facility] [place] [address] PCP - General Family Medicine 01/24/22 Vp Compliance Relationship Specialty Start Date End Date Rosy Harris MD [address] [facility] [place] [address] PCP - General Family Medicine 05/29/23 Adenike Atkins NP [address] [facility] [place] [address] [facility] 05/29/23 Vp Compliance Relationship Specialty Start Date End Date Rosy Harris MD [address] [place] [address] PCP - General [facility] Medicine 05/29/23 PumpAdenkie, [employer] [address] [place] [address] [facility] 05/29/23 Vp Compliance Relationship Specialty Start Date End Date Rosy Harris MD [address] [place] [address] PCP - General [facility] 05/29/23 Adenike Atkins [employer] [address] [place] [address] [facility] 05/29/23 FOR RECORDS PERTAINING TO PATIENTS WHO [...] BE BASED ON THE PRIMARY CLINICAL RECORDS. [facility] [employer] [facility]. provides no warranty or guarantee of the accuracy or completeness of information in this document.
[2024-05-08 18:53] LABS: Basophils Percent Auto 0.2 % (0.2-2.0); Eosinophils Absolute Auto 0.1 10^3/uL (0.0-0.7); Eosinophils Percent Auto 0.9 % (0.9-7.0); Hematocrit 33.6 % (36.0-48.0); Hemoglobin 11.2 g/dL (12.0-16.0); Immature Granulocytes Abs Auto 0.09 10^3/uL (0.00-0.03); Immature Granulocytes Pct Auto 0.8 % (0.0-0.5); Lymphocytes Absolute Auto 1.7 10^3/uL (1.2-3.8); Lymphocytes Percent Auto 16.2 % (20.5-60.0); Mean Corpuscular HGB Conc 33.3 g/dL (29.9-35.2); Mean Corpuscular Hemoglobin 28.1 pg (26.7-34.0); Mean Corpuscular Volume 84.4 fL (81.0-99.0); Mean Platelet Volume 9.2 fL (9.5-13.5); Monocytes Absolute Auto 0.7 10^3/uL (0.3-0.8); Monocytes Percent Auto 6.8 % (1.7-12.0); Neutrophils Percent Auto 75.1 % (43.0-75.0); Platelet Count 218 10^3/uL (150-450); Red Blood Count 3.98 10^6/uL (4.20-5.40); Red Cell Distribution Width 12.6 % (11.0-15.0); White Blood Count 10.7 10^3/uL (4.0-11.0)
[2024-05-08 18:59] VITALS: BP 143/94; PULSE 146
[2024-05-08 19:04] VITALS: BP 148/93; PULSE 139
[2024-05-08 19:07] LABS: Creatinine Urine Random 13.77 mg/dL (20.00-300.00); Protein Creatinine Ratio Urine 0.44; Total Protein Urine Random <6.0 mg/dL (<=11.9)
[2024-05-08 19:10] VITALS: BP 150/88
[2024-05-08 19:10] LABS: Alanine Aminotransferase 10 U/L (14-59); Albumin Globulin Ratio 0.7; Albumin Level 2.8 g/dL (3.4-5.0); Alkaline Phosphatase 101 U/L (46-116); Anion Gap 16.6; Aspartate Amino Transferase 17 U/L (15-37); Bilirubin Total 0.3 mg/dL (0.2-1.0); Calcium 8.9 mg/dL (8.5-10.1); Carbon Dioxide 23.1 mmol/L (21.0-32.0); Chloride 104 mmol/L (98-107); Estimated GFR (African America >60 (>=60 mL/min/1.73m^2); Estimated GFR (Non-African Ame >60 (>=60 mL/min/1.73m^2); Glucose 104 mg/dL (74-106); Lactate Dehydrogenase 147 U/L (81-234); Potassium 3.7 mmol/L (3.5-5.1); Sodium 140 mmol/L (136-145); Total Protein 6.8 g/dL (6.4-8.2); Uric Acid 2.9 mg/dL (2.6-6.0)
[2024-05-08 19:57] VITALS: BP 140/87; PULSE 120
[2024-05-08 20:35] VITALS: BP 137/87; PULSE 142
[2024-05-08 21:21] VITALS: BP 142/92; PULSE 127
--- NOTE | 2024-05-08 22:27 | P.EN_ITS ---
Event Note Event Note: patient was sent to hospital due to elevated blood pressure, and abnormal labs. Total urine protein creatinine ratio has increased from 0.30 on Monday to 0.44 today. Patient has no symptoms of severe features. no visual disturbances, no flank pain, no headache. She is anxious. Patient has negative assessment. LS clear x4 bases and heart rate is NSR. Discussed with patient that I will call [place] and [facility] and consult for pre-eclampsia,. Called and spoke with Dr Foster recommends we can keep patient here overnight, monitor her closely, repeat labs in the morning and obtain growth US here. She also stated she would accept transfer if I wanted her to go to [place] at this time. Reassurance that she is preeclamptic without severe features and if she develops severe features, I would start magnesium sulfate and hypertensive protocol and ship her to [place]. Spoke with patient and she is in agreement to stay at [facility] and continue observation. She states I prefer to stay here if i can. Also updated Dr Crocker with the plan of care.
[2024-05-09 00:01] VITALS: BP 114/70; PULSE 107; TEMP 36.9
[2024-05-09 02:19] VITALS: BP 110/69; PULSE 98
[2024-05-09 03:58] VITALS: BP 125/85; PULSE 103; TEMP 36.6
[2024-05-09 07:28] VITALS: BP 137/78; PULSE 104
[2024-05-09 07:34] VITALS: BP 137/83; PULSE 108
--- NOTE | 2024-05-09 08:00 | US_ITS ---
The [address] [address] Patient Name: KEYLA BLANCO MRN: [id number] date: 1995 Sex: F Assigned Patient Location: [facility] Current Patient Location: [facility] Accession/Order Number: [id number] Exam Date: 05/09/2024 08:22 Report Date: 05/09/2024 08:33 At the request of: KIMBERLY CHATMAN APRN CNShawn Procedure: US OB growth ULTRASOUND OB GROWTH CLINICAL DATA: Preeclampsia COMPARISON: 01/27/2024 There is a single live intrauterine gestation in cephalic presentation. There is cardiac and somatic activity with heart rate of 147 bpm. The fluid index measures 10.4 cm which is in low-normal range. The placenta is anterior. The following measurements were obtained: Biparietal diameter 8.3 cm 36 weeks 1 day 86% Head circumference 34.3 cm 39 weeks 4 days >97% Abdominal circumference 32.3 cm 36 weeks 2 days 91% Femur length 7.0 cm 35 weeks 5 days 70% The composite ultrasound age based on these measurements is 37 weeks 0 days +/- 2 weeks 4 days. Estimated date of delivery is 05/30/2024. The estimated date of delivery based on the comparison ultrasound was 06/11/2024. The estimated weight is 6 lbs. 8 oz. +/- 1 lb. 0 oz. US/US OB growth IMPRESSION: SINGLE LIVE INTRAUTERINE GESTATION WITH ULTRASOUND AGE OF 37 WEEKS 0 DAYS. THIS IS AT THE UPPER LIMITS OF STANDARD DEVIATION OF INTERVAL GROWTH SINCE THE PRIOR. Impression dictated by: Jeannie Rios M.D.05/09/2024 8:33 AM Dictation Location: [place] [address] Electronically authenticated by: [id number] Date: 05/09/2024 08:33
[2024-05-09 08:11] LABS: Hematocrit 32.3 % (36.0-48.0); Hemoglobin 10.7 g/dL (12.0-16.0); Mean Corpuscular HGB Conc 33.1 g/dL (29.9-35.2); Mean Corpuscular Hemoglobin 28.3 pg (26.7-34.0); Mean Corpuscular Volume 85.4 fL (81.0-99.0); Mean Platelet Volume 9.6 fL (9.5-13.5); Platelet Count 200 10^3/uL (150-450); Red Blood Count 3.78 10^6/uL (4.20-5.40); Red Cell Distribution Width 12.8 % (11.0-15.0); White Blood Count 9.7 10^3/uL (4.0-11.0)
[2024-05-09 09:13] LABS: Alanine Aminotransferase 10 U/L (14-59); Albumin Globulin Ratio 0.7; Albumin Level 2.6 g/dL (3.4-5.0); Alkaline Phosphatase 101 U/L (46-116); Anion Gap 17.1; Aspartate Amino Transferase 20 U/L (15-37); Bilirubin Total 0.4 mg/dL (0.2-1.0); Calcium 8.4 mg/dL (8.5-10.1); Carbon Dioxide 20.9 mmol/L (21.0-32.0); Chloride 105 mmol/L (98-107); Estimated GFR (African America >60 (>=60 mL/min/1.73m^2); Estimated GFR (Non-African Ame >60 (>=60 mL/min/1.73m^2); Globulin 3.8 g/dL; Glucose 85 mg/dL (74-106); Lactate Dehydrogenase 191 U/L (81-234); Sodium 139 mmol/L (136-145); Total Protein 6.4 g/dL (6.4-8.2); Uric Acid 3.3 mg/dL (2.6-6.0)
[2024-05-09] MEDS: LABETALOL HCL 100 MG TABLET PO (09:52)
[2024-05-09 10:14] LABS: Creatinine Urine Random 137.09 mg/dL (20.00-300.00); Protein Creatinine Ratio Urine 0.27; Total Protein Urine Random 36.4 mg/dL (<=11.9)
[2024-05-09 10:46] VITALS: BP 124/85; PULSE 112
== END 2024-05-09 11:00 | disposition home or self-care (01) ==
PROVIDERS: Admitting Provider Midwife; PCP Family Medicine; Visit Provider Midwife
DX: O14.03 Mild to moderate pre-eclampsia, third trimester (principal); Z3A.37 37 weeks gestation of pregnancy
CPT/HCPCS: 36415; 76816; 80053; 82570; 83615; 84156; 84550; 85025; 85027; G0378; G0379

== ENCOUNTER 2024-05-27 16:54 | Inpatient (IN) | payer OTHER, SELFPAY ==
[2024-05-27] VITALS (17 sets, daily range): BP systolic 128–160; BP diastolic 72–96; PULSE 88–141; TEMP 37.6
--- OUTSIDE RECORDS SUMMARY | 2024-05-27 17:05 | XMS_ITS | CCD ---
Author Organization [facility] Inform ion Partnership [facility] Care Team Providers Care Professional Application Designer Name Role Phone CATHI SERRANO Unavailable Unav ailable NO, PHYSICIAN Unavailable Unavailable No, Physician Unavailable Unavailable Rosy Nascimento MD Primary Care Provider Pump TIRE SPOTTER, Adenike Unavailable Rosy Nascimento MD Primary Care Provider Freddy Lynette WEISS Primary Care Provider CARLINE DIAZ Attending Unavailable FREDDY, LYNETTE G Referring Unavailable FREDDY, LYNETTE G Primary Care Unavailable FLORO, KIMBERLY Referring Unavailable FREDDY, LYNETTE G Primary Care Unavailable MAYES, RAHEEM Attending Unavailable FLORO, KIMBERLY Referring Unavailable FREDDY, [...] [AZITHROMYCIN] Drug Allergy 7 GI Intolerance, Vomiting [facility] Three Repository Medications Current Medications Medication Drug Class(es) Dates Sig (Normalized) Sig (Original) Levonorgestrel-Ethin yl Estradiol 0.1 Mg-20 McG Tablet (1 source) Progestin, Estrogen, Progestin-containin g Intrauterine Device take 1 tablet by mouth once daily levonorgestrel-ethi nyl estradiol (AVIANE,ALESSE,LESS ISAAK) 0.1-20 mg-mcg per tablet Take 1 tablet by mouth daily. Active ferrous sulfate 325 mg oral tablet (8 sources) Start: 05-09-2024 take 1 tablet by mouth in the morning ferrous sulfate 325 (65 Fe) MG tablet Take 1 tablet by mouth in the morning and 1 tablet before bedtime. 05/09/2024 Active hydrocortisone 25 mg/ml topical cream (1 source) Corticosteroid Start: 11-28-2016 End: 11-28-2017 apply 30 g rectal route twice daily hydrocortisone (ANUSOL-HC) 2.5 % rectal cream Insert into the rectum 2 (two) times a day. 30 g 0 11/28/2016 11/28/2017 Active labetalol hydrochloride 100 mg oral tablet (8 sources) beta-Adrenergic Gutierrez Start: 05-09-2024 take 1 tablet by mouth in the morning labetalol (Normodyne) 100 MG tablet Take 1 tablet by mouth in the morning and 1 tablet before bedtime. 05/09/2024 Active Vit-Fe Fumarate-FA ( Vitamin) 27-0.8 MG [...] 05-24-2023 05-24-2023 Chronic Bacterial infection; unspecified site (4 sources) Streptococcus agalactiae infection; Translations: [Streptococcal infection, unspecified site] 11-22-2023 Episodic Essential hypertension (1 source) Hypertensive disorder Onset: 03-28-2024 Chronic Hypertension complicating ; childbirth and the puerperium (8 sources) Elevated blood pressure; Translations: [Unspecified maternal hypertension, third trimester] 03-05-2024 Chronic Hypertension complicating ; childbirth and the puerperium (4 sources) Hypertension AND/OR vomiting complicating childbirth AND/OR puerperium; Translations: [Gestational [-induced] hypertension without significant proteinuria, third trimester] 05-21-2024 Episodic Menstrual disorders (2 sources) Amenorrhea; Translations: [Amenorrhea, unspecified] 11-07-2023 Chronic Mood disorders (20 sources) Dysthymia; Translations: [Dysthymic disorder] Onset: 05-24-2023 05-24-2023 Chronic Other complications of (2 sources) Finding related to ; Translations: [ related conditions, unspecified, second trimester] 01-03-2024 Episodic Other eye disorders (19 sources) Optic disc hemorrhage; Translations: [Other disorders [...] Test Name Value Interpretation Reference Range Facility [facility] CBC WITH PLATELET NO DI FFERENTIALon 05-09-2024 Erythrocyte distribution width (RBC) [Ratio] 12.8 % 11.0 - 15.0 % [facility] Hematocrit (Bld) [Volume fraction] 32.3 % Low 36.0 - 48.0 % [facility] Hemoglobin (Bld) [Mass/Vol] 10.7 g/dL Low 12.0 - 16.0 g/dL [facility] Interpretation and review of laboratory results Abnormal [facility] MCH (RBC) [Entitic mass] 28.3 pg 26. 7 - 34.0 pg [facility] MCHC (RBC) [Mass/Vol] 33.1 g/dL 29.9 - 35.2 g/dL [facility] MCV (RBC) [Entitic vol] 85.4 fL 81.0 - 99.0 fL [facility] Platelet mean volume (Bld) [Entitic vol] 9.6 fL 9.5 - 13.5 fL [facility] TB PLT 200 [facility] RBC 3.78 Low [facility] WBC 9.7 [facility] US OB GROWTHon 05-09-2024 [place] [address] Ultrasound Report Signed Patient: KEYLA NG MR#: [id number] : 1995 Acct:[id number] Age/Sex: 28 / F ADM Date: Loc: [facility] 256-[address]: KIMBERLY BARAJAS APRN, CNM Ordering Physician: KIMBERLY BARAJAS APRN, CNM Date of Service: 05/09/24 Procedure(s): US OB growth Accession Number(s): [id number] cc: KIMBERLY BARAJAS APRN, CNM; ROSY NASCIMENTO [address] [address] Patient Name: KEYLA NG MRN: [facility]:[id number] date: 1995 Sex: F Assigned Patient Location: [facility] Current Patient Location: [facility] Accession/Order Number: [id number] Exam Date: 05/09/2024 08:22 Report Date: 05/09/2024 08:33 At the request of: KIMBERLY BARAJAS APRN, CNM Procedure: US OB growth ULTRASOUND OB GROWTH CLINICAL DATA: Preeclampsia COMPARISON: 01/27/2024 There is a single live intrauterine gestation in cephalic presentation. There is cardiac and somatic activity with heart rate of 147 bpm. The fluid index measures 10.4 cm which is in low-normal range. The placenta is anterior. The following measurements were obtained: Biparietal diameter 8.3 cm 36 weeks 1 day 86% Head circumference 34.3 cm 39 weeks 4 days >97% Abdominal circumference 32.3 cm 36 weeks 2 days 91% Femur length 7.0 cm 35 weeks 5 days 70% The composite ultrasound age based on these measurements is 37 weeks 0 days +/- 2 weeks 4 days. Estimated date of delivery is 05/30/2024. The estimated date of delivery based on the comparison ultrasound was 06/11/2024. The estimated weight is 6 lbs. 8 oz. +/- 1 lb. 0 oz. US/US OB growth IMPRESSION: SINGLE LIVE INTRAUTERINE GESTATION WITH ULTRASOUND AGE OF 37 WEEKS 0 DAYS. THIS IS AT THE UPPER LIMITS OF STANDARD DEVIATION OF INTERVAL GROWTH SINCE THE PRIOR. Impression dictated by: Jeannie Rios M.D.05/09/2024 8:33 AM Dictation Location: [place] [address] Electronically authenticated by: [id number] Y Date: 05/09/2024 08:33 Dictated By: Jeannie Rios M.D. Signed By: 05/09/24 0836 DD/ 0833 TD/TT: Horologist Apprentice: [facility] Radiology, Radiologist, MD - 05/09/2024 [place] [address] Ultrasound Report Signed Patient: KEYLA NG MR#: [id number] : 1995 Acct:[id number] Age/Sex: 28 / F ADM Date: Loc: [facility] 256-[address]: KIMBERLY BARAJAS APRN, CNM Ordering Physician: KIMBERLY BARAJAS APRN, CNM Date of Service: 05/09/24 Procedure(s): US OB growth Accession Number(s): [id number] cc: KIMBERLY BARAJAS APRN, DRAKE; PILYROSY Mamadou [place] [id number] Patient Name: KEYLA NG MRN: [id number] date: 1995 Sex: F Assigned Patient Location: [facility] Current Patient Location: [facility] Accession/Order Number: [id number] Exam Date: 05/09/2024 08:22 Report Date: 05/09/2024 08:33 At the request of: KIMBERLY BARAJAS APRN, CNM Procedure: US OB growth ULTRASOUND OB GROWTH CLINICAL DATA: Preeclampsia COMPARISON: 01/27/2024 There is a single live intrauterine gestation in cephalic presentation. There is cardiac and somatic activity with heart rate of 147 bpm. The fluid index measures 10.4 cm which is in low-normal range. The placenta is anterior. The following measurements were obtained: Biparietal diameter 8.3 cm 36 weeks 1 day 86% Head circumference 34.3 cm 39 weeks 4 days >97% Abdominal circumference 32.3 cm 36 weeks 2 days 91% Femur length 7.0 cm 35 weeks 5 days 70% The composite ultrasound age based on these measurements is 37 weeks 0 days +/- 2 weeks 4 days. Estimated date of delivery is 05/30/2024. The estimated date of delivery based on the comparison ultrasound was 06/11/2024. The estimated weight is 6 lbs. 8 oz. +/- 1 lb. 0 oz. US/US OB growth IMPRESSION: SINGLE LIVE INTRAUTERINE GESTATION WITH ULTRASOUND AGE OF 37 WEEKS 0 DAYS. THIS IS AT THE UPPER LIMITS OF STANDARD DEVIATION OF INTERVAL GROWTH SINCE THE PRIOR. Impression dictated by: Jeannie Rios M.D.05/09/2024 8:33 AM Dictation Location: [place] [address] Electronically authenticated by: [id number] Y Date: 05/09/2024 08:33 Dictated By: Jeannie Rios M.D. Signed By: 05/09/2436 DD/ 2 TD/TT: Horologist Apprentice: [facility] Radiology Study observation (narrative) [facility] US OB GROWTHOrdered By: Rebeka ologist Radiology on 05-09-2024 [facility] Work Phone: ALL CBC WITH AUTO DIFFon BASOPHILS ABSOLUTE AUTO 0 [address] [facility] Basophils/100 WBC (Bld) 0.2 % 0.2 - 2.0 % [facility] Eosinophils/100 WBC (Bld) 0.9 % 0.9 - 7.0 % [facility] Erythrocyte distribution width (RBC) [Ratio] 12.6 % 11.0 - 15.0 % [facility] Hematocrit (Bld) [Volume fraction] 33.6 % Low 36.0 - 48.0 % [facility] Hemoglobin (Bld) [Mass/Vol] 11.2 g/dL Low 12.0 - 16.0 g/dL [facility] IMMATURE GRANULOCYTES ABS AUTO 0.09 High [facility] Immature granulocytes/100 WBC (Bld) 0.8 % High 0.0 - 0.5 % [facility] Interpretation and review of laboratory results Abnormal [facility] LYMPHOCYTES ABSOLUTE AUTO 1.7 [facility] Lymphocytes/100 WBC (Bld) 16.2 % Low 20.5 - 60.0 % [facility] MCH (RBC) [Entitic mass] 28.1 pg 26. 7 - 34.0 pg [facility] MCHC (RBC) [Mass/Vol] 33.3 g/dL 29.9 - 35.2 g/dL [facility] MCV (RBC) [Entitic vol] 84.4 fL 81.0 - 99.0 fL [facility] MONOCYTES ABSOLUTE AUTO 0.7 N [facility] Monocytes/100 WBC (Bld) 6.8 % 1.7 - 12.0 % [facility] NEUTROPHILS ABSOLUTE AUTO 8 High [facility] Neutrophils/100 WBC (Bld) 75.1 % High 43.0 - 75.0 % [facility] Platelet mean volume (Bld) [Entitic vol] 9.2 fL Low 9.5 - 13.5 fL [facility] TBH EO # 0.1 [facility] TBH PLT 218 [facility] TBH RBC 3.98 Low [facility] TB WBC 10.7 [facility] Protein / creatinine ratio, urineon 05-08-2024 Protein/Creatinine (U) [Mass ratio] 300 mg/g High [facility] Protein/Creatinine (U) [Mass ratio] 0.3 mg/g High [facility] Protein/Creatinine (U) [Mass ratio]on 05-08-2024 Creatinine (U) [Mass/Vol] 40 mg/dL 20 - 275 mg/dL [facility] Interpretation and review of laboratory results Abnormal [facility] Protein (U) [Mass/Vol] 12 mg/dL 5 - 24 mg/dL [facility] Performing Organization Information Site ID: QPT Name: [employer] [facility] Address: [address] , [address] [place] [phone] Director: Filemon Chadwick MD [facility] TB TOTAL PROTEIN 24 HOUR UR INEon 03-06-2024 Interpretation and review of laboratory results Abnormal [facility] Protein (U) [Mass/Vol] 10.8 mg/dL NINF - 11.9 mg/dL [facility] TOTAL PROTEIN 24 HOUR URINE 280.8 [facility] TOTAL VOLUME 24 HOUR URINE 2600 mL/24hr [facility] ALL CBC WITH AUTO DIFFon BASOPHILS ABSOLUTE AUTO 0 [address] [facility] Basophils/100 WBC (Bld) 0.2 % 0.2 - 2.0 % [facility] Eosinophils/100 WBC (Bld) 0.8 % Low 0.9 - 7.0 % [facility] Erythrocyte distribution width (RBC) [Ratio] 12.7 % 11.0 - 15.0 % [facility] Hematocrit (Bld) [Volume fraction] 35.1 % Low 36.0 - 48.0 % [facility] Hemoglobin (Bld) [Mass/Vol] 11.9 g/dL Low 12.0 - 16.0 g/dL [facility] IMMATURE GRANULOCYTES ABS AUTO 0.07 High [facility] Immature granulocytes/100 WBC (Bld) 0.7 % High 0.0 - 0.5 % [facility] Interpretation and review of laboratory results Abnormal [facility] LYMPHOCYTES ABSOLUTE AUTO 1.5 [facility] Lymphocytes/100 WBC (Bld) 13.9 % Low 20.5 - 60.0 % [facility] MCH (RBC) [Entitic mass] 30.1 pg 26. 7 - 34.0 pg [facility] MCHC (RBC) [Mass/Vol] 33.9 g/dL 29.9 - 35.2 g/dL [facility] MCV (RBC) [Entitic vol] 88.9 fL 81.0 - 99.0 fL [facility] MONOCYTES ABSOLUTE AUTO 0.6 N [facility] Monocytes/100 WBC (Bld) 6.1 % 1.7 - 12.0 % [facility] NEUTROPHILS ABSOLUTE AUTO 8.2 High [facility] Neutrophils/100 WBC (Bld) 78.3 % High 43.0 - 75.0 % [facility] Platelet mean volume (Bld) [Entitic vol] 9.4 fL Low 9.5 - 13.5 fL [facility] TBH EO # 0.1 [facility] TB PLT 254 [facility] TB RBC 3.95 Low [facility] WBC 10.5 [facility] Bacteria identified Cx Nom ( U)on 11-10-2023 Appearance (U) Adequate [facility] Bacteria identified Cx Nom (Isol) SEE NOTE Abnormal [facility] Comment on above: 10,000-49,000 CFU/mL of [...] management of women. Internal identifier for Provider [id number] [facility] Interpretation and review of laboratory results Abnormal [facility] Specimen source Nom (Unsp spec) URINE [facility] STATUS FINAL [facility] Laboratory - Drug toxicology on 11-10-2023 7-Nobvitmejv-5,5-Dimethy l-3,3-Diphenylpyrrolidin e (EDDP) Ql (U) Negative NINF - 100 ng/mL [facility] Amphetamines Ql (U) Negative NINF - 5 00 ng/mL [facility] Barbiturates Ql (U) Negative NINF - 3 00 ng/mL [facility] Benzodiazepines Ql (U) Negative NINF - 100 ng/mL [facility] Benzoylecgonine Ql (U) Negative NINF - 150 ng/mL [facility] Opiates Ql (U) Negative NINF - 100 ng/mL [facility] oxyCODONE Ql (U) Negative NINF - 100 ng/mL [facility] Phencyclidine Ql (U) Negative NINF - 25 ng/mL [facility] Tetrahydrocannabinol Screen method >20 ng/mL Ql (U) Negative NINF - 20 ng/mL [facility] Laboratory - Urinalysison Bacteria LM.HPF (Urine sed) [#/Area] NONE SEEN NONE SEEN /HPF [facility] Epithelial cells.squamous LM.HPF (Urine sed) [#/Area] 0-5 < OR = 5 /HPF [facility] Hyaline casts (Urine sed) [#/Area] NONE SEEN NONE SEEN /LPF [facility] RBC LM.HPF (Urine sed) [#/Area] NONE SEEN < OR = 2 /HPF [facility] WBC LM.HPF (Urine sed) [#/Area] NONE SEEN < OR = 5 /HPF [facility] N. gonorrhoeae DNA YULIYA+probe Ql (Cervical mucus)on 11-10-2023 C. trachomatis rRNA YULIYA+probe Ql (Unsp spec) Not detected NOT DETECTED [facility] N. gonorrhoeae rRNA YULIYA+probe Ql (Unsp spec) Not detected NOT DETECTED [facility] No Panel Informationon 11-09 (ALWAYS MESSAGE) [facility] Comment on above: See Note 1 Note 1 This drug testing is for medical treatment only. Analysis was performed as non-forensic testing and these results should be used only by healthcare providers to render diagnosis or treatment, or to monitor progress of medical conditions. For assistance with interpreting these drug results, please contact a [employer] Toxicology Specialist: [phone] ( ), M-F, 8am-6pm EST. The analytical perfo rmance characteristics of this assay, when used to test SurePath(TM) specimens have been determined by [employer]. The modifications have not been cleared or approved by the FDA. This assay has been validated pursuant to the CLIA regulations and is used for clinical purposes. For additional information, please refer to https://education.Funding Gates/faq/UKD541 (This link is being provided for information/ educational purposes only.) Performing Organization Information Site ID: QPT Name: [employer] [facility] Address: Stephanie Canas , [address] [place] [phone] Director: Filemon Chadwick MD [facility] CBC panel Auto (Bld)on 11-07 Erythrocyte distribution width (RBC) [Ratio] 12.8 % 11.0 - 15.0 % [facility] Hematocrit (Bld) [Volume fraction] 42.4 % 35.0 - 45.0 % [facility] Hemoglobin (Bld) [Mass/Vol] 14.2 g/dL 11.7 - 15.5 g/dL [facility] MCH (RBC) [Entitic mass] 30 pg 27. 0 - 33.0 pg [facility] MCHC (RBC) [Mass/Vol] 33.5 g/dL 32.0 - 36.0 g/dL [facility] Comment on above: For adults, a slight decrease in the calculated MCHC value (in the range of 30 to 32 g/dL) is most likely not clinically significant; however, it should be interpreted with caution in correlation with other red cell parameters and the patient's clinical condition. MCV (RBC) [Entitic vol] 89.5 fL 80.0 - 100.0 fL [facility] Platelet mean volume (Bld) [Entitic vol] 9.2 fL 7.5 - 12.5 fL [facility] Platelets (Bld) [#/Vol] 269 10*3/uL [facility] RBC (Bld) [#/Vol] 4.74 10*6/uL [facility] WBC (Bld) [#/Vol] 7.6 10*3/uL [facility] Laboratory - Blood bankon ABO group Nom (Bld) A [facility] Blood group antibody screen Ql Detected [facility] Comment on above: Reference range No antibodies detected This assay is a screening test for the detection of red blood cell antibodies. The test is not to be used for pretransfusion screening or for the medical management of an alloimmunized . Rh Nom (Bld) Positive [facility] Comment on above: For additional information, please refer to http://education.Control de Pacientes/faq/DUJ920 (This link is being provided for informational/ educational purposes only.) Laboratory - Chemistry and C hemistry - challengeon 11-08-2023 TSH Qn 1.09 m[IU]/L mIU/L [facility] Comment on above: Reference Range > or = 20 Years 0.40-4.50 Ranges First trimester 0.26-2.66 Second trimester 0.55-2.73 Third trimester 0.43-2.91 Laboratory - Hematology and Cell countson 11-08-2023 HbA1c (Bld) [Mass fraction] 5 % NINF [facility] Comment on above: For [...] HBV surface Ag IA Ql Non-Reactive NON-REACTIVE [facility] Comment on above: For additional information, please refer to http://in2nite.Funding Gates/faq/FMC955 (This link is being provided for informational/ educational purposes only.) HCV Ab IA Ql Non-Reactive NON-REACTIVE [facility] Comment on above: HCV antibody was non-reactive. There is no laboratory evidence of HCV infection. In most cases, no further action is required. However, if recent HCV exposure is suspected, a test for HCV RNA (test code 60206) is suggested. For additional information please refer to http://in2nite.[employer]/faq/FOK91p2 (This link is being provided for informational/ educational purposes only.) HIV 1+2 Ab+HIV1 p24 Ag IA Ql Non-Reactive NON-REACTIVE [facility] Comment on above: HIV-1 [...] purpose. For additional information please refer to http://education.Funding Gates/faq/FRM316 (This link is being provided for informational/ educational purposes only.) The performance of this assay has not been clinically validated in patients less than 2 years old. Reagin Ab RPR Ql (S) Non-Reactive NON-REACTIVE [facility] Rubella virus IgG Qn (S) 1.68 [IU]/mL Index [facility] Comment on above: Index Interpretation ----- <0.90 Not consistent with immunity 0.90-0.99 Equivocal > or = 1.00 Consistent with immunity The presence of rubella IgG antibody suggests immunization or past or current infection with rubella virus. No Panel Informationon 11-07 MULTIPLE COLLECTION TIMES FOR SAME TEST TYPE. [facility] Organization Information Site ID: QPT Name: [employer] [facility] Address: [address] [place] [address], [address] [place] [phone] Director: Filemon Chadwick MD [facility] Chlamydia/GC by PCR ThinPrep fluidon 11-07-2023 Chlamydia Dna(Pcr) Negative [facility] Gonorrhoeae Dna(Pcr) Negative [facility] Drug Screen, Urineon 024 Amphetamine/Methamphetam ine Negative [facility] Opiates Negative [facility] HCG ( test) Ql (U)o n 11-07-2023 Interpretation and review of laboratory results Abnormal [facility] Preg Test, Ur Positive [facility] HIV 1&2 AB/AG Screen (P24 AG )on 11-07-2023 HIV 1&2 AB/AG Non-Reactive [facility] Hemoglobin A1con 11-07-2023 HbA1c (Bld) [Mass fraction] 5 % 4.0 - 6.0 % [facility] No Panel Informationon 11-06 [facility] Type and screenOrdered By: Jayro Saleh on 11-07-2023 Abo/Rh(D) Positive [facility] US OB < 14 WEEKS EARLYon US [...] [#/Vol] 0.03 10*3/uL Normal 0.00-0.20 [facility] Specialist Comment on above: Performed By: #### C BCAD, LIPD, TSH reflex FT4, CMP #### [facility] [address] [place], [place] [id number] Basophils/100 WBC (Bld) 0.3 % Normal N [facility] Specialist Comment on above: Performed By: #### C BCAD, LIPD, TSH reflex FT4, CMP #### [facility] [address], [place] [id number] Eosinophils (Bld) [#/Vol] 0.07 10*3/uL Normal 0.02-0.50 [facility] Specialist Comment on above: Performed By: #### C BCAD, LIPD, TSH reflex FT4, CMP #### [facility] [address], [place] [id number] Eosinophils/100 WBC (Bld) 0.6 % Normal [facility] Specialist Comment on above: Performed By: #### C BCAD, LIPD, TSH reflex FT4, CMP #### [facility] [address], [place] [id number] Erythrocyte distribution width (RBC) [Ratio] 12.4 % Normal 11.0-15.0 [employer] [employer] Comment on above: Performed By: #### C BCAD, LIPD, TSH reflex FT4, CMP #### [facility] [address], [place] [id number] Hematocrit (Bld) [Volume fraction] 37.9 % Normal 35.0-47.0 [facility] Specialist Comment on above: Performed By: #### C BCAD, LIPD, TSH reflex FT4, CMP #### [facility] [address] [place], [place] [id number] Hemoglobin (Bld) [Mass/Vol] 12.6 g/dL Normal 11.6-15.5 [facility] Specialist Comment on above: Performed By: #### C BCAD, LIPD, TSH reflex FT4, CMP #### [facility] [address] [place], [place] [id number] Lymphocytes (Bld) [#/Vol] 1.5 10*3/uL Normal 0.9-3.9 [facility] Specialist Comment on above: Performed By: #### C BCAD, LIPD, TSH reflex FT4, CMP #### [facility] [address] [place], [place] [id number] Lymphocytes/100 WBC (Bld) 12.4 % Normal [facility] Specialist Comment on above: Performed By: #### C BCAD, LIPD, TSH reflex FT4, CMP #### [facility] [address] [place], [place] [id number] MCH (RBC) [Entitic mass] 29.1 pg Normal 27.0-33.0 [facility] Specialist Comment on above: Performed By: #### C BCAD, LIPD, TSH reflex FT4, CMP #### [facility] [address], [place] [id number] MCHC (RBC) [Mass/Vol] 33.2 g/dL Normal 32.0-36.0 [facility] [facility] Comment on above: Performed By: #### C BCAD, LIPD, TSH reflex FT4, CMP #### [facility] [address], [place] [id number] MCV (RBC) [Entitic vol] 88 fL Normal 80-100 N [facility] Specialist Comment on above: Performed By: #### C BCAD, LIPD, TSH reflex FT4, CMP #### [facility] [address], [place] [id number] Monocytes (Bld) [#/Vol] 0.9 10*3/uL Normal 0.2-0.9 [facility] Specialist Comment on above: Performed By: #### C BCAD, LIPD, TSH reflex FT4, CMP #### [facility] [address], [place] [id number] Monocytes/100 WBC (Bld) 7.5 % Normal N [facility] Comment on above: Performed By: #### C BCAD, LIPD, TSH reflex FT4, CMP #### [facility] [address], [place] [id number] Neutrophils (Bld) [#/Vol] 9.4 10*3/uL High 1.5-7.8 [facility] Specialist Comment on above: Performed By: #### C BCAD, LIPD, TSH reflex FT4, CMP #### [facility] [address], [place] [id number] Neutrophils/100 WBC (Bld) 78.7 % Normal [facility] Specialist Comment on above: Performed By: #### C BCAD, LIPD, TSH reflex FT4, CMP #### [facility] [address], [place] [id number] Platelet mean volume (Bld) [Entitic vol] 9.80 fL Normal 7.50-12.50 [facility] Comment on above: Performed By: #### C BCAD, LIPD, TSH reflex FT4, CMP #### [facility] [address], [place] [id number] Platelets (Bld) [#/Vol] 308 10*3/uL Normal 140-400 [facility] Specialist Comment on above: Performed By: #### C BCAD, LIPD, TSH reflex FT4, CMP #### [facility] [address], [place] [id number] RBC (Bld) [#/Vol] 4.33 10*6/uL Normal 3.90-5.20 [facility] Comment on above: Performed By: #### C BCAD, LIPD, TSH reflex FT4, CMP #### [facility] [address], [place] [id number] RDW-SD 39.6 fL Normal 37.0-50.0 [facility] Comment on above: Performed By: #### C BCAD, LIPD, TSH reflex FT4, CMP #### [facility] [address], [place] [id number] WBC (Bld) [#/Vol] 11.9 10*3/uL High 3.8-11.0 [facility] Comment on above: Performed By: #### C BCAD, LIPD, TSH reflex FT4, CMP #### [facility] [address], [place] [id number] [facility] 01-27-2021 Albumin [Mass/Vol] 4.9 g/dL Normal 3.6-5.1 [facility] Comment on above: Performed By: #### C BCAD, LIPD, TSH reflex FT4, CMP #### [facility] [address], [place] [id number] Albumin/Globulin [Mass ratio] 1.9 {ratio} Normal 1.0-2.5 [facility] Specialist Comment on above: Performed By: #### C BCAD, LIPD, TSH reflex FT4, CMP #### [facility] [address], [place] [id number] ALP [Catalytic activity/Vol] 73 U/L Normal 35-119 [facility] Specialist Comment on above: Performed By: #### C BCAD, LIPD, TSH reflex FT4, CMP #### [facility] [address], [place] [id number] ALT [Catalytic activity/Vol] 9 U/L Normal 6-33 [facility] Specialist Comment on above: Result Comment: 01/06 Female reference range changed. Performed By: #### C BCAD, LIPD, TSH reflex FT4, CMP #### [facility] [address], [place] [id number] Anion gap [Moles/Vol] 16 mmol/L Normal 12-20 [facility] Comment on above: Result Comment: Effe ctive 02/11/2019 reference range changed. Performed By: #### C BCAD, LIPD, TSH reflex FT4, CMP #### [facility] [address], [place] [id number] AST [Catalytic activity/Vol] 14 U/L Normal 9-34 [facility] Comment on above: Performed By: #### C BCAD, LIPD, TSH reflex FT4, CMP #### [facility] [address], [place] [id number] Bilirubin [Mass/Vol] 0.90 mg/dL Normal 0.30-1.20 [facility] Comment on above: Performed By: #### C BCAD, LIPD, TSH reflex FT4, CMP #### [facility] [address], [place] [id number] BUN/CREA 18 Ratio Normal 6-22 [facility] Comment on above: Performed By: #### C BCAD, LIPD, TSH reflex FT4, CMP #### [facility] [address], [place] [id number] Calcium [Mass/Vol] 10.1 mg/dL Normal 8.6-10.2 [facility] Comment on above: Performed By: #### C BCAD, LIPD, TSH reflex FT4, CMP #### [facility] [address], [place] [id number] Chloride [Moles/Vol] 105 mmol/L Normal 98-107 [facility] Comment on above: Performed By: #### C BCAD, LIPD, TSH reflex FT4, CMP #### [facility] [address], [place] [id number] CO2 [Moles/Vol] 24 mmol/L Normal 20-31 [facility] Comment on above: Performed By: #### C BCAD, LIPD, TSH reflex FT4, CMP #### [facility] [address], [place] [id number] Creatinine [Mass/Vol] 0.6 mg/dL Normal 0.6-1.4 [facility] Comment on above: Performed By: #### C BCAD, LIPD, TSH reflex FT4, CMP #### [facility] [address], [place] [id number] eGFRAA 149 mL/min/1.73m2 Normal >60 [facility] Specialist Comment on above: Performed By: #### C BCAD, LIPD, TSH reflex FT4, CMP #### [facility] [address], [place] [id number] eGFRNAA 123 mL/min/1.73m2 Normal >60 [facility] Specialist Comment on above: Performed By: #### C BCAD, LIPD, TSH reflex FT4, CMP #### [facility] [address], [place] [id number] Globulin (S) [Mass/Vol] 2.6 g/dL Normal 1.9-3.7 [facility] Comment on above: Performed By: #### C BCAD, LIPD, TSH reflex FT4, CMP #### [facility] [address], [place] [id number] Glucose [Mass/Vol] 88 mg/dL Normal 65-99 [employer] [place] [employer] Manager Comment on above: Result Comment: For FASTING Glucose --- ADA reference ranges: Normal 65-99 mg/dl Prediabetes 100-125 Diabetes >/= 126 Performed By: #### C BCAD, LIPD, TSH reflex FT4, CMP #### [facility] [address], [place] [id number] Potassium [Moles/Vol] 4.1 mmol/L Normal 3.5-5.5 [facility] Specialist Comment on above: Performed By: #### C BCAD, LIPD, TSH reflex FT4, CMP #### [facility] [address], [place] [id number] Protein [Mass/Vol] 7.5 g/dL Normal 6.1-8.1 [employer] [place] [employer] Manager Comment on above: Performed By: #### C BCAD, LIPD, TSH reflex FT4, CMP #### [facility] [address], [place] [id number] Sodium [Moles/Vol] 140 mmol/L Normal 135-146 [employer] [place] [employer] Manager Comment on above: Performed By: #### C BCAD, LIPD, TSH reflex FT4, CMP #### [facility] [address], [place] [id number] Urea nitrogen [Mass/Vol] 11 mg/dL Normal 7-25 [facility] Specialist Comment on above: Performed By: #### C BCAD, LIPD, TSH reflex FT4, CMP #### [facility] [address], [place] [id number] Lipid Panelon 01-27-2021 Cholesterol [Mass/Vol] 152 mg/dL Normal 125-200 [facility] Comment on above: Result Comment: Low risk < 200mg/dL Borderline risk 201-239 mg/dl High risk > or equal to 240 Performed By: #### C BCAD, LIPD, TSH reflex FT4, CMP #### [facility] [address], [place] [id number] Cholesterol in HDL [Mass/Vol] 50 mg/dL Normal >40 [facility] Specialist Comment on above: Result Comment: High Cardiovascular Risk HDL <40 mg/dL Low Cardiovascular Risk HDL > or equal to 60 mg/dl Performed By: #### C BCAD, LIPD, TSH reflex FT4, CMP #### [facility] [address], [place] [id number] Cholesterol in LDL [Mass/Vol] 91 mg/dL Normal [facility] Comment on above: Result Comment: LDL ATP III CLASSIFICATION LDL less than 100 mg/dl Optimal LDL 100-129 mg/dl Near or above optimal LDL 130-159 Borderline high LDL 160-189 High LDL greater than 189 mg/dl Very High Performed By: #### C BCAD, LIPD, TSH reflex FT4, CMP #### [facility] [address], [place] [id number] Cholesterol in VLDL [Mass/Vol] 11 mg/dL Normal [facility] Specialist Comment on above: Performed By: #### C BCAD, LIPD, TSH reflex FT4, CMP #### [facility] [address], [place] [id number] Cholesterol.total/Choles terol in HDL [Mass ratio] 3 {ratio} Normal [facility] Specialist Comment on above: Performed By: #### C BCAD, LIPD, TSH reflex FT4, CMP #### [facility] [address], [place] [id number] Triglyceride [Mass/Vol] 55 mg/dL Normal 30-150 N [facility] Assurance Sourcing Manager Comment on above: Result Comment: TRIG ATPIII CLASSIFICATIONS TRIG less than 150 mg/dl Normal TRIG 150-199 mg/dl Borderline High TRIG 200-500 mg/dl High TRIG greather than 500 mg/dl Very High Performed By: #### C BCAD, LIPD, TSH reflex FT4, CMP #### [facility] [address], [place] [id number] Q - CULTURE,URINE,ROUTINEon 01-27-2021 CULTURE, URINE, ROUTINE SEE NOTE Normal N [facility] Assurance Sourcing Manager Comment on above: Order Comment: [facility] performed at: [employer], [employer] [facility], [address] [place] [address], [address] [place] [address], [id number], Earring Maker: Filemon Chadwick MD [facility] Collection Date/Time: [facility] Results Received Date/Time: [facility] Reported Date/Time: Result Comment: CULT URE, URINE, ROUTINE Micro Number: [id number] Test Status: Final Specimen Source: Urine Specimen Quality: Adequate Result: Growth of mixed jairo was isolated, suggesting probable contamination. No further testing will be performed. If clinically indicated, recollection using a method to minimize contamination, with prompt transfer to Urine Culture Transport Tube, is recommended. Performed By: #### [id number] #### [facility] Default [address] [place] [address] TSH w/ Reflex to Free T4on 1 03-30-2020 TSH 0.733 uIU/mL Normal 0.400-4.500 [facility] Assurance Sourcing Manager Comment on above: Performed By: #### C BCAD, LIPD, TSH reflex FT4, CMP #### [facility] [address], [place] [id number] Vital Signs Date Time Vital Sign Value Performing Clinician Facility 05-27-2024 11:05-0400 Body mass index (BMI) [Ratio] 32.75 kg/m2 Kimberly Barajas CNM Work Phone: [facility] 05-27-2024 11:05-0400 Body weight 93.44 kg Kimberly Floro CNM Work Phone: [facility] 05-27-2024 11:05-0400 Diastolic blood pressure 90 mm[Hg] Kimberly Floro CNM Work Phone: [facility] 05-27-2024 11:05-0400 Systolic blood pressure 140 mm[Hg] Kimberly Floro CNM Work Phone: [facility] 05-21-2024 11:29-0400 Body mass index (BMI) [Ratio] 32.75 kg/m2 Kimberly Floro CNM Work Phone: [facility] 05-21-2024 11:29-0400 Body weight 93.44 kg Kimberly Floro CNM Work Phone: [facility] 05-21-2024 11:29-0400 Diastolic blood pressure 80 mm[Hg] Kimberly Floro CNM Work Phone: [facility] 05-21-2024 11:29-0400 Systolic blood pressure 128 mm[Hg] Kimberly Floro CNM Work Phone: [facility] 05-16-2024 11:32-0400 Body mass index (BMI) [Ratio] 32.43 kg/m2 Kimberly Floro CNM Work Phone: [facility] 05-16-2024 11:32-0400 Body weight 92.53 kg Kimberly Floro CNM Work Phone: [facility] 05-16-2024 11:32-0400 Diastolic blood pressure 90 mm[Hg] Kimberly Floro CNM Work Phone: [facility] 05-16-2024 11:32-0400 Systolic blood pressure 130 mm[Hg] Kimberly Floro CNM Work Phone: [facility] 05-06-2024 17:54-0400 Body mass index (BMI) [Ratio] 32.91 kg/m2 Kimberly Floro CNM Work Phone: [facility] 05-06-2024 17:54-0400 Body weight 93.89 kg Kimberly Coronao CNM Work Phone: [facility] 05-06-2024 17:54-0400 Diastolic blood pressure 90 mm[Hg] Kimberly Coronao CNM Work Phone: [facility] Comment on above: 2nd BP 140/90 3rd 136/74 05-06-2024 17:54-0400 Systolic blood pressure 162 mm[Hg] Kimberly Cjo CNM Work Phone: [facility] Comment on above: 2nd BP 140/90 3rd 136/74 04-09-2024 09:56-0500 Body mass index (BMI) [Ratio] 31.64 kg/m2 Kimberly Coronao CNM Work Phone: [facility] 04-09-2024 09:56-0500 Body weight 90.27 kg Kimberly Coronao CNM Work Phone: [facility] 04-09-2024 09:56-0500 Diastolic blood pressure 80 mm[Hg] Kimberly Cjo CNM Work Phone: [facility] 04-09-2024 09:56-0500 Systolic blood pressure 118 mm[Hg] Kimberly Cjo CNM Work Phone: [facility] 03-28-2024 13:16-0500 Body height 165.1 cm Raheem Mayes MD Work Phone: [facility] 03-28-2024 13:16-0500 Body mass index (BMI) [Ratio] 32.65 kg/m2 Raheem Mayes MD Work Phone: [facility] 03-28-2024 13:16-0500 Body weight 89 kg Raheem Mayes MD Work Phone: [facility] 03-28-2024 13:16-0500 Diastolic blood pressure 85 mm[Hg] Raheem Mayes MD Work Phone: [facility] 03-28-2024 13:16-0500 Heart rate 94 /min Raheem Mayes MD Work Phone: [facility] 03-28-2024 13:16-0500 Systolic blood pressure 125 mm[Hg] Raheem Mayes MD Work Phone: [facility] 03-05-2024 13:00-0500 Body mass index (BMI) [Ratio] 31 kg/m2 Kimberly Floro CNM Work Phone: [facility] 03-05-2024 13:00-0500 Body weight 88.45 kg Kimberly Floro CNM Work Phone: [facility] 03-05-2024 13:00-0500 Diastolic blood pressure 100 mm[Hg] Kimberly Floro CNM Work Phone: [facility] Comment on above: 140/82 140/86 03-05-2024 13:00-0500 Systolic blood pressure 170 mm[Hg] Kimberly Floro CNM Work Phone: [facility] Comment on above: 140/82 140/86 02-06-2024 11:29-0500 Body mass index (BMI) [Ratio] 30.21 kg/m2 Kimberly Floro CNM Work Phone: [facility] 02-06-2024 11:29-0500 Body weight 86.18 kg Kimberly Floro CNM Work Phone: [facility] 02-06-2024 11:29-0500 Diastolic blood pressure 80 mm[Hg] Kimberly Floro CNM Work Phone: [facility] 02-06-2024 11:29-0500 Systolic blood pressure 118 mm[Hg] Kimberly Floro CNM Work Phone: [facility] 01-03-2024 11:25-0500 Body mass index (BMI) [Ratio] 29.25 kg/m2 Kimberly Floro CNM Work Phone: [facility] 01-03-2024 11:25-0500 Body weight 83.46 kg Kimberly Floro CNM Work Phone: [facility] 01-03-2024 11:25-0500 Diastolic blood pressure 80 mm[Hg] Kimberly Barajas CNM Work Phone: [facility] 01-03-2024 11:25-0500 Systolic blood pressure 120 mm[Hg] Kimberly Barajas CNM Work Phone: [facility] 12-07-2023 10:28-0400 Body mass index (BMI) [Ratio] 29.73 kg/m2 Kimberly Barajas CN Work Phone: [facility] 12-07-2023 10:28-0400 Body weight 84.82 kg Kimberly Barajas CNM Work Phone: [facility] 11-07-2023 10:28-0400 Body mass index (BMI) [Ratio] 29.09 kg/m2 Kimberly Barajas CNM Work Phone: [facility] 11-07-2023 10:28-040 Body weight 83.01 kg Kimberly Barajas CNM Work Phone: [facility] 11-28-2016 17:31-0400 BMI (Body Mass Index) 27.28 kg/m2 Cathi IbarraCherylJenn [facility] Work Phone: 11-28-2016 17:31-0400 Body Temperature 99.19 [degF] Cathi Anell [facility] Work Phone: 11-28-2016 17:31-0400 BP Diastolic 93 mm[Hg] Cathi Serrano [facility] Work Phone: 11-28-2016 17:31-0400 BP Systolic 143 mm[Hg] Cathi Serrano [facility] Work Phone: 11-28-2016 17:31-0400 Height 167.6 cm Cathi Serrano [facility] Work Phone: 11-28-2016 17:31-0400 Pulse (Heart Rate) 76 /min Cathi Serrano [facility] Work Phone: 11-28-2016 17:31-0400 Pulse Oximetry 98 % Cathi Serrano [facility] Work Phone: 11-28-2016 17:31-0400 Respiratory Rate 16 /min Cathi Serrano [facility] Work Phone: 11-28-2016 17:31-0400 Weight 76.66 kg Cathi Serrano [facility] Work Phone: Encounters Encounter Date Encounter Type Care Provider Facility Start: 05-27-2024 End: 05-27-2024 Bamboo flowsheet Kimberly L Floro CNM Work Phone: [facility] Start: 05-27-2024 End: 05-27-2024 Bamboo flowsheet Kimberly L Floro CNM Work Phone: [facility] Start: 05-27-2024 End: 05-27-2024 Subsequent care visit Kimberly L Floro CNM Work Phone: [facility] Comment on above: Encounter for superv ision of other normal , third trimester (Primary Dx); Elevated blood pressure affecting in third trimester, antepartum; Group B streptococcal infection; Gestational hypertension, third trimester Start: 05-21-2024 End: 05-21-2024 Bamboo flowsheet Kimberly L Floro CNM Work Phone: [facility] Start: 05-21-2024 End: 05-21-2024 Bamboo flowsheet Kimberly L Floro CNM Work Phone: [facility] Start: 05-21-2024 End: 05-21-2024 Subsequent care visit Kimberly L Floro CNM Work Phone: [facility] Comment on above: Encounter for superv ision of other normal , third trimester (Primary Dx); Gestational hypertension, third trimester Start: 05-21-2024 End: 05-21-2024 ambulatory KIMBERLY L FLORO Not Available Start: 05-16-2024 End: 05-16-2024 Bamboo flowsheet Kimberly L Floro CNM Work Phone: [facility] Start: 05-16-2024 End: 05-16-2024 Bamboo flowsheet Kimberly Barajas CNM Work Phone: [facility] Start: 05-16-2024 End: 05-16-2024 ambulatory KIMBERLY BARAJAS Not Available Start: 05-16-2024 End: 05-16-2024 Subsequent care visit Kimberly Barajas CNM Work Phone: [facility] Comment on above: Elevated blood press ure affecting in third trimester, antepartum (Primary Dx); Encounter for supervision of other normal , third trimester Start: 05-09-2024 End: 05-09-2024 Clinisync Result Encounter Kimberly Barajas CNM Work Phone: [facility] Unsolicited Start: 05-09-2024 End: 05-09-2024 Clinisync Result Encounter Kimberly Barajas CNM Work Phone: [facility]solic[facility] Start: 05-08-2024 End: 05-08-2024 Clinisync Result Encounter Kimberly Barajas CNM Work Phone: [facility]solic[facility] Start: 05-08-2024 End: 05-08-2024 Clinisync Result Encounter Kimberly Barajas CNM Work Phone: [facility] Start: 05-07-2024 End: 05-08-2024 External Result Encounter Kimberly Barajas CNM Work Phone: [facility]solic[facility] Start: 05-07-2024 End: 05-08-2024 External Result Encounter Kimberly Barajas CNM Work Phone: [facility] Unsolic[facility] Start: 05-06-2024 End: 05-06-2024 Subsequent care visit Kimberly Barajas CNM Work Phone: [facility] Comment on above: Elevated blood press ure affecting in third trimester, antepartum (Primary Dx) Start: 05-06-2024 End: 05-06-2024 ambulatory KIMBERLY L FLORO Not Available Start: 05-06-2024 End: 05-06-2024 Bamboo flowsheet Kimberly L Floro CNM Work Phone: [facility] Start: 05-06-2024 End: 05-06-2024 Bamboo flowsheet Kimberly L Floro CNM Work Phone: [facility] Start: 04-09-2024 End: 04-09-2024 Bamboo flowsheet Kimberly L Floro CNM Work Phone: [facility] Start: 04-09-2024 End: 04-09-2024 Bamboo flowsheet Kimberly L Floro CNM Work Phone: [facility] Start: 04-09-2024 End: 04-09-2024 Subsequent care visit Kimberly L Floro CNM Work Phone: [facility] Comment on above: Encounter for superv ision of other normal , third trimester (Primary Dx) Start: 04-09-2024 End: 04-09-2024 ambulatory KIMBERLY L FLORO Not Available Start: 03-28-2024 End: 03-28-2024 Office consultation new/estab patient 60 min Raheem Mayes MD Work Phone: [facility] [place] Comment on above: Hx of preeclampsia, prior , currently (Primary Dx); Elevated BP without diagnosis of hypertension; 28 weeks gestation of Start: 03-28-2024 End: 03-28-2024 ambulatory KIMBERLY CJO [facility] Start: 03-12-2024 End: 03-12-2024 ambulatory KIMBERLY L FLORO Not Available Start: 03-12-2024 End: 03-12-2024 Bamboo flowsheet Kimberly L Floro CNM Work Phone: [facility] Start: 03-12-2024 End: 03-12-2024 Bamboo flowsheet Kimberly L Floro CNM Work Phone: [facility] Start: 03-08-2024 End: 03-08-2024 Chart abstracting Raheem Mayes MD Work Phone: [facility] Start: 03-06-2024 End: 03-06-2024 Clinisync Result Encounter Kimberly Coronao CNM Work Phone: [facility] Unsolicited Start: 03-06-2024 End: 03-06-2024 Clinisync Result Encounter Kimberly Coronao CNM Work Phone: [facility] Unsolicited Start: 03-05-2024 End: 03-05-2024 Clinisync Result Encounter Kimberly Coronao CNM Work Phone: [facility] Unsolicited Start: 03-05-2024 End: 03-05-2024 Clinisync Result Encounter Kimberly Coronao CNM Work Phone: [facility] Unsolicited Start: 03-05-2024 End: 03-05-2024 Subsequent care visit Kimberly Coronao CNM Work Phone: [facility] Comment on above: Encounter for superv ision of other normal , second trimester (Primary Dx); Elevated blood pressure affecting in third trimester, antepartum Start: 03-05-2024 End: 03-05-2024 ambulatory KIMBERLY CORONAO Not Available Start: 02-06-2024 End: 02-06-2024 Bamboo flowsheet Kimberly Irene Coronao CNM Work Phone: [facility] Start: 02-06-2024 End: 02-06-2024 Bamboo flowsheet Kimberly Irene Coronao CNM Work Phone: [facility] Start: 02-06-2024 End: 02-06-2024 Subsequent care visit Kimberly Coronao CNM Work Phone: [facility] Comment [...] 01-03-2024 End: 01-03-2024 Subsequent care visit Kimberly L Floro CNM [...] Start: 11-14-2023 End: 11-16-2023 Telephone encounter Caitlin Vargas Physician s Obstetrics/Gynecology Start: 11-07-2023 End: 11-07-2023 Bamboo flowsheet Kimberly L Floro CNM Work Phone: [facility] Start: 11-07-2023 End: 11-07-2023 Bamboo flowsheet Kimberly Coronao CNM Work Phone: [facility] Start: 11-07-2023 End: 11-07-2023 Initial care visit Kimberly Coronao CNM Work Phone: [facility] Comment on above: GA: 8w3d Start: 11-07-2023 End: 11-07-2023 ambulatory KIMBERLY Irene FLORO Not Available Start: 10-31-2023 End: 10-31-2023 Initial care visit Carline Escobar Tonny [employer] PROFESSOR-DIRECT SERVICE WORKER Work Phone: [facility]ne[facility] Comment on above: First trimester preg tomeka (Primary Dx) Start: 10-31-2023 End: 10-31-2023 ambulatory CARLINELyndon DIAZ [facility] Start: 09-21-2023 End: 09-21-2023 ambulatory ADENIKE PUMP Not Available Start: 06-22-2023 End: 06-22-2023 ambulatory ADENIKE PUMP Not Available Start: 11-28-2016 End: 11-28-2016 Ambulatory CATHI SERRANO [facility] Start: 11-28-2016 End: 11-28-2016 Office outpatient new 30 minutes Cathi Serrano Work Phone: [facility] Comment on above: External hemorrhoid (Primary Dx) Procedures Date Procedure Procedure Detail Performing Clinician Start: 05-09-2024 US OB GROWTH Kimberly Coronao CNM Work Phone: Start: 05-09-2024 HMHP CBC WITH PLATELET NO DIFFERENTIAL Kimberly Irene Coronao CNM Work Phone: Start: 05-08-2024 ALL CBC WITH AUTO DIFF Kimberly Irene Coronao C NM Work Phone: Start: 05-07-2024 Protein total xcpt refractometry urine Kimberly L Cjo CNM Work Phone: Start: 03-06-2024 TBH TOTAL PROTEIN 24 HOUR URINE Kimberly Irene Coronao CNM Work Phone: Start: 03-05-2024 ALL CBC WITH AUTO DIFF Kimberly L Floro C NM Work Phone: [...] in Cervix by Cyto stain Carline Diaz [employer] PHIL[employer] PROFESSOR-DIRECT SERVICE WORKER Work Phone: Start: 05-26-2022 Adult depression screening assessment Carline Diaz EASTERN PHILOSOPHY PROFESSOR-DIRECT SERVICE WORKER Work Phone: Plan of Treatment Date Care Activity Detail Author Start: 02-10-2032 DTaP,Tdap and Td Vaccines (8 - Td or Tdap) DTaP,Tdap and Td Vaccines (8 - Td or Tdap) [facility] Start: 06-01-2025 Screening for malign ant neoplasm of cervix Pap Smear [facility] Start: 03-28-2025 Adult BMI Screening Adult BMI Screen ing [facility] Start: 03-28-2025 Tobacco Screening Tobacco Screening [facility] Start: 10-30-2024 Tobacco Screening Tobacco Screening [facility] Start: 10-07-2024 Influenza vaccination Influenz a Vaccine (Season Ended) [facility] [facility] Start: 05-27-2024 End: 05-27-2024 Patient encounter procedure [facility] Comment on above: Arrived Start: 05-21-2024 End: 05-21-2024 Patient encounter procedure [facility] Comment on above: Arrived Start: 05-09-2024 End: 05-09-2024 Patient encounter procedure 05/09/2024 2:15 PM EDT Appointment [facility] [address] [facility] [address] [place] [phone] [facility] Start: 05-06-2024 End: 05-06-2024 Patient encounter procedure 05/06/2024 6:00 PM EDT Routine [facility] [address] [place] [phone] Kimberly Barajas, JUDITHM [address] [place], [place] [id number] Arrived [facility] Comment on above: Arrived Start: 05-06-2024 End: 05-06-2025 Protein/Creatinine [Mass Ratio] in Urine Protein / creatinine ratio, urine Lab Routine Elevated blood pressure affecting in third trimester, antepartum Expected: 05/06/2024 (Approximate), Expires: 05/06/2025 [facility] Work Phone: Comment on above: Expected: 05/06/2024 (Approximate), Expires: 05/06/2025 Start: 04-25-2024 End: 04-25-2024 Patient encounter procedure 04/25/2024 9:30 AM EDT Routine [facility] [address] [facility] [place] [phone] Kimberly Barajas, CNM [address] [place] [address] [facility] Start: 04-09-2024 End: 04-09-2024 Patient encounter procedure 04/09/2024 10:00 AM EST Routine [facility] [address] [facility] [place] [phone] Kimberly Barajas, CNM [address] [place] [address] Arrived [facility] Comment on above: Arrived Start: 03-28-2024 End: 03-28-2024 Telemedicine consultation with patient 03/28/2024 2:30 PM EST Telemedicine [facility] [address] [phone] Raheem Mayes MD [address] [facility] 1st [place] [address] [facility] Start: 03-28-2024 End: 03-28-2024 Patient encounter procedure 03/28/2024 1:00 PM EST Appointment [facility] [address] [facility] [address] [place] [address] [facility] Start: 03-20-2024 End: 03-20-2024 Patient encounter procedure 03/20/2024 8:00 AM EST Office Visit [facility] [address] [place] [phone] Pump, Adenike, TIRE SPOTTER [address] [place] [address] [facility] Start: 03-12-2024 End: 03-12-2024 Patient encounter procedure [facility] Comment on above: Arrived Start: 03-05-2024 End: 03-05-2024 Patient encounter procedure 03/05/2024 1:00 PM EST Routine [facility] [address] [place] [phone] Kimberly Barajas, JUDITH [address] [place] [address] [facility] Start: 02-06-2024 End: 02-06-2024 [...] AM EDT Routine [facility] [address] [place] [phone] Kimberly Barajas, JUDITH [address] [place] [address] Arrived [facility] Comment on above: Arrived Start: 11-22-2023 End: 11-22-2023 ambulatory 11/22/2023 8:30 AM EDT Initial [facility] [address] [phone] Carline Diaz, EASTERN PHILOSOPHY PROFESSOR-DIRECT SERVICE WORKER [address] [facility] [place], [place] [id number] [facility] Obstetrics/Gynecolog y Start: 11-07-2023 End: 11-07-2023 Professional / ancillary services management 11/07/2023 11:00 AM EDT Ancillary Procedure [facility] [address] [phone] [facility] Start: 11-07-2023 End: 11-07-2023 ambulatory 11/07/2023 10:30 AM EDT Initial [facility] [address] [place] [address] Kimberly Barajas, CNM [address] [place] [address] Arrived [facility] Comment on above: Arrived Start: 10-31-2023 End: 10-30-2024 US transvaginal for Ultrasound less than 14 weeks with transvaginal Imaging Routine First trimester Expected: 10/31/2023, Expires: 10/30/2024 [facility] Work Phone: Comment on above: Expected: 10/31/2023 , Expires: 10/30/2024 Start: 10-08-2023 COVID-19 Vaccine ( season) COVID-19 Vaccine ( season) [facility] Start: 10-08-2023 COVID-19 Vaccine ( season) COVID-19 Vaccine ( season) [facility] Start: 10-08-2023 Influenza vaccination [facility] Start: 06-02-2023 Adult BMI Screening Adult BMI Screen ing [facility] Start: 05-27-2023 Depression Screening Depression Scre ening [facility] Start: 10-07-2016 Influenza vaccination SEQUENTI AL INFLUENZA VACCINE (#1) [facility] Work Phone: Start: 2014 Adult BMI Follow Up Plan Adult BMI F ollow Up Plan [facility] Start: 06-21-2007 Vaccination for li n papillomavirus HPV VACCINES (1 of 3 - Female 3 Dose Series) [facility] Work Phone: Start: 1996 Tetanus vaccination TETANUS EVERY 10 YR [facility] Work Phone: End: 10-30-2024 Bacteria identified in Urine by Culture Urine Culture Microbiology Routine First trimester 1 Occurrences starting 10/31/2023 until 10/30/2024 [email or web address] Comment on above: 1 Occurrences starti ng 10/31/2023 until 10/30/2024 End: 10-30-2024 CBC panel - Blood by Automated count CBC without diff Lab Routine First trimester 1 Occurrences starting 10/31/2023 until 10/30/2024 [email or web address] Comment on above: 1 Occurrences starti ng 10/31/2023 until 10/30/2024 End: 10-30-2024 Comprehensive metabolic 2000 panel - Serum or Plasma Comprehensive metabolic panel Lab Routine First trimester 1 Occurrences starting 10/31/2023 until 10/30/2024 [email or web address] Comment on above: 1 Occurrences starti ng 10/31/2023 until 10/30/2024 End: 10-30-2024 Drug Screen, Urine Drug Screen, Urine Lab Routine First trimester 1 Occurrences starting 10/31/2023 until 10/30/2024 [email or web address] Comment on above: 1 Occurrences starti ng 10/31/2023 until 10/30/2024 End: 10-30-2024 Glucose 1h post 50g load Glucose 1h post 50g load Lab Routine First trimester 1 Occurrences starting 10/31/2023 until 10/30/2024 [email or web address] Comment on above: 1 Occurrences starti ng 10/31/2023 until 10/30/2024 End: 10-30-2024 HCG, Quantitative, HCG, Quantitative, Lab Routine First trimester 1 Occurrences starting 10/31/2023 until 10/30/2024 [email or web address] Comment on above: 1 Occurrences starti ng 10/31/2023 until 10/30/2024 End: 10-30-2024 Hepatitis panel, acute Hepatitis panel, acute Lab Routine First trimester 1 Occurrences starting 10/31/2023 until 10/30/2024 [email or web address] Comment on above: 1 Occurrences starti ng 10/31/2023 until 10/30/2024 End: 10-30-2024 HIV 1&2 AB/AG Screen (P24 AG) HIV 1&2 AB/AG Screen (P24 AG) Lab Routine First trimester 1 Occurrences starting 10/31/2023 until 10/30/2024 [facility] Comment on above: 1 Occurrences starti ng 10/31/2023 until 10/30/2024 End: 10-30-2024 LDH LDH Lab Routine First trimester 1 Occurrences starting 10/31/2023 until 10/30/2024 [facility] Comment on above: 1 Occurrences starti ng 10/31/2023 until 10/30/2024 End: 10-30-2024 Rubella IGG immune status Rubella IGG immune status Lab Routine First trimester 1 Occurrences starting 10/31/2023 until 10/30/2024 [facility] Comment on above: 1 Occurrences starti ng 10/31/2023 until 10/30/2024 End: 10-30-2024 Syphilis Total(Unknown Syphilis Status) Syphilis Total(Unknown Syphilis Status) Lab Routine First trimester 1 Occurrences starting 10/31/2023 until 10/30/2024 [facility] Comment on above: 1 Occurrences starti ng 10/31/2023 until 10/30/2024 End: 10-30-2024 Type and screen Type and screen Blood Bank Routine First trimester 1 Occurrences starting 10/31/2023 until 10/30/2024 [facility] Comment on above: 1 Occurrences starti ng 10/31/2023 until 10/30/2024 End: 10-30-2024 Urate [Mass/volume] in Serum or Plasma Uric acid Lab Routine First trimester 1 Occurrences starting 10/31/2023 until 10/30/2024 [facility] Comment on above: 1 Occurrences starti ng 10/31/2023 until 10/30/2024 End: 10-30-2024 Urinalysis Urinalysis Lab Routine First trimester 1 Occurrences starting 10/31/2023 until 10/30/2024 [facility] Comment on above: 1 Occurrences starti ng 10/31/2023 until 10/30/2024 End: 10-30-2024 Urine Creatinine,random Urine Creatinine,random Lab Routine First trimester 1 Occurrences starting 10/31/2023 until 10/30/2024 [facility] Comment on above: 1 Occurrences starti ng 10/31/2023 until 10/30/2024 End: 10-30-2024 Urine protein creatinine ratio Urine protein creatinine ratio Lab Routine First trimester 1 Occurrences starting 10/31/2023 until 10/30/2024 [facility] Comment on above: 1 Occurrences starti ng 10/31/2023 until 10/30/2024 End: 10-30-2024 Varicella zoster antibody, IgG Varicella zoster antibody, IgG Lab Routine First trimester 1 Occurrences starting 10/31/2023 until 10/30/2024 [facility] Comment on above: 1 Occurrences starti ng 10/31/2023 until 10/30/2024 Immunizations Immunization Date Immunization Notes Care Provider Jack hernandez 02-09-2022 tetanus toxoid, redu brady diphtheria toxoid, and acellular pertussis vaccine, adsorbed Carline Krotzer EASTERN PHILOSOPHY PROFESSOR-DIRECT SERVICE WORKER Work Phone: [facility] 12-01-2021 influenza, injectabl e, quadrivalent, preservative free Carline Krotzer EASTERN PHILOSOPHY PROFESSOR-DIRECT SERVICE WORKER Work Phone: [facility] 12-01-2021 influenza virus vaccine, unspecified formulation Carline Krotzer EASTERN PHILOSOPHY PROFESSOR-DIRECT SERVICE WORKER Work Phone: [facility] 11-25-2020 influenza, injectabl e, quadrivalent, contains preservative Kimberly Floro CNM Work Phone: [facility] 06-04-2020 COVID-19, mRNA, LNP- S, PF, 100mcg/0.5mL Dose Carline Krotzer EASTERN PHILOSOPHY PROFESSOR-DIRECT SERVICE WORKER Work Phone: [facility] 05-07-2020 COVID-19, mRNA, LNP- S, PF, 100mcg/0.5mL Dose Carline Krotzer EASTERN PHILOSOPHY PROFESSOR-DIRECT SERVICE WORKER Work Phone: [facility] 11-15-2019 influenza, injectabl e, quadrivalent, contains preservative Kimberly Floro CNM Work Phone: [facility] 11-20-2017 seasonal influenza, intradermal, preservative free Kimberly Floro CNM Work Phone: [facility] 11-16-2017 influenza, injectabl e, quadrivalent, preservative free Kimberly Floro CNM Work Phone: [facility] 10-09-2015 influenza, seasonal, injectable, preservative free Kimberly Floro CNM Work Phone: [facility] 10-09-2015 tetanus toxoid, redu brady diphtheria toxoid, and acellular pertussis vaccine, adsorbed Kimberly Floro CNM Work Phone: [facility] 02-10-2013 influenza, seasonal, injectable Kimberly Floro CNM Work Phone: [facility] 08-24-2001 diphtheria, tetanus toxoids and acellular pertussis vaccine, unspecified formulation Kimberly Floro CNM Work Phone: [facility] 08-24-2001 measles, mumps and rubella virus vaccine Kimberly Floro CNM Work Phone: [facility] 08-24-2001 poliovirus vaccine, inactivated Kimberly Floro CNM Work Phone: [facility] 11-21-1997 diphtheria, tetanus toxoids and acellular pertussis vaccine Kimberly Floro CNM Work Phone: [facility] 11-21-1997 haemophilus influenz ae type b vaccine, conjugate unspecified formulation Kimberly Floro CNM Work Phone: [facility] 11-21-1997 measles, mumps and rubella virus vaccine Kimberly Floro CNM Work Phone: [facility] 11-21-1997 poliovirus vaccine, inactivated Kimberly Floro CNM Work Phone: [facility] 04-14-1997 diphtheria, tetanus toxoids and acellular pertussis vaccine Kimberly Floro CNM Work Phone: [facility] 04-14-1997 haemophilus influenz ae type b vaccine, conjugate unspecified formulation Kimberly Floro CNM Work Phone: [facility] 04-14-1997 hepatitis B vaccine, pediatric or pediatric/adolescent dosage Kimberly Floro CNM Work Phone: [facility] 1996 diphtheria, tetanus toxoids and acellular pertussis vaccine Kimberly Floro CNM Work Phone: [facility] 1996 haemophilus influenz ae type b vaccine, conjugate unspecified formulation Kimberly Floro CNM Work Phone: [facility] 1996 poliovirus vaccine, inactivated Kimberly Floro CNM Work Phone: [facility] 1996 diphtheria, tetanus toxoids and acellular pertussis vaccine Kimberly Floro CNM Work Phone: [facility] 1996 haemophilus influenz ae type b vaccine, conjugate unspecified formulation Kimberly Floro CNM Work Phone: [facility] 1996 hepatitis B vaccine, pediatric or pediatric/adolescent dosage Kimberly Floro CNM Work Phone: [facility] 1996 poliovirus vaccine, inactivated Kimberly Floro CNM Work Phone: [facility] 1996 hepatitis B vaccine, pediatric or pediatric/adolescent dosage Kimberly Floro CNM Work Phone: [facility] Payers Date Payer Category Payer Commercial Managed C are - POS [employer] [id number] 2023 Managed Care HMO (unspecified) [id number] 2023 Private Health Insurance [place] POS [id number] 2023-Present [phone] [address] [place] [address] [id number] 2023 Private Health Insurance [id number] 2022 Private Health Insurance [id number] 2015 Private Health Insurance [id number] 1996 Unknown [id number] .2.1285 1996 Unknown [id number] [id number] .2.1285 1996 Unknown [id number] 2.16.840.1.606319.3.579 .2.1285 1996 Unknown [id number] 2.16.840.1.106066.3.579 .2.1258 1996 Unknown [id number] 2.16.840.1.236512.3.579 .2.1258 1996 Unknown [id number] 2.16.840.1.325536.3.579 .2.1258 1996 Unknown [id number] 2.16.840.1.490190.3.579 .2.1258 1996 Unknown [id number] 2.16.840.1.311958.3.579 .2.1258 1996 Unknown [id number] 2.16.840.1.246835.3.579 .2.1258 1996 Unknown [id number] 2.16.840.1.710956.3.579 .2.1258 1996 Unknown [id number] 2.16.840.1.977076.3.579 .2.1258 1996 Unknown [id number] 2.16.840.1.382239.3.579 .2.9 1996 Unknown [id number] 2.16.840.1.114018.3.579 .2.9 1996 Unknown [id number] 2.16.840.1.990441.3.579 .2.9 1996 Unknown [id number] 2.16.840.1.250746.3.579 .2.9 1996 Unknown [id number] [id number] .2.1259 Social History Date Type Detail Facility Start: 11-28-2016 Tobacco smoking status [facility] Unknown if ever smoked [facility] Phone: Start: 1996 Sex Assigned At Not on file [employer] Work Phone: Start: 09-16-2021 End: 05-25-2023 Tobacco smoking status [facility] Never smoked tobacco [facility] Start: 09-16-2021 End: 05-25-2023 Tobacco use and exposure Smokeless tobacco non-user [facility] Start: 09-21-2023 End: 11-07-2023 Alcoholic beverage intake Ex-drinker (finding) [facility] Start: 06-15-2023 End: 06-22-2023 History of Social function [facility] Start: 06-15-2023 End: 06-22-2023 Social connection and isolation panel [facility] Do you belong to any clubs or organizations such as confucianist groups, unions, fraternal or athletic groups, or [...] or more drinks on 1 occasion? Never [facility] How hard is it for y [...] Gender identity Identifies as female gender (finding) [facility] Start: 09-23-2023 [facility] Start: 1995 Sex assigned at Female [facility] Start: 09-11-2014 Sex Female (finding) [facility] Start: 04-13-2022 Sexual orientation Heterosexual (finding) [facility] Goals Date Patient Goal Desired Activity /State Personal health goal Personal health goal Clinical Notes 10-31-2023 to 05-27-2024 Kimberly Barajas, DRAKE - 05/27/2024 11:00 AM EDRossy Barajas, JUDITH - 05/21/2024 11:30 AM Isra Barajas CNM - 05/16/2024 11:30 AM EDRsosy Barajas, DRAKE - 05/06/2024 6:00 PM EDT Note Date & Type Note Facility 05-27-2024 History of Presen t illness Narrative Subjective No chief complaint on file. Keyla Ng is a 28 y.o. at 37w2d with a working estimated date of delivery [...] Her is complicated by: Objective Physical Exam Weight: 206 lb Expected Total Weight Gain: 15 lb-25 lb Pregravid BMI: 29.10 BP: 140/90 Urine protein-negative Urine glucose-negative Assessment/Plan Diagnoses and all orders for this visit: Encounter for supervision of other normal , third trimester Elevated blood pressure affecting in third trimester, antepartum Group B streptococcal infection Gestational hypertension, third trimester Continue vitamin. Blood pressure log reviewed. All normal readings. Patient accidentally made the chart say August instead of May. She states she made it a week at a time. Today BP is 140/90 and she is scheduled for induction tonight at 5P for cervidil. Expected mode of delivery Follow up in 1 week for a routine visit. documented in this encounter [facility] 05-21-2024 History of Presen t illness Narrative Subjective No chief complaint on file. Keyla Ng is a 28 y.o. at 36w3d with a working estimated date of delivery [...] liveborn , Pre-eclampsia Her is complicated by: GBS + in urine Objective Physical Exam weight: 206 lb Expected Total Weight Gain: 15 lb-25 lb Pregravid BMI: 29.10 BP: 128/80 Urine protein-negative Urine glucose-negative Assessment/Plan Diagnoses and all orders for this visit: Encounter for supervision of other normal , third trimester Gestational hypertension, third trimester Blood pressure log reviewed and readings are excellent. She is taking her labetalol 100 mg BID. She is taking her blood pressure 1 hour after the medication. Doing well, denies headaches, no visual changes, no flank or epigastric pain. Patient inquires if she has to be induced at 37 weeks if her blood pressures are this good? I did explain hypertension protocol and recommendations. I will consult with Dr Crocker as well. Continue vitamin. Labs reviewed. GBS positive in urine lab, will treat in labor Expected mode of delivery Follow up in 1 week for a routine visit. documented in this encounter [facility] 05-16-2024 History of Presen t illness Narrative Subjective No chief complaint on file. Keyla Ng is a 28 y.o. at 35w5d with a working estimated date of delivery [...] liveborn , Pre-eclampsia Her is complicated by: hypertension. Patient on labetalol 100 mg BID Objective Physical Exam weight: 204 lb Expected Total Weight Gain: 15 lb-25 lb Pregravid BMI: 29.10 BP: 130/90 Patient is taking her blood pressure at home and recording on paper. Paper brought in today and blood pressures reviewed. BP ranging from 104/67 with the highest pressure being 124/71. No c/o headache, visual changes, epigastric or flank pain. Doing well. She states she even feels better since starting the medication. She states she feels better on the medication. At first I felt weird, but I feel good. I feel like I have more energy, and not as tired. Continue to monitor blood at home and report anything 140/90 or greater to me. PVU Urine protein-negative Urine glucose-negative Assessment/Plan Diagnoses and all orders for this visit: Elevated blood pressure affecting in third trimester, antepartum Encounter for supervision of other normal , third trimester Continue vitamin. Labs reviewed. GBS positive in urine Expected mode of delivery Follow up in 1 week for a routine visit. documented in this encounter [facility] 05-06-2024 History of Presen t illness Narrative Subjective No chief complaint on file. Keyla Ng is a 28 y.o. at 34w2d [...] liveborn , Pre-eclampsia Her is complicated by: anxiety Objective [...] it will come down. She is seeing [facility] and I'm going to have her start taking her blood pressure at home twice a day. PVU Urine sent for total protein, creatinine ratio. Continue vitamin. Labs reviewed. GBS taken. Expected mode of delivery Follow up in 1 week for a routine visit. documented in this encounter [facility] 04-09-2024 History of Presen t illness Narrative Subjective No chief complaint on file. Keyla Ng is a 28 y.o. at 30w3d [...] third trimester Patient has final appt with M and they keep asking her why are [...] a routine visit. documented in this encounter [facility] 03-28-2024 History of Presen t [...] gender. Have you been seen here at [facility] in a previous ? No Recent ER visits or hospitalizations? no Bring blood sugar log or meter with you today? (Please bring them with you for every visit at [facility]) n/a Flu vaccine (Dec-April)? No Any concerns that you would like me to mention to the provider today? No Video Visit via Real-time Synchronous Audiovisual Provider Location: [facility] AT [address] [phone] Patient Location: [place] Patient Location Early Intervention Specialist: None Video Visit Consent Statement: I discussed [...] that there are some limitations compared to [id number] evaluations. We elected to proceed. REASON FOR CONSULTATION: elevated BP, maternal papilledema HISTORY OF PRESENT ILLNESS: Keyla Ng is a pleasant 28 y.o. at [...] Vag-Spont EPI N KYLE Comments: induced Complications: [place] with tachycardia during labor, Preeclampsia MEDICAL HISTORY: [...] TESTS AND ULTRASOUND REPORTS: Referral records and [facility] chart were reviewed Pertinent Ultrasound findings are see formal ultrasound report. PHYSICAL EXAMINATION: BP 125/85 Pulse 94 Ht 165.1 cm (5' 5 ) Wt 89 kg (196 lb 3.2 oz) LMP 09/09/2023 BMI 32.65 kg/m Well-appearing in no distress. Respirations not labored, speaking comfortably in full sentences Gravid abdomen OVERALL ASSESSMENT -Keyla Ng is a pleasant 28 y.o. at [...] repeat growth ultrasound in 4-6 weeks through [facility] Repeat growth ultrasound following completion of level 2 anatomy through primary OB, anticipated at 37-38 weeks gestation Anticipate term delivery at her local hospital. No indication for early term delivery based on current clinical picture. Vaginal delivery is preferred mode, reserve for usual obstetrical indications. DISPOSITION: At this point the patient is in complete care of her sustainable systems analyst. Patient does have ultrasound scheduled with us. Thank you for allowing me to participate in the care of Keyla Ng. If there any questions please do not hesitate to contact us. Raheem Mayes MD Maternal- Medicine [facility] [address] [facility] [address] [place] [address] [facility], the CDC, and other organizations representing maternal and public health professionals recommend that , , and lactating people and those considering receive the COVID-19 vaccination. Vaccination is the best method to reduce maternal and complications of SARS-CoV-2 infection. This document was created with [employer] technology. Though I make every effort to review the dictation as it is transcribed, on occasion the spoken word can be misinterpreted by the technology leading to inappropriate words, phrases, or sentences. This note is addressed to the requesting provider as a consultation for clinical guidance. Specific medical abbreviations are occasionally used and those are generally approved by the [place]?Board of?Obstetrics and?Gynecology?as well as?Coleman harvey abbreviations. The above plan of care was based solely on the diagnoses for which a consultation was requested. ?More frequent testing may be indicated based on her other medical/obstetrical conditions. The management of other or medical conditions is beyond the scope of requested consultation and will continue to be followed by the primary sustainable systems analyst or primary care provider. Note to patient: The Century Cures Act makes medical notes like [...] the practitioner. f [facility] History of Presen t illness Narrative Subjective No chief complaint on file. Keyla Ng is a 28 y.o. at 25w3d [...] to consult with Dr Crocker for recommendation. MFM appt will be beneficial to her also. The following portions of the chart were reviewed this encounter and updated as appropriate: Patient sent to [facility] for OBS. Orders given to [place] Objective Physical Exam weight: 195 lb Expected Total Weight Gain: 15 lb-25 lb Pregravid BMI: 29.10 BP: (!) 170/100 Urine protein Urine glucose Labs: reviewed Imaging Assessment/Plan Continue vitamin. Labs reviewed. Rhogam GTT . Follow up in 2 weeks for a routine visit. documented in this encounter [facility] 02-06-2024 History of Presen t [...] a routine visit. documented in this encounter [facility] 01-03-2024 History of Presen [...] Gynecology related condition in second trimester - OB follow up transabdominal approach; Future Continue vitamin. Labs reviewed Rhogam GTT at 28 weeks Follow up in 4 weeks for a routine visit. documented in this encounter [facility] 12-07-2023 History of Presen [...] a routine visit. documented in this encounter [facility] 11-14-2023 Miscellaneous Notes Patient called to cancel her initial ob with provider appointment for next week. Per the patient since my phone call appointment I have been thinking & with the changes I will be seeing [facility] for this . Appointment on 11/23/23 has been cancelled. NOTED documented in this encounter [facility] 11-14-2023 Telephone encounter Note Patient called to cancel her initial ob with provider appointment for next week. Per the patient since my phone call appointment I have been thinking & with the changes I will be seeing [facility] for this . Appointment on 11/23/23 has been cancelled. [facility] 11-14-2023 Telephone encounter Note NOTED [facility] 11-07-2023 History of Presen t illness Narrative penSubjective Keyla Ng is a 28 y.o. at 8w3d with a working estimated date of delivery of 06/15/2024, by Last Menstrual Period who presents for an initial visit. This is planned. Patient Care Team: Rosy Nascimento MD as PCP - General (Family Medicine) [...] also given office phone number and [facility] number to call in case of an emergency or after hours needs. PVU and all questions answered. We did discuss place of delivery. Patient should plan to go to [facility] for all services unless an emergency and they need to go to the closest ER. 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 another facility but I did explain I am now at [facility] 100% of the time and would like to do all deliveries there. documented in this encounter [facility] 10-31-2023 History of Presen t illness Narrative OBI-LMP-8-3. Last pap was 8-3. Pt declined genetic testing. Pt's dad is DM-early 1 HR GTT ordered. Pt has HX of preeclampsia with first -baseline labs ordered. OB Intake Video Visit 28 y.o. at 7w3d contacted through [employer] for OB intake video visit. verified and [...] preeclampsia, asthma, anxiety / ADHD. 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 Discussed testing. Pt declines all. The patient reports that there is not domestic violence in her life. Discussed exercise, diet and weight gain. Discussed smoking, alcohol use and drug use. Patient denies all. Discussed early danger signs and when/how to notify provider. Reviewed CNM / DIRECT SERVICE WORKER care, collaboration & referral to ELECTRICAL MAINTENANCE MECHANIC as needed. Reviewed course of care. Discussed CDC recommendation for exclusive for the first 6 months. Patient has been covid vaccinated. Discussed recommendations in . Patient is taking an OTC vitamin. All questions answered. Educational materials provided through [employer]. Ultrasound and labs ordered. Appointment scheduled for initial OB visit with provider on 11/22/23. COLETTE Adam 10/31/23 1331 documented in this encounter [facility] Evaluation note Diagnosis Encounter for supervision of other normal , second trimester- Primary documented in this encounter [facility]* Diagnosis examination or test, positive result Encounter for supervision of other normal , first trimester related condition in second trimester documented in this encounter [facility] HealthcareEvaluation note* Diagnosis Encounter for supervision of [...] third trimester, antepartum documented in this encounter [facility]* Diagnosis First trimester - Primary state, incidental [facility] Diagnosis Hx of preeclampsia, prior , currently - Primary with other poor obstetric history Elevated BP without diagnosis of hypertension 28 weeks gestation of [facility]* Diagnosis Encounter for supervision of other normal , third trimester- Primary documented in this encounter [facility]* Diagnosis Elevated blood pressure affecting in third trimester, antepartum- Primary documented in this encounter [facility]* Diagnosis Elevated blood pressure affecting in third trimester, antepartum- Primary Encounter for supervision of other normal , third trimester documented in this encounter [facility] HealthcareEvaluation note* Diagnosis Encounter for supervision of other normal , third trimester- Primary Gestational hypertension, third trimester documented in this encounter [facility] HealthcareEvaluation note* Diagnosis Encounter for supervision of other normal , third trimester- Primary Elevated blood pressure affecting in third trimester, antepartum Group B streptococcal infection Streptococcus infection in conditions classified elsewhere and of unspecified site, group B Gestational hypertension, third trimester documented in this encounter [facility] HealthcareInstructionsNot on filedocumented in this encounterProHol[facility] SystemInstructionsNot on filedocumented in this encounterZanesville City [facility] SystemInstructions* Attachments The following attachments cannot be sent through Care Everywhere. * Activity during (Malian) * How to Adapt to Physical Changes During (Malian) * care (Malian) documented in this encounterProHol[facility] SystemInstructionsNot on file documented in this encounterZanesville City [facility] SystemReason for visit Narrative* Maternity Services (Routine) - Closed Specialty Diagnoses / Procedures Referred By Sarah lind Referred To Contact Obstetrics and Gynecology Diagnoses examination or test, positive result Encounter for supervision of other normal , first trimester Procedures IN OFFICE/OUTPATIENT [facility] Kimberly Barajas CNM [address] [place] [address] Phone: tel: fax: Kimberly Barajas CNM [address] [place] [address] Phone: tel: fax: Referral ID Status Reason Start Date Expiration Date V isits Requested Visits Authorized [id number] Closed Specialty Services Required 01/01/2024 06/29/2024 1 1 [facility] Healthcare Summary Purpose Family History No Family [...] your doctor if you can take an daip-ztg-igoecta medicine. Keep the anal area clean, but [...] or psyllium (available in bulk at most [employer] food stores) and sprinkling it on foods [...] Log into your personal health record on [email or web address] and enter F228 in the Education box to learn more about Hemorrhoids: Care Instructions. Current as of: September 15, 2015 Content Version: 11.2 [id number] [employer]. Care instructions adapted under license by your healthcare professional. If you have questions about a medical condition or this instruction, always ask your healthcare professional. [employer] disclaims any warranty or liability for your use of this information. in this encounter History of Present Illness * Cathi Serrano PA-C - 11/28/2016 5:59 PM EDT Formatting of this note may be different from the original. PATIENT NAME: Keyla Nicole [facility] [address] [place] [id number] : 1995 DATE OF VISIT: 11/28/2016 #: [...] hemorrhoids several months ago. Was away at [facility] and noted to larger and more painful/tender. [...] section and content) DATE CREATED AUTHOR 08/01/2017 [facility] DATE CREATED AUTHOR AUTHOR'S ORGANIZ ATION 01/31/2021 [facility]ical Specialist DATE CREATED AUTHOR AUTHOR'S ORGANIZ ATION 03/30/2024 [facility] DATE CREATED AUTHOR AUTHOR'S ORGANIZ ATION 05/26/2024 [facility] dical Specialists EPIC Reason for Visit (unrecogniz ed section and content) Reason Comments Hemorrhoids history of hemorroid s, new hemorroid is bigger than normal out of rectum with bleeding and hard to sit very painful, onset 1 week ago Reason Comments Initial Visit Reason Comments Initial Visit Reason Comments Hypertension Care Teams (unrecognized sec tion and content) Professional Application Designer Relationship Specialty Start Date End Date Rosy Nascimento MD [address] [facility] [place] [address] PCP - General Family Medicine 05/29/23 Adenike Atkins NP [address] [facility] [address] [place], [place] [id number] Family Medicine 05/29/23 Professional Application Designer Relationship Specialty Start Date End Date Rosy Nascimento MD [address] [facility] [place] [address] PCP - General Family Medicine 05/29/23 Pump, Adenike, TIRE SPOTTER [address] [place] [address] Family Medicine 05/29/23 Professional Application Designer Relationship Specialty Start Date End Date Rosy Nascimento MD [address] [place] [address] PCP - General Family Medicine 05/29/23 Pump, Adenike, TIRE SPOTTER [address] [place] [address] Family Medicine 05/29/23 Professional Application Designer Relationship Specialty Start Date End Date Rosy Nascimento MD [address] [place] [address] PCP - General Family Medicine 05/29/23 PumpAdenike, TIRE SPOTTER [address] [place] [address] Family Medicine 05/29/23 Professional Application Designer Relationship Specialty Start Date End Date Rosy Nascimento MD [address] [place] [address] PCP - General Family Medicine 05/29/23 PumpAdenike, TIRE SPOTTER [address] [place] [address] Family Medicine 05/29/23 Professional Application Designer Relationship Specialty Start Date End Date Rosy Nascimento MD [address] [place] [address] PCP - General Family Medicine 05/29/23 PumpAdenike, TIRE SPOTTER [address] [place] [address] Family Medicine 05/29/23 Professional Application Designer Relationship Specialty Start Date End Date FreddyLynette AissatouDO [address] [place] [address] PCP - General Family Medicine 01/24/22 Professional Application Designer Relationship Specialty Start Date End Date FreddyLynette AissatouDO [address] [facility] [place] [address] PCP - General Family Medicine 01/24/22 Professional Application Designer Relationship Specialty Start Date End Date Lynette Hayes AissatouDO [address] [facility] [place] [address] PCP - General Family Medicine 01/24/22 Professional Application Designer Relationship Specialty Start Date End Date Lynette Hayes AissatouDO [address] [facility] [place] [address] PCP - General Family Medicine 01/24/22 Professional Application Designer Relationship Specialty Start Date End Date Rosy Nascimento MD [address] [facility] [place] [address] PCP - General Family Medicine 05/29/23 Adenike Atkins NP [address] [facility] [place] [address] Family Medicine 05/29/23 Professional Application Designer Relationship Specialty Start Date End Date Rosy Nascimento MD [address] [facility] [place] [address] PCP - General Family Medicine 05/29/23 Adenike Atkins TIRE SPOTTER [address] [facility] [place] [address] Family Medicine 05/29/23 Professional Application Designer Relationship Specialty Start Date End Date Rosy Nascimento MD [address] [place] [address] PCP - General Family Medicine 05/29/23 Adenike Atkins TIRE SPOTTER [address] [place] [address] Family Medicine 05/29/23 Professional Application Designer Relationship Specialty Start Date End Date Rosy Nascimento MD [address] [place] [address] PCP - General Family Medicine 05/29/23 Adenike Atkins TIRE SPOTTER [address] [place] [address] Family Medicine 05/29/23 Professional Application Designer Relationship Specialty Start Date End Date Rosy Nascimento MD [address] [place] [address] PCP - General Family Medicine 05/29/23 Adenike Atkins NP [address] [place] [address] [facility] Medicine 05/29/23 FOR RECORDS PERTAINING TO PATIENTS [...] BE BASED ON THE PRIMARY CLINICAL RECORDS. [facility] [employer] [facility]. provides no warranty or guarantee of the accuracy or completeness of information in this document.
[2024-05-27 17:42] LABS: Hematocrit 37.4 % (36.0-48.0); Hemoglobin 12.4 g/dL (12.0-16.0); Mean Corpuscular HGB Conc 33.2 g/dL (29.9-35.2); Mean Corpuscular Hemoglobin 29.6 pg (26.7-34.0); Mean Corpuscular Volume 89.3 fL (81.0-99.0); Mean Platelet Volume 9.7 fL (9.5-13.5); Platelet Count 225 10^3/uL (150-450); Red Blood Count 4.19 10^6/uL (4.20-5.40); Red Cell Distribution Width 17.8 % (11.0-15.0); White Blood Count 10.5 10^3/uL (4.0-11.0)
[2024-05-27 17:54] LABS: Amphetamine Screen Urine NEGATIVE (NEGATIVE); Barbiturates Screen Urine NEGATIVE (NEGATIVE); Benzodiazepines Screen Urine NEGATIVE (NEGATIVE); Buprenorphine Screen Urine NEGATIVE (NEGATIVE); Cannabinoid Screen Urine NEGATIVE (NEGATIVE); Cocaine Screen Urine NEGATIVE (NEGATIVE); Methadone Screen Urine NEGATIVE (NEGATIVE); Methamphetamines Screen Urine NEGATIVE (NEGATIVE); Opiate Screen Urine NEGATIVE (NEGATIVE); Oxycodone Screen Urine NEGATIVE (NEGATIVE); Phencyclidine Screen Urine NEGATIVE (NEGATIVE); Tricyclic Antidepressant Urine NEGATIVE (NEGATIVE)
[2024-05-27] MEDS: LACTATED RINGER'S SOLUTION 1,000 ML 999 ML IV (18:21)
[2024-05-27] MEDS: LABETALOL 100 MG TABLET 100 EACH PO (18:30)
[2024-05-27] MEDS: DINOPROSTONE 10 MG VAG INSERT.ER VAGINAL (19:11)
[2024-05-27] MEDS: ZOLPIDEM TARTRATE 5 MG TABLET PO (22:53)
[2024-05-28] VITALS (73 sets, daily range): BP systolic 93–142; BP diastolic 58–92; PULSE 91–146; TEMP 35.7–36.7
[2024-05-28 02:19] LABS: Creatinine Urine Random 52.23 mg/dL (20.00-300.00); Protein Creatinine Ratio Urine 0.24; Total Protein Urine Random 12.6 mg/dL (<=11.9)
[2024-05-28] MEDS: LABETALOL 100 MG TABLET 100 EACH PO (07:00)
[2024-05-28] MEDS: LACTATED RINGER'S SOLUTION 1,000 ML 125 ML IV ×2 (07:09→15:50)
[2024-05-28] MEDS: OXYTOCIN/0.9 % SODIUM CHLORIDE 10 UNITS/500 ML PLAST..BAG 6 UNIT IV (07:11)
[2024-05-28] MEDS: PENICILLIN G POTASSIUM 5,000,000 UNIT in 0.9 % SODIUM CHLORIDE 100 ML 200 UNIT IV (07:12)
[2024-05-28] MEDS: PENICILLIN G POTASSIUM 2,500,000 UNIT in 0.9 % SODIUM CHLORIDE 50 ML 100 UNIT IV ×3 (11:23→19:42)
[2024-05-28] MEDS: ONDANSETRON PF 4 MG/2 ML VIAL IV (15:22)
[2024-05-28] MEDS: NALBUPHINE HCL 10 MG/ML AMPULE 20 MG IM (15:24)
[2024-05-28] MEDS: OXYTOCIN/0.9 % SODIUM CHLORIDE 10 UNITS/500 ML PLAST..BAG 60 UNIT IV (17:21)
[2024-05-28] MEDS: ROPIVACAINE HCL/PF 400 MG/200 ML PREMIX 8 MG EPIDURAL (18:51)
[2024-05-28] MEDS: OXYTOCIN/0.9 % SODIUM CHLORIDE 20 UNITS/1,000 ML PLAST..BAG 125 UNIT IV (22:21)
[2024-05-28] MEDS: LIDOCAINE HCL 1% 200 MG/20 ML MDV INJ (22:25)
--- NOTE | 2024-05-28 22:53 | P.OBHP_ITS ---
OB - H&P: HPI History of Present Illness Chief complaint: INDUCTION : 2 Para: 1 Gestational age based on last menstrual period: 37.2 Indications for induction: maternal hypertension History of Present Dating criteria: LMP confirmed by 1st trimester US care: good care Ultrasounds: normal 1st trimester US and normal mid trimester US complications: preeclampsia complications comment: preeclampsia without severe features Medical complications OB: other (anxiety ) Labs Blood type: A (+) positive Rubella: immune RPR/VDLR: nonreactive GBS status: positive HBsAG: negative Review of Systems ROS Status of ROS: 10 or more systems reviewed and unremarkable except as noted in history and below Psychiatric: Reports: anxiety PFSH PFSH Social History Highest level of school completed/degree received: Bachelor's degree Little interest or pleasure in doing things: not at all Feeling down, depressed, or hopeless: not at all Meds Home Medications and Allergies Home Medications ?Medication ?Instructions ?Recorded ?Confirmed ?Type docusate sodium 100 mg capsule 100 mg PO BID #60 caps 05/09/24 Rx (Colace) ferrous sulfate 325 mg (65 mg 325 mg PO BID anemia #60 tabs 05/09/24 Rx iron) tablet labetalol 100 mg tablet 100 mg PO BID #30 tabs 05/09/24 Rx Allergies Allergy/AdvReac Type Severity Reaction Status Date / Time azithromycin AdvReac Intermediate Vomiting Verified 03/05/24 15:24 Exam Constitutional Vital Signs, click to edit/add: Last Vital Signs Temp 98 F 05/28/24 20:00 Pulse 114 H 05/28/24 22:52 Resp 16 05/28/24 20:00 BP 126/74 05/28/24 22:52 Documenting provider has reviewed patient's vital signs: yes Common normals: no apparent distress and oriented x3 General appearance: cooperative, comfortable, well kempt and well developed Orientation/consciousness: Yes awake, Yes oriented to person, Yes oriented to place and Yes oriented to time HENMT Common normals: normocephalic Eye Common normals: EOMs intact bilaterally Neck & C-Spine Common normals: full ROM Lymph Lymphatic: no lymphadenopathy noted Chest Common normals: inspection of chest normal Respiratory Common normals: normal respiratory effort, no retractions, no use of accessory muscles and clear to auscultation bilaterally Effort & inspection: able to speak in complete sentences Auscultation: clear to auscultation bilaterally Cardio Common normals: regular rate and regular rhythm Rate: regular rate Rhythm: regular rhythm GI Common normals: Normal to inspection, nondistended, normoactive bowel sounds present, soft to palpation and non-tender Inspection: normal to inspection Auscultation: normoactive bowel sounds Palpation: soft Rectal Exam - Female: deferred Common normals: no CVA tenderness Back & Pelvis Common normals: no CVA tenderness Extremity Common normals: normal to inspection and full ROM Neuro Common normals: oriented x3 Sensorium/orientation: awake, alert, oriented to person, oriented to place and oriented to time Psych Common normals: mental status grossly normal, thought process normal, cooperative, affect normal, speech normal, activity/motor behavior normal, denies hallucinations, denies homicidal ideation and denies suicidal ideation Appearance: grossly normal Attitude: calm Speech: normal speech OB - A/P Assessment and Plan (1) Pre-eclampsia: Assessment and Plan: without severe features Qualifiers: Trimester: third trimester Qualified Code(s): O14.93 - Unspecified pre- eclampsia, third trimester (2) Term :
--- NOTE | 2024-05-28 23:04 | PM.OBPRCVD ---
Procedure Procedure: Intrapartal events: Mild Preeclampsia Induction method: other (cervidil ) Delivery augmentation: rupture of membranes and pitocin Delivery monitor: external FHT and external uterine Route of delivery: L&D Laceration Description: periurethral - 1st degree and perineal - 1st degree Delivery repair: Vicryl Estimated blood loss (mL): 200 Anesthesia type: Epidural Delivery date: 05/28/24 presentation: vertex Placental delivery description: Spontaneous cord description: 3 Vessels, Loose, Reduced (reduced with delivery ) and Around Body x1 heart rate - 1 minute: 100 bpm or Greater respiratory effort - 1 minute: Spontaneous/Strong Cry muscle tone - 1 minute: Minimal Flexion/Extension reflex response - 1 minute: Minimal Response color - 1 minute: Bluish Hands or Feet total score - 1 minute: 7 heart rate - 5 minute: 100 bpm or Greater respiratory effort - 5 minute: Spontaneous/Strong Cry muscle tone - 5 minute: Active Movement reflex response - 5 minute: Prompt Response color - 5 minute: Bluish Hands or Feet total score - 5 minute: 9
[2024-05-28] MEDS: IBUPROFEN 600 MG TABLET PO (23:55)
[2024-05-29] VITALS (7 sets, daily range): BP systolic 110–134; BP diastolic 67–85; PULSE 75–117; TEMP 36.6–36.9
[2024-05-29] MEDS: GLYCERIN/WITCH HAZEL PADS 1 PAD TOPICAL (01:00)
[2024-05-29] MEDS: BENZOCAINE/MENTHOL 85 GRAM SPRAY BOTTLE 1 APPLIC TOPICAL (01:00)
[2024-05-29 06:28] LABS: Basophils Percent Auto 0.1 % (0.2-2.0); Eosinophils Percent Auto 0.1 % (0.9-7.0); Hematocrit 35.9 % (36.0-48.0); Hemoglobin 11.7 g/dL (12.0-16.0); Immature Granulocytes Abs Auto 0.13 10^3/uL (0.00-0.03); Immature Granulocytes Pct Auto 0.9 % (0.0-0.5); Lymphocytes Absolute Auto 1.2 10^3/uL (1.2-3.8); Lymphocytes Percent Auto 8.3 % (20.5-60.0); Mean Corpuscular HGB Conc 32.6 g/dL (29.9-35.2); Mean Corpuscular Hemoglobin 29.5 pg (26.7-34.0); Mean Corpuscular Volume 90.4 fL (81.0-99.0); Mean Platelet Volume 9.4 fL (9.5-13.5); Monocytes Percent Auto 6.8 % (1.7-12.0); Neutrophils Absolute Auto 11.7 10^3/uL (1.4-6.5); Neutrophils Percent Auto 83.8 % (43.0-75.0); Platelet Count 161 10^3/uL (150-450); Red Blood Count 3.97 10^6/uL (4.20-5.40); Red Cell Distribution Width 18.2 % (11.0-15.0)
--- NOTE | 2024-05-29 07:47 | P.OBPN_ITS ---
OB - PN: Subj Subjective Patient comments: no complaints and pain well controlled [facility] status: doing well Exam Constitutional Vital Signs, click to edit/add: Last Vital Signs Temp 98.5 F 05/29/24 03:32 Pulse 107 H 05/29/24 03:32 Resp 16 05/29/24 03:32 BP 120/71 05/29/24 03:32 O2 Del Method Room Air 05/29/24 03:32 Documenting provider has reviewed patient's vital signs: yes Common normals: no apparent distress Respiratory Common normals: normal respiratory effort and clear to auscultation bilaterally Cardio Common normals: regular rate and regular rhythm GI Common normals: Normal to inspection, nondistended, normoactive bowel sounds present Extremity Common normals: no clubbing, cyanosis or edema and no calf tenderness Results Labs Labs: Short CBC 05/29/24 Range/Units 06:18 WBC 14.0 H (4.0-11.0) 10^3/uL Hgb 11.7 L (12.0-16.0) g/dL Hct 35.9 L (36.0-48.0) % Plt Count 161 (150-450) 10^3/uL Urinary Catheter Management Urinary Catheter Management Straight: Cath placed during this visit: yes Urethral indwelling: No Insertion date: 05/28/24 Insertion time: 21:15 OB - PN: A/P Assessment and Plan (1) Pre-eclampsia: Qualifiers: Trimester: third trimester Qualified Code(s): O14.93 - Unspecified pre- eclampsia, third trimester (2) Term : Plan - Vaginal Delivery day: 1 Plan: routine care Time Spent with Patient Time: Total time spent is greater than 50% in coordination of care (as documented) at patient's floor/unit and/or counseling patient: Total time spent with greater than 50% in coordination of care (as documented) at patient's floor/unit and/or counseling patient: less than 15 minutes
[2024-05-29] MEDS: LABETALOL HCL 100 MG TABLET PO (09:00)
[2024-05-29] MEDS: DOCUSATE SODIUM 100 MG CAPSULE PO ×2 (09:00→22:34)
[2024-05-29] MEDS: IBUPROFEN 600 MG TABLET PO ×2 (09:00→17:23)
[2024-05-30 08:07] VITALS: BP 127/76; PULSE 89
[2024-05-30 08:08] VITALS: TEMP 36.7
[2024-05-30] MEDS: DOCUSATE SODIUM 100 MG CAPSULE PO (08:26)
[2024-05-30] MEDS: LABETALOL HCL 100 MG TABLET PO (08:27)
--- NOTE | 2024-05-30 08:33 | PM.OBPN ---
OB - PN: Subj Subjective Patient comments: no complaints [place] status: doing well feeding status: exclusively Exam Constitutional Vital Signs, click to edit/add: Last Vital Signs Temp 96.8 F L 05/30/24 08:08 Pulse 89 05/30/24 08:07 Resp 16 05/29/24 22:30 BP 127/76 05/30/24 08:07 O2 Del Method Room Air 05/29/24 22:30 Documenting provider has reviewed patient's vital signs: yes Common normals: no apparent distress Exam limitations: altered mental status General appearance: cooperative, comfortable, well kempt and well developed Orientation/consciousness: Yes awake, Yes oriented to person, Yes oriented to place and Yes oriented to time HENMT Common normals: normocephalic Eye Common normals: EOMs intact bilaterally General eye: normal appearance of both eyes Neck & C-Spine Common normals: full ROM and no lymphadenopathy Lymph Lymphatic: no lymphadenopathy noted Chest Common normals: inspection of chest normal Respiratory Common normals: normal respiratory effort Effort & inspection: able to speak in complete sentences Auscultation: clear to auscultation bilaterally Cardio Common normals: regular rate and regular rhythm Rate: regular rate Rhythm: regular rhythm GI Auscultation: normoactive bowel sounds Palpation: soft Common normals: no CVA tenderness Back & Pelvis Common normals: no CVA tenderness Extremity Common normals: normal to inspection General: normal exam except as noted Neuro Common normals: oriented x3 Sensorium/orientation: awake, alert, oriented to person, oriented to place and oriented to time Psych Common normals: mental status grossly normal Attitude: calm Activity/motor behavior: appropriate eye contact Speech: normal speech Urinary Catheter Management Urinary Catheter Management Straight: Cath placed during this visit: yes Urethral indwelling: No Insertion date: 05/28/24 Insertion time: 21:15 OB - PN: A/P Assessment and Plan (1) Pre-eclampsia: Qualifiers: Trimester: third trimester Qualified Code(s): O14.93 - Unspecified pre-eclampsia, third trimester (2) Term : Plan - Vaginal Delivery day: 2 Plan: discharge home Time Spent with Patient Time: Total time spent is greater than 50% in coordination of care (as documented) at patient's floor/unit and/or counseling patient: Total time spent with greater than 50% in coordination of care (as documented) at patient's floor/unit and/or counseling patient: less than 15 minutes
== END 2024-05-30 15:00 | disposition home or self-care (01) | DRG 807 ==
PROVIDERS: Admitting Provider Midwife; PCP Family Medicine; Visit Provider Midwife
DX: O13.4 Gestational [pregnancy-induced] hypertension without significant proteinuria, complicating childbirth (principal); O14.04 Mild to moderate pre-eclampsia, complicating childbirth; O70.0 First degree perineal laceration during delivery; O99.824 Streptococcus B carrier state complicating childbirth; Z37.0 Single live birth; Z3A.37 37 weeks gestation of pregnancy; Z90.49 Acquired absence of other specified parts of digestive tract
CPT/HCPCS: 36415; 51701; 59050; 59410; 80307; 82570; 84156; 85025; 85027; 86850; 86900; 86901; 88307; J2300; J2405; J2540; J2795